=== PATIENT | female | born 1940 | race Caucasian/White ===

== ENCOUNTER 2021-12-16 14:38 | Inpatient (IN) ==
[2021-12-16 16:19] LABS: Basophils # (auto) 0.04 K/uL (0-0.2); Basophils % (auto) 0.6 %; Eosinophils # (auto) 0.45 K/uL (0-0.5); Eosinophils % (auto) 7.2 %; Hematocrit (blood only) 36.5 % (37-47); Hemoglobin 11.4 g/dL (12.0-16.0); Immature Granulocytes # (auto) 0.01 K/uL (0.00-0.02); Immature Granulocytes % (auto) 0.2 %; Lymphocytes # (auto) 0.85 K/uL (1.2-3.4); Lymphocytes % (auto) 13.7 %; Mean Corpuscular Hemoglobin 28.4 pg (25-34); Mean Corpuscular Hgb Conc 31.2 g/dL (32-36); Mean Corpuscular Volume 90.8 fL (80-100); Mean Platelet Volume 8.6 fL (7.4-10.4); Monocytes # (auto) 0.53 K/uL (0.11-0.59); Monocytes % (auto) 8.5 %; Neutrophils # (auto) 4.33 K/uL (1.4-6.5); Neutrophils % (auto) 69.8 %; Platelet Count 214 K/uL (130-400); RDW Coefficient of Variation 15.2 % (11.5-14.5); RDW Standard Deviation 50.8 fL (36.4-46.3); Red Blood Count 4.02 M/uL (4.2-5.4); White Blood Count 6.21 K/uL (4.8-10.8)
[2021-12-16 16:30] LABS: INR 0.9 (0.9-1.1); Partial Thromboplastin Ratio 0.9; Partial Thromboplastin Time 23.9 Seconds (21.0-31.0); Prothrombin Time 9.5 Seconds (9.0-12.0)
[2021-12-16 16:53] LABS: Troponin I < 0.03 ng/ml (0-0.04)
[2021-12-16 16:55] LABS: Alanine Aminotransferase 14 U/L (7-52); Albumin Globulin Ratio 1.6 (0.9-2); Alkaline Phosphatase 62 U/L (34-104); Anion Gap 8 (3-11); Aspartate Aminotransferase 17 U/L (13-39); BUN Creatinine Ratio 23.8 (10-20); Bilirubin,Total 0.4 mg/dl (0.2-1.0); Blood Urea Nitrogen 25 mg/dl (6-23); Calcium 9.3 mg/dl (8.5-10.1); Carbon Dioxide 23 mmol/L (21-32); Chloride 106 mmol/L (98-107); Creatinine Clr Calc Pharmacy 33.6 ml/min; Est GFR (African American) 56.9 ml/min; Est GFR (Non-African American) 49.1 ml/min; Globulin 2.5 gm/dl (2.5-4.0); Glucose 105 mg/dl (70-99(Fasting)); Potassium 4.2 mmol/L (3.5-5.1); Sodium 137 mmol/L (136-145); Total Protein 6.5 gm/dl (6.0-8.3)
--- NOTE | 2021-12-16 17:13 | Electrocardiogram Report ---
Test Reason : Blood Pressure : / mmHG Vent. Rate : 075 BPM Atrial Rate : 075 BPM P-R Int : 142 ms QRS Dur : 098 ms QT Int : 410 ms P-R-T Axes : 017 060 053 degrees QTc Int : 457 ms Poor data quality, interpretation may be adversely affected Normal sinus rhythm Poor R wave progression, consider anterior [place] vs. lead placement vs. LVH Abnormal ECG When compared with ECG of 14-JUN-2015 10:42, Nonspecific T wave abnormality now evident in Inferior leads Confirmed by Shayne Morley ([id number]) on 12/16/2021 5:13:34 PM Referred By: Confirmed By:Yazan Morley
[2021-12-16 17:25] LABS: Appearance Urine Clear (Clear); Bacteria Urine Automated Negative (Negative); Bilirubin Urine Negative (Negative); Blood Urine 1+ (Negative); Color Urine Yellow; Glucose Urine UA 3+ (Negative); Ketones Urine Negative (Negative); Leukocyte Esterase Urine Negative (Negative); Nitrite Urine Negative (Negative); Protein Urine Negative (Negative); RBC Urine Automated 0-4 /hpf (0-4); Specific Gravity Urine 1.044 (1.000-1.030); Urobilinogen Urine Negative (Negative)
--- NOTE | 2021-12-16 17:46 | Emergency Department Note ---
Impression & Plan Asthma with exacerbation, Pulmonary embolism, Dyspnea ED Provider Note NAME: Mary HARRELL AGE: 81 SEX: F : 1940 ARRIVES VIA: Walk-In INFORMANT: Patient, ED PROVIDER(S): Rufus Beckham MD Chief Complaint: Shortness of breath HPI: Patient states that she developed shortness of breath that she noticed w patrick talking to a friend in the afternoon yesterday. Patient states that this is without a mask. The patient states that this seems significantly worse today. She called her outpatient provider referred her for further evaluation treatment as well as a CAT scan of the chest. Patient states that she did miss her breathing treatment today and she thinks that that would help improve her symptoms. The patient has had productive cough but that this is chronic in nature and secondary to a history of asthma. Patient denies any prior history of PE or DVT. The patient denies any leg swelling. The patient denies any calf pain, surgeries, procedures or hospitalizations that were recent. Patient denies any abdominal pain nausea vomiting. The patient otherwise states that she is compliant with her medications. The patient did have an outpatient CAT scan was referred here as the patient does have a chronic trace PE. ROS: See HPI for pertinent positives and negatives. A total of 10 systems were reviewed and otherwise negative. Past medical history: See below Surgical history: See below Social history: See below Physical Exam: GENERAL: NAD, wearing glasses, wearing a mask, non-toxic. EYE EXAM: Normal conjunctiva. PERRL, no anisocoria and EOM's grossly intact w/o pain. NECK: Supple, no nuchal rigidity, no adenopathy, non-tender. No signs of meningismus. LUNGS: Clear to auscultation. Normal chest wall mechanics. HEART: NSR, no MRG. ABDOMEN: Abdomen soft, non-tender, normo-active bowel sounds, no masses, no rebound or guarding. BACK: No CVA TTP. SKIN: No rashes and no bruising. UPPER EXTREMITIES: Upper extremities are grossly normal. LOWER EXTREMITIES: Grossly normal, no edema. Negative Homans' sign bilaterally. NEURO EXAM: A&O x3, cranial nerves II-XII grossly intact, normal speech, moves all 4 extremities on command w/o issue. Differential diagnoses: Reactive airway disease, pneumonia, pneumothorax, COPD, CHF, infections, cardiac ischemia, pulmonary embolism, musculoskeletal, gastrointestinal, as well as other pathologies. Course: Patient was seen and evaluated the bedside. Full history physical exam was performed. EKG interpreted by me Normal sinus rhythm, rate of 75, normal intervals, normal axis, no obvious ST changes. Imaging Studies: See Below Obtained prior to arrival CT ANGIOGRAM OF THE CHEST CLINICAL HISTORY: Dyspnea. COMPARISON STUDY: Chest CT dated 04/24/2019. TECHNIQUE: Following the IV administration of 121 cc of Optiray 320, CT angiogram of the chest was performed from the upper abdomen to the thoracic inl et utilizing the pulmonary embolus protocol. Images are reviewed in the axial, sagittal, and coronal planes. 3-D MIPS images are created and assessed. IV contrast was administered without complication. A dose lowering technique was utilized adhering to the principles of ALARA. There is streak artifact from the patient's left arm which could not be elevated above the chest. CT DOSE: 257.03 mGy.cm FINDINGS: Thyroid: Imaged portions of the thyroid gland are normal in size and attenuation. Thoracic aorta: There is mild atherosclerotic calcification of the thoracic aorta, which is normal in caliber and demonstrates standard 3-vessel arch anatomy. The thoracic aorta is not well opacified. Pulmonary vasculature: The main pulmonary arteries are markedly dilated indicating pulmonary artery hypertension. There are no filling defects identified in main, lobar, or proximal segmental pulmonary branches to suggest acute pulmonary embolus. Evaluation of the peripheral branches is degraded by mo tion artifact. There is trace chronic pulmonary embolus within a branch of the right upper lobe pulmonary artery seen on image #142. Heart: The patient is status post midline sternotomy. The heart is enlarged and without pericardial effusion. Lungs and pleural spaces: Evaluation of the lung parenchyma is degraded by motion artifact. There is no airspace consolidation typical for pneumonia or ple ural effusion. The trachea and central airways are clear. Dependent atelectasis is noted at the lung bases. Mediastinum: There is no mediastinal lymphadenopathy. Carmen: Clear. Axillae: There is no axillary lymphadenopathy. Upper abdomen: Hepatic cysts measure up to 3.5 cm. There is a tiny hiatal hernia. Skeletal structures: The skeletal structures are osteopenic. Degenerative change and hyperkyphosis are noted in the thoracic spine. No lytic or blastic bony lesions are seen. IMPRESSION: 1. There is no evidence of acute pulmonary embolus in the main, lobar, or proximal segmental pulmonary arteries. Evaluation of the segmental and subsegmental branches is degraded by motion artifact. 2. Trace chronic pulmonary embolus is seen within a branch of the right upper lobe pulmonary artery. 3. There is no airspace consolidation or pleural effusion. 4. Cardiomegaly with evidence of pulmonary artery hypertension. 5. Additional findings as above. ACT 112: Negative or not required by law. Electronically signed by: Rony Vera M.D. 12/16/2021 2:07 PM Dictated:12/16/21 1358 Transcribed: 12/16/21 1405 Cardiac monitoring: An order was placed for continuous cardiac monitoring. The monitor shows a rate of 72 with sinus rhythm. MDM: Patient was seen due to concern for shortness of breath. The patient did have an outpatient CT which showed that she has a chronic PE but the patient has no prior history of PE. The patient does not have any obvious signs of DVT on exam as the patient does not have any overt swelling calf pain or erythema. Blood work was obtained and the patient was treated symptomatically with albuterol treatments as the patient does have a known history of asthma. , Patient patient has a white count of 6 with a hemoglobin 11.4. The patient's platelet count is unremarkable. Kidney function unremarkable. The patient troponin is not detectable. Given the patient may have an elements of pulmonary hypertension cardiomegaly and possible PE think it reasonable for observation and treatment here in the hospital to discuss further treatment options for the patient. I did speak with the on-call hospitalist Dr. 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) Family History Other Cancer Hypertension Social History Smoking Status: Never smoker Preferred Language: Ukrainian Feels Safe at Home: Yes Immunizations: Vaccinated for COVID-19 Allergies Allergies Allergy/AdvReac Type Severity Reaction Status Date / Time furosemide Allergy Mild rash from Verified 12/16/21 20:36 "GENERIC" lasix Penicillins Allergy Unknown Unknown Verified 12/16/21 20:36 sitagliptin Allergy Unknown ANAPHYLAXIS Verified 12/16/21 20:36 Sulfa (Sulfonamide Allergy Unknown PATEINT Verified 12/16/21 20:36 Antibiotics) HAS TOLERATED LASIX empagliflozin Allergy Blister Unverified 12/16/21 20:36 [From Jardiance] codeine AdvReac Intermediate Confusion Verified 12/16/21 20:36 prednisone AdvReac Intermediate delerium Verified 12/16/21 20:36 [id number]-LEP-HmR Reductase AdvReac Intermediate elevated ck Verified 12/16/21 20:36 Inhibitor [Zblpeaa-Nka-Zjs Reductase Inhibitor] Home Meds Home Medications Medication Instructions Recorded Confirmed albuterol sulfate 90 mcg/actuation 2 puff INHALATION Q4 PRN 04/25/19 12/16/21 aerosol inhaler amlodipine 2.5 mg tablet 2.5 mg PO DAILY 04/25/19 12/16/21 calcium carbonate 600 mg-vitamin 1 tab PO 2XWK 04/25/19 12/16/21 D3 10 mcg (400 unit) tablet (Calcium 600 + D(3)) carvedilol 6.25 mg tablet 3.125 mg PO QPM 04/25/19 12/16/21 carvedilol 6.25 mg tablet 6.25 mg PO QAM 04/25/19 12/16/21 ethacrynic acid 25 mg tablet 25 mg PO 4XWK 04/25/19 12/16/21 multivitamin 2 tab PO QAM 04/25/19 12/16/21 repaglinide 1 mg tablet 1 mg PO TID 04/25/19 12/16/21 trazodone 50 mg tablet 50 mg PO HS PRN 04/25/19 12/16/21 acetaminophen 650 mg 1,300 mg PO QAM 12/16/21 12/16/21 tablet,extended release budesonide 0.5 mg/2 mL suspension 0.5 mg INHALATION BID 12/16/21 12/16/21 for nebulization clindamycin HCl 150 mg capsule 600 mg PO Q6H PRN 12/16/21 12/16/21 diclofenac sodium 1 % topical gel 2 g TOPICAL QID PRN 12/16/21 12/16/21 empagliflozin 10 mg tablet 10 mg PO DAILY 12/16/21 12/16/21 (Jardiance) fluoxetine 40 mg capsule 40 mg PO DAILY 12/16/21 12/16/21 fluticasone propionate 230 2 puff INHALATION BID 12/16/21 12/16/21 mcg-salmeterol 21 mcg/actuation HFA inhaler (Advair HFA) glucosamine-chondroitin 250 mg-200 1 tab PO DAILY 12/16/21 12/16/21 mg tablet (Osteo Bi-Flex) ipratropium 0.5 mg-albuterol 3 mg 3 ml INHALATION Q6 PRN 12/16/21 12/16/21 (2.5 mg base)/3 mL nebulization soln levocetirizine 5 mg tablet 5 mg PO HS 12/16/21 12/16/21 lisinopril 10 mg tablet 10 mg PO BID 12/16/21 12/16/21 metformin 500 mg tablet,extended 500 mg PO BID 12/16/21 12/16/21 release 24 hr tiotropium bromide 2.5 2 puff INHALATION DAILY 12/16/21 12/16/21 mcg/actuation mist for inhalation (Spiriva Respimat) Results & Data (ED) Vital Signs Vital Signs - 24 hr 12/16/21 15:06 12/16/21 17:40 12/16/21 18:02 Temperature 36.1 C L Temperature Source Temporal Artery Scan Pulse Rate 82 73 71 Pulse Rate [Apical] 75 Pulse Rate [Exercises] Pulse Rate [Recovery] Pulse Rate [Resting] Pulse Rate from SpO2 Sensor 70 Respiratory Rate 16 19 17 Respiratory Rate [Exercises] Respiratory Rate [Recovery] Respiratory Rate [Resting] Respiratory Effort / Characteristics Non-Labored Non-Labored Spontaneous Respiratory Depth Normal Blood Pressure 143/65 H 143/57 H Blood Pressure [Right Arm] 158/66 H Blood Pressure Mean 91 85 Blood Pressure Mean [Right Arm] 96 Pulse Oximetry 100 100 100 Pulse Oximetry [Exercises] Pulse Oximetry [Recovery] Pulse Oximetry [Resting] Oxygen Delivery Method Room Air Room Air Room Air Sepsis Recent Fever Within 48 Hours No Sepsis New/Unexplained Change in Mental Status No Sepsis Action Taken by Nursing No Action Required 12/16/21 18:30 12/16/21 19:00 12/16/21 19:03 Temperature Temperature Source Pulse Rate 71 77 Pulse Rate [Apical] Pulse Rate [Exercises] 107 H Pulse Rate [Recovery] 86 Pulse Rate [Resting] 77 Pulse Rate from SpO2 Sensor 68 71 Respiratory Rate 14 15 Respiratory Rate [Exercises] 30 H Respiratory Rate [Recovery] 22 Respiratory Rate [Resting] 14 Respiratory Effort / Characteristics Respiratory Depth Blood Pressure 146/55 H Blood Pressure [Right Arm] Blood Pressure Mean 85 Blood Pressure Mean [Right Arm] Pulse Oximetry 100 99 Pulse Oximetry [Exercises] 97 Pulse Oximetry [Recovery] 93 Pulse Oximetry [Resting] 99 Oxygen Delivery Method Nebulizer Room Air Room Air Sepsis Recent Fever Within 48 Hours Sepsis New/Unexplained Change in Mental Status Sepsis Action Taken by Nursing 12/16/21 19:30 12/16/21 21:00 Temperature Temperature Source Pulse Rate 77 74 Pulse Rate [Apical] Pulse Rate [Exercises] Pulse Rate [Recovery] Pulse Rate [Resting] Pulse Rate from SpO2 Sensor 75 75 Respiratory Rate 16 15 Respiratory Rate [Exercises] Respiratory Rate [Recovery] Respiratory Rate [Resting] Respiratory Effort / Characteristics Respiratory Depth Blood Pressure 133/53 L Blood Pressure [Right Arm] Blood Pressure Mean 79 Blood Pressure Mean [Right Arm] Pulse Oximetry 99 96 Pulse Oximetry [Exercises] Pulse Oximetry [Recovery] Pulse Oximetry [Resting] Oxygen Delivery Method Room Air Room Air Sepsis Recent Fever Within 48 Hours Sepsis New/Unexplained Change in Mental Status Sepsis Action Taken by [facility] Medications Current Medication List: was personally reviewed by me Laboratory Data Attestation: I reviewed the patient's lab results. Result diagrams: 12/16/21 15:53 12/16/21 15:53 Lab Results 12/16/21 12/16/21 12/16/21 Range/Units 15:53 15:53 15:53 WBC 6.21 (4.8-10.8) K/uL RBC 4.02 L (4.2-5.4) M/uL Hgb 11.4 L (12.0-16.0) g/dL Hct 36.5 L (37-47) % MCV 90.8 (80-100) fL MCH 28.4 (25-34) pg MCHC 31.2 L (32-36) g/dL RDW Std Deviation 50.8 H (36.4-46.3) fL RDW Coeff of Miguelangel 15.2 H (11.5-14.5) % Plt Count 214 (130-400) K/uL MPV 8.6 (7.4-10.4) fL Immature Gran % (Auto) 0.2 % Neut % (Auto) 69.8 % Lymph % (Auto) 13.7 % [place] % (Auto) 8.5 % Eos % (Auto) 7.2 % Baso % (Auto) 0.6 % Neut # (Auto) 4.33 (1.4-6.5) K/uL Lymph # (Auto) 0.85 L (1.2-3.4) K/uL [place] # (Auto) 0.53 (0.11-0.59) K/uL Eos # (Auto) 0.45 (0-0.5) K/uL Baso # (Auto) 0.04 (0-0.2) K/uL Immature Gran # (Auto) 0.01 (0.00-0.02) K/uL PT 9.5 (9.0-12.0) Seconds INR 0.9 (0.9-1.1) APTT 23.9 (21.0-31.0) Seconds PTT Ratio 0.9 Sodium 137 (136-145) mmol/L Potassium 4.2 (3.5-5.1) mmol/L Chloride 106 (98-107) mmol/L Carbon Dioxide 23 (21-32) mmol/L Anion Gap 8 (3-11) BUN 25 H (6-23) mg/dl Creatinine 1.05 (0.6-1.2) mg/dl Est Cr Clr Drug Dosing 33.6 ml/min Est GFR ( Amer) 56.9 ml/min Est GFR (Non-Af Amer) 49.1 ml/min BUN/Creatinine Ratio 23.8 H (10-20) Glucose 105 H (70-99(Fasting)) mg/dl Calcium 9.3 (8.5-10.1) mg/dl Total Bilirubin 0.4 (0.2-1.0) mg/dl AST 17 (13-39) U/L ALT 14 (7-52) U/L Alkaline Phosphatase 62 (34-104) U/L Troponin I < 0.03 (0-0.04) ng/ml Total Protein 6.5 (6.0-8.3) gm/dl Albumin 4.0 (3.4-5.0) gm/dl Globulin 2.5 (2.5-4.0) gm/dl Albumin/Globulin Ratio 1.6 (0.9-2) Urine Color Urine Appearance (Clear) Urine pH (4.5-7.5) Ur Specific [place] (1.000-1.030) Urine Protein (Negative) Urine Glucose (UA) (Negative) Urine Ketones (Negative) Urine Blood (Negative) Urine Nitrite (Negative) Urine Bilirubin (Negative) Urine Urobilinogen (Negative) Ur Leukocyte Esterase (Negative) Urine WBC (Auto) (0-5) /hpf Urine RBC (Auto) (0-4) /hpf U Hyaline Cast (Auto) (0-5) /lpf U Epithel Cells (Auto) (0-5) /lpf Urine Bacteria (Auto) (Negative) SARS-CoV-2, RNA, NAAT (NEGATIVE) 12/16/21 12/16/21 Range/Units 20:37 Unknown WBC (4.8-10.8) K/uL RBC (4.2-5.4) M/uL Hgb (12.0-16.0) g/dL Hct (37-47) % MCV (80-100) fL MCH (25-34) pg MCHC (32-36) g/dL RDW Std Deviation (36.4-46.3) fL RDW Coeff of Miguelangel (11.5-14.5) % Plt Count (130-400) K/uL MPV (7.4-10.4) fL Immature Gran % (Auto) % Neut % (Auto) % Lymph % (Auto) % [place] % (Auto) % Eos % (Auto) % Baso % (Auto) % Neut # (Auto) (1.4-6.5) K/uL Lymph # (Auto) (1.2-3.4) K/uL [place] # (Auto) (0.11-0.59) K/uL Eos # (Auto) (0-0.5) K/uL Baso # (Auto) (0-0.2) K/uL Immature Gran # (Auto) (0.00-0.02) K/uL PT (9.0-12.0) Seconds INR (0.9-1.1) APTT (21.0-31.0) Seconds PTT Ratio Sodium (136-145) mmol/L Potassium (3.5-5.1) mmol/L Chloride (98-107) mmol/L Carbon Dioxide (21-32) mmol/L Anion Gap (3-11) BUN (6-23) mg/dl Creatinine (0.6-1.2) mg/dl Est Cr Clr Drug Dosing ml/min Est GFR ( Amer) ml/min Est GFR (Non-Af Amer) ml/min BUN/Creatinine Ratio (10-20) Glucose (70-99(Fasting)) mg/dl Calcium (8.5-10.1) mg/dl Total Bilirubin (0.2-1.0) mg/dl AST (13-39) U/L ALT (7-52) U/L Alkaline Phosphatase (34-104) U/L Troponin I (0-0.04) ng/ml Total Protein (6.0-8.3) gm/dl Albumin (3.4-5.0) gm/dl Globulin (2.5-4.0) gm/dl Albumin/Globulin Ratio (0.9-2) Urine Color Yellow Urine Appearance Clear (Clear) Urine pH 5.0 (4.5-7.5) Ur Specific [place] 1.044 H (1.000-1.030) Urine Protein Negative (Negative) Urine Glucose (UA) 3+ H (Negative) Urine Ketones Negative (Negative) Urine Blood 1+ H (Negative) Urine Nitrite Negative (Negative) Urine Bilirubin Negative (Negative) Urine Urobilinogen Negative (Negative) Ur Leukocyte Esterase Negative (Negative) Urine WBC (Auto) 1-5 (0-5) /hpf Urine RBC (Auto) 0-4 (0-4) /hpf U Hyaline Cast (Auto) 1-5 (0-5) /lpf U Epithel Cells (Auto) 5-10 H (0-5) /lpf Urine Bacteria (Auto) Negative (Negative) SARS-CoV-2, RNA, NAAT NEGATIVE (NEGATIVE) Administered Medications Discontinued Medications Albuterol (Albuterol 0.083% Nebu Soln 3 Ml Vial) 5 mg NEB NOW STA; Protocol Stop: 12/16/21 18:20 Last Admin: 12/16/21 18:26 Dose: 5 mg Documented by: [id number] Discharge Plan Visit Data Chief Complaint: Shortness of Breath/Dyspnea Stated Complaint: CAME FROM CT, POSSIBLE BLOOD CLOT, SOB ED Provider: Rufus Beckham Discharge Problem: Asthma with exacerbation, Pulmonary embolism, Dyspnea Patient Disposition: Admitted As Inpatient Forms Stand Alone Forms: My [facility] Prescriptions Prescriptions: No Action multivitamin Tablet 2 tab PO QAM RF: 0 carvedilol 6.25 mg tablet 3.125 mg PO QPM RF: 0 carvedilol 6.25 mg tablet 6.25 mg PO QAM RF: 0 trazodone 50 mg tablet 50 mg PO HS PRN (Reason: Insomnia) RF: 0 ethacrynic acid 25 mg tablet 25 mg PO 4XWK RF: 0 amlodipine 2.5 mg tablet 2.5 mg PO DAILY RF: 0 albuterol sulfate 90 mcg/actuation HFA aerosol inhaler 2 puff inhalation Q4 PRN (Reason: Wheezing) RF: 0 repaglinide 1 mg tablet 1 mg PO TID RF: 0 calcium carbonate-vitamin D3 [Calcium 600 + D(3)] 600 mg(1,500mg) -400 unit Tablet 1 tab PO 2XWK RF: 0 fluoxetine 40 mg capsule 40 mg PO DAILY RF: 0 ipratropium-albuterol 0.5 mg-3 mg(2.5 mg base)/3 mL solution for nebulization 3 ml INHALATION Q6 PRN (Reason: Shortness Of Breath Or Wheezing) RF: 0 clindamycin HCl 150 mg Capsule 600 mg PO Q6H PRN (Reason: .dental procedures) RF: 0 acetaminophen [Tylenol Arthritis] 650 mg Tablet Extended Release 1,300 mg PO QAM RF: 0 lisinopril 10 mg Tablet 10 mg PO BID RF: 0 budesonide 0.5 mg/2 mL suspension for nebulization 0.5 mg inhalation BID RF: 0 metformin 500 mg tablet extended release 24 hr 500 mg PO BID RF: 0 glucosamine-chondroitin [Osteo Bi-Flex] 250-200 mg Tablet 1 tab PO DAILY RF: 0 Advair HFA 230-21 mcg/actuation HFA aerosol inhaler 2 puff INHALATION BID RF: 0 levocetirizine 5 mg tablet 5 mg PO HS RF: 0 diclofenac sodium [Voltaren] 1 % Gel 2 g TOPICAL QID PRN (Reason: Pain) RF: 0 Spiriva Respimat 2.5 mcg/actuation mist 2 puff INHALATION DAILY RF: 0 Jardiance 10 mg tablet 10 mg PO DAILY RF: 0 Referrals Referrals: Letitia Nam, [Primary Care Provider] -
[2021-12-16] MEDS ORDERED: ALBUTEROL 0.083% NEBU SOLN 3 ML VIAL NEB STA (18:19)
[2021-12-16] MEDS ORDERED: DICLOFENAC SOD 1% GEL 100 GM TUBE EXT PRN (23:54)
[2021-12-16] MEDS ORDERED: CLINDAMYCIN 150MG HOME PACK PO PRN (23:54)
[2021-12-16] MEDS ORDERED: traZODone HCL 50 MG TAB PO PRN (23:54)
[2021-12-16] MEDS ORDERED: NITROGLYCERIN SL 0.4 MG/TAB TAB SL PRN (23:54)
[2021-12-16] MEDS ORDERED: ALBUTEROL HFA 8 GM INHALER INH PRN (23:54)
[2021-12-16] MEDS ORDERED: ALBUT/IPRATROP 3MG/0.5MG NEB 3 ML VIAL INH PRN (23:54)
[2021-12-16] MEDS ORDERED: ACETAMINOPHEN 325 MG TAB PO PRN (23:54)
[2021-12-16] MEDS ORDERED: LEVALBUTEROL HCL 1.25 MG/3 ML NEB NEB PRN (23:54)
[2021-12-17] MEDS ORDERED: ENOXAPARIN INJ 40 MG/0.4 ML SYR SQ SCH (00:15)
[2021-12-17] MEDS: BUDESONIDE 0.5 MG/2 ML VIAL (PULMICORT) INH SCH ×2 (00:33→07:24)
[2021-12-17] MEDS: carvediloL 3.125 MG TAB PO SCH ×2 (00:52→20:54)
[2021-12-17] MEDS: INSULIN ASPART PER UNIT SC SCH ×5 (00:52→20:56)
[2021-12-17] MEDS: lisinopril 10 MG TAB PO SCH ×3 (00:53→20:55)
[2021-12-17] MEDS: CETIRIZINE HCL 10 MG TABLET PO SCH ×2 (00:53→20:54)
[2021-12-17] MEDS: INSULIN GLARGINE SOLOSTAR 100 UNITS/ML 3 ML PEN SC SCH ×3 (00:54→20:56)
[2021-12-17 06:07] LABS: Basophils # (auto) 0.04 K/uL (0-0.2); Basophils % (auto) 0.7 %; Eosinophils # (auto) 0.52 K/uL (0-0.5); Eosinophils % (auto) 8.8 %; Hematocrit (blood only) 35.4 % (37-47); Hemoglobin 11.2 g/dL (12.0-16.0); Immature Granulocytes # (auto) 0.01 K/uL (0.00-0.02); Immature Granulocytes % (auto) 0.2 %; Lymphocytes # (auto) 0.77 K/uL (1.2-3.4); Mean Corpuscular Hemoglobin 28.5 pg (25-34); Mean Corpuscular Hgb Conc 31.6 g/dL (32-36); Mean Corpuscular Volume 90.1 fL (80-100); Mean Platelet Volume 8.4 fL (7.4-10.4); Monocytes # (auto) 0.52 K/uL (0.11-0.59); Monocytes % (auto) 8.8 %; Neutrophils # (auto) 4.05 K/uL (1.4-6.5); Neutrophils % (auto) 68.5 %; Platelet Count 208 K/uL (130-400); RDW Coefficient of Variation 15.1 % (11.5-14.5); Red Blood Count 3.93 M/uL (4.2-5.4); White Blood Count 5.91 K/uL (4.8-10.8)
--- NOTE | 2021-12-17 06:08 | History and Physical Report ---
DATE OF ADMISSION: 12/16/2021. CHIEF COMPLAINT: Shortness of breath on exertion. HISTORY OF PRESENT ILLNESS: This is an 81-year-old female with past medical history significant type 2 diabetes, hyperlipidemia, asthma, chronic cough, dyspnea on exertion, history of asymptomatic bilateral carotid stenosis, nonrheumatic aortic valve insufficiency, hypertension, irritable bowel syndrome, chronic kidney disease stage III, degenerative disk disease, who presents with shortness of breath on exertion. The patient has shortness of breath with exertion for some time. Last Wednesday when she was talking also she was getting short of breath, that is the reason she went to the PCP's office and advised to come to the hospital and CTA chest done here shows no evidence of acute PE, trace chronic pulmonary emboli seen within the branch of the right upper lobe pulmonary artery. No consolidation or pleural effusion. Cardiomegaly with evidence of pulmonary hypertension. The patient has a chronic cough from her asthma. Denies any headache. No blurred visions, no earache, no runny nose, no sore throat. Appetite is okay. No difficulty swallowing. No chest pain, no nausea, no vomiting, no abdominal pain. Normal bowel and bladder movements. She says if she hurries up, she gets short of breath, but if she walks slowly, she can walk up to a block. ALLERGIES: FUROSEMIDE, PENICILLINS, SITAGLIPTIN, SULFA ANTIBIOTICS, JARDIANCE, CODEINE, PREDNISONE, STATINS. PAST MEDICAL HISTORY: As mentioned above. PAST SURGICAL HISTORY: Right knee arthroplasty, colonoscopy, tonsillectomy, repair of ruptured rotator cuff, aortic valve replacement. MEDICATIONS: The patient is on Tylenol 1000 mg p.o. a.m., albuterol 2 puffs inhalation q. 4 hours p.r.n., amlodipine 2.5 mg p.o. daily, budesonide 0.5 mg inhalation b.i.d., calcium plus vitamin D one tablet 2 times a week, Coreg 3.125 mg p.o. p.m. and 6.25 mg p.o. a.m., clindamycin 600 mg p.o. q. 6 hours p.r.n., diclofenac sodium 2 g topical q.i.d. p.r.n., Jardiance 10 mg p.o. daily, ethacrynic acid acid 25 mg p.o. 4 times a week, fluoxetine 40 mg p.o. daily, Flonase, Advair Diskus 2 puffs inhalation b.i.d., glucosamine 1 tablet p.o. daily, DuoNebs 3 mL q. 6 hours p.r.n., levocetirizine 5 mg p.o. at bedtime, lisinopril 10 mg p.o. b.i.d., metformin 500 mg p.o. b.i.d., multivitamin 2 tablets p.o. q.a.m., repaglinide 1 mg p.o. t.i.d., Spiriva Respimat 2 puffs inhalation daily, trazodone 50 mg p.o. at bedtime p.r.n. FAMILY HISTORY: Significant for mother has allergies, hypotension, osteoporosis; father has prostate cancer. SOCIAL HISTORY: , no smoking, no alcohol, no drug use. REVIEW OF SYSTEMS: As per HPI. Rest of the review of systems is negative. PHYSICAL EXAMINATION: GENERAL: The patient is of moderate build, not in acute distress. VITAL SIGNS: Temperature 36.1, pulse 74, respiratory rate 15, blood pressure 133/53, oxygen 96% on room air. HEENT: Pupils equal, round and reactive to light. Oral mucosa moist. NECK: No JVD, no neck masses. CARDIOVASCULAR: S1 and S2 heard. Regular rate and rhythm. No murmur, no gallop. RESPIRATORY SYSTEM: Normal AP diameter. No accessory muscle use. No wheezing, no crackles. ABDOMEN: Soft, bowel sounds present, nontender, no distention. CENTRAL NERVOUS SYSTEM: Cranial nerves II-XII grossly intact, nonfocal. EXTREMITIES: No edema, no erythema. LABORATORY DATA: WBC 6.2, hemoglobin 11.4, hematocrit 36.5, platelets 214. PT 9.5, INR 0.9, APTT 23.9. Sodium 137, potassium 4.2, chloride 106, bicarbonate 23, BUN 25, creatinine 1.05. Serum glucose 105, calcium 9.3, total bilirubin 0.4, AST 17, ALT 14, alkaline phosphatase 62. Troponin I less than 0.03. Urinalysis, +3 glucose. SARS-CoV-2 RNA negative. EKG: Normal sinus rhythm at a rate of 75.No acute st changes seen. ASSESSMENT AND PLAN: This is an 81-year-old female who presents with shortness of breath on exertion. 1. Shortness of breath with exertion going on for some time, but the last couple of days she is getting short of breath even with talking. Currently saturating okay on room air and CT scan shows pulmonary hypertension and chronic pulmonary embolism on the right upper lung. Will get an echocardiogram and consult pulmonary for further recommendations. 2. History of asthma: Continue her home inhalers and nebs p.r.n. 3. History of hypertension: Continue Coreg, amlodipine, lisinopril. Monitor the blood pressure 4. History of diabetes: Hold her home medication. Placed on insulin Lantus, sliding scale. Follow the blood sugars, follow HbA1c levels. 5. Chronic kidney disease stage III: Creatinine is 1.05. Will follow the labs. 6. Deep venous thrombosis prophylaxis: Will be placed on Lovenox. DISPOSITION: Closely monitor in the med tele. PT/OT prior to discharge. Social service to help with discharge planning. The patient may need a 2-step study prior to discharge. Job ID: [id number] [email or web address]
[2021-12-17 06:13] LABS: BUN Creatinine Ratio 21.7 (10-20); Est GFR (African American) 66.7 ml/min; Est GFR (Non-African American) 57.6 ml/min; Magnesium 1.9 mg/dl (1.7-2.4); Potassium 4.2 mmol/L (3.5-5.1)
[2021-12-17] MEDS ORDERED: NON-FORMULARY MEDICATION (Glucosamine-Chondroitin [Osteo Bi-Flex] 250-200 mg Tablet) PO SCH (09:00)
[2021-12-17] MEDS ORDERED: ETHACRYNIC ACID 25 MG TAB PO SCH (09:00)
[2021-12-17] MEDS: FLUTICASONE/VILANTEROL 200/25MCG 14 PUFFS/INHALER INH SCH (09:26)
[2021-12-17] MEDS: UMECLIDINIUM BROMIDE 62.5MCG/BLISTER 7 PUFFS/INHALER INH SCH (09:27)
[2021-12-17] MEDS: amLODIPine BESYLATE 5 MG TAB PO SCH (09:27)
[2021-12-17] MEDS: carvediloL 6.25 MG TAB PO SCH (09:28)
[2021-12-17] MEDS: FLUoxetine HCL 20 MG CAP PO SCH (09:28)
[2021-12-17] MEDS: MULTIVITAMIN TAB PO SCH (09:29)
[2021-12-17] MEDS ORDERED: GLUCOSE 40% GEL 15 GM TUBE PO PRN (12:09)
[2021-12-17] MEDS ORDERED: GLUCOSE 10 TABS/TUBE PO PRN (12:09)
[2021-12-17] MEDS ORDERED: DEXTROSE 50% 50 ML SYRINGE IV PRN (12:09)
[2021-12-17] MEDS ORDERED: CARBOHYDRATES FOR HYPOGLYCEMIA PO PRN (12:09)
[2021-12-17] MEDS ORDERED: GLUCAGON FOR INJ 1 MG VIAL SQ PRN (12:09)
--- NOTE | 2021-12-17 14:17 | Ultrasound Report ---
BILATERAL LOWER EXTREMITY VENOUS DOPPLER HISTORY: History of pulmonary embolus. Evaluate for DVT. COMPARISON STUDY: None. FINDINGS: There is normal compressibility, flow, and augmentation within the left lower extremity hubert p venous system. There is occlusive thrombus seen within the right superficial femoral vein and nonoc clusive thrombus within the popliteal vein. There is also near occlusive thrombus within one of 2 rig ht peroneal veins. IMPRESSION: 1. Right lower extremity DVT as described above. This is age indeterminate. 2. No left lower extremity DVT. ACT 112: Negative or not required by law. Electronically signed by: Primitivo Horvath M.D. 12/17/2021 2:16 PM
--- NOTE | 2021-12-17 16:49 | Pulmonary Consultation ---
Date of Consultation December 17, 2021 Assessment & Plan (1) Chronic pulmonary embolism: (2) Chronic deep vein thrombosis (DVT): (3) Shortness of breath: Chest 12/16/2021 reviewed: No infiltrate Cardiomegaly with enlargement pulmonary artery Patient has had enlarged pulmonary artery when the previous CAT scans --Chronic pulmonary embolism Patient also found to have DVT which seem to be chronic right lower extremity Patient will need to be on anticoagulation I changed the patient's anticoagulation to therapeutic Lovenox --Enlarged pulmonary artery Patient echo does not show any elevated right-sided pressures, right ventricle function is normal She did have Ross procedure in 1997 and that might be the reason why we are having an enlarged pulmonary artery Patient does not show any signs of pulmonary hypertension Patient does seem to have chronic PE but given no elevated right-sided pressures I do not think CTEPH is what we are dealing here with --Asthma On Advair and Spiriva at home I also see budesonide nebulized on top of that I would not recommend budesonide nebulized if the patient is already on Advair and Spiriva Plan: Start the patient anticoagulation. Currently I would do therapeutic Lovenox Can change to p.o. Doacs. Would recommend to get input from hematology to see if warfarin is recommended and chronic PEs I do recommend to make the patient walk to see if she needs oxygen on exertion If she gets significantly dyspneic on exertion if she gets hypoxic and we can consider a right heart cath to look at the pulmonary pressures. This can be done as an outpatient as well if the patient symptoms have resolved Case discussed with Dr. Moore Pulmonary will sign off. Please call directly with any questions Please note the above document was generated using voice recognition software. It may contain grammatical, syntax or spelling errors.Any formal questions or concerns about the content, text or information contained within the body of this dictation should be directly addressed to the provider for clarification. History of Present Illness Attending Physician: Duglas Moore MD History of Present Illness 81-year-old female coming to pulmonary because of abnormal chest CT findings Past medical history: Hypertension, depression/anxiety, asthma, aortic valve replacement back in 1997 with a donor valve, Type 2 diabetes Pulmonary consulted because of the abnormal chest CT At the time of examination patient said that she is doing much better She said the shortness of breath is improved She still complains of shortness of breath on exertion. Denies any fever or chills Does complain of cough but this has not changed from before She has been compliant with it and has been using on a regular basis When she does get short of breath she denies any wheezing, no chest tightness, no chest pain. Social history: Lifetime non-smoker. Used to be a first assistant manager. No family history of lung cancer Allergies Allergy/AdvReac Type Severity Reaction Status Date / Time furosemide Allergy Mild rash from Verified 12/16/21 20:36 "GENERIC" lasix Penicillins Allergy Unknown Unknown Verified 12/16/21 20:36 sitagliptin Allergy Unknown ANAPHYLAXIS Verified 12/16/21 20:36 Sulfa (Sulfonamide Allergy Unknown PATEINT Verified 12/16/21 20:36 Antibiotics) HAS TOLERATED LASIX empagliflozin Allergy Blister Unverified 12/16/21 20:36 [From Jardiance] codeine AdvReac Intermediate Confusion Verified 12/16/21 20:36 prednisone AdvReac Intermediate delerium Verified 12/16/21 20:36 Dljrcto-LDV-PiW Reductase AdvReac Intermediate elevated ck Verified 12/16/21 20:36 Inhibitor [Drzojlp-Zhl-Rrj Reductase Inhibitor] Home Medications Medication Instructions Recorded Confirmed Type albuterol sulfate 90 mcg/actuation 2 puff INHALATION Q4 PRN 04/25/19 12/16/21 History aerosol inhaler amlodipine 2.5 mg tablet 2.5 mg PO DAILY 04/25/19 12/16/21 History calcium carbonate 600 mg-vitamin 1 tab PO 2XWK 04/25/19 12/16/21 History D3 10 mcg (400 unit) tablet (Calcium 600 + D(3)) carvedilol 6.25 mg tablet 3.125 mg PO QPM 04/25/19 12/16/21 History carvedilol 6.25 mg tablet 6.25 mg PO QAM 04/25/19 12/16/21 History ethacrynic acid 25 mg tablet 25 mg PO 4XWK 04/25/19 12/16/21 History multivitamin 2 tab PO QAM 04/25/19 12/16/21 History repaglinide 1 mg tablet 1 mg PO TID 04/25/19 12/16/21 History trazodone 50 mg tablet 50 mg PO HS PRN 04/25/19 12/16/21 History acetaminophen 650 mg 1,300 mg PO QAM 12/16/21 12/16/21 History tablet,extended release budesonide 0.5 mg/2 mL suspension 0.5 mg INHALATION BID 12/16/21 12/16/21 History for nebulization clindamycin HCl 150 mg capsule 600 mg PO Q6H PRN 12/16/21 12/16/21 History diclofenac sodium 1 % topical gel 2 g TOPICAL QID PRN 12/16/21 12/16/21 History empagliflozin 10 mg tablet 10 mg PO DAILY 12/16/21 12/16/21 History (Jardiance) fluoxetine 40 mg capsule 40 mg PO DAILY 12/16/21 12/16/21 History fluticasone propionate 230 2 puff INHALATION BID 12/16/21 12/16/21 History mcg-salmeterol 21 mcg/actuation HFA inhaler (Advair HFA) glucosamine-chondroitin 250 mg-200 1 tab PO DAILY 12/16/21 12/16/21 History mg tablet (Osteo Bi-Flex) ipratropium 0.5 mg-albuterol 3 mg 3 ml INHALATION Q6 PRN 12/16/21 12/16/21 History (2.5 mg base)/3 mL nebulization soln levocetirizine 5 mg tablet 5 mg PO HS 12/16/21 12/16/21 History lisinopril 10 mg tablet 10 mg PO BID 12/16/21 12/16/21 History metformin 500 mg tablet,extended 500 mg PO BID 12/16/21 12/16/21 History release 24 hr tiotropium bromide 2.5 2 puff INHALATION DAILY 12/16/21 12/16/21 History mcg/actuation mist for inhalation (Spiriva Respimat) Patient History Medical History Aortic valve insufficiency Carotid artery stenosis Diabetes mellitus Hyperlipidemia Irritable colon Osteoporosis 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) Family History Other Cancer Hypertension Social History Smoking Status: Never smoker Second Hand Exposure: No; Do You Dip or Chew Tobacco: No; Hx Alcohol Use: No Hx Substance Use: No Preferred Language: Dominican Communication Ability: Effective Argon Tester Required: No Beliefs That Will Affect Care: None marital status: / Current Living Situation: Alone How many Children do You have: 1 Other Information That Helps Us Care for You: No Feels Safe at Home: Yes Safety Concerns: Feels Safe At This Time Assistive Devices: Nebulizer Review of Systems Review of Systems: All systems reviewed & are unremarkable except as noted in HPI & below Physical Exam Physical Exam: Constitutional: No acute distress HEENT: EOMI, PERRLA Respiratory system: Decreased air entry bilaterally, no wheeze, no rhonchi, positive crackles left lower lobe CVS: S1-S2 positive, no murmurs or gallops Abdomen: Soft, nontender, nondistended, positive bowel sounds x4 Extremities: +2 pulses bilaterally radialis/ dorsalis pedis, no cyanosis, no edema Neuro: Awake alert oriented x3 Psych: Normal mood and affect G/U: No [place] Skin: no rashes, warm and dry Lymphatic: no cervical or axillary lymphadenopathy Results & Data Results & [facility] ([facility]) Vital Signs (Past 12 Hours) Vital Signs Temp Pulse Pulse Resp BP BP Pulse Ox 12/17/21 08:36 36.7 C 74 18 129/63 98 12/17/21 07:24 73 16 97 12/17/21 06:18 70 12/17/21 01:03 75 12/17/21 00:34 70 16 99 12/17/21 00:07 36.6 C 72 18 157/64 H 100 12/16/21 22:30 71 15 98 12/16/21 22:01 71 18 131/44 L 98 Laboratory Results 12/17/21 05:35 12/17/21 05:35 PG Care Time/CCT Total # of Minutes Spent Total Time Spent with Patient: Total time spent is greater than 50% in coordination of care (as documented) at patient's floor/unit and/or counseling patient: Coding Level of Care Code 80117 Initial Inpt Care Lvl 3 Diagnoses Chronic pulmonary embolism I27.82 Chronic deep vein thrombosis (DVT) I82.509 Shortness of breath R06.02
--- NOTE | 2021-12-17 16:57 | Hospitalist Progress Note ---
Date of Service December 17, 2021 Assessment & Plan (1) Chronic pulmonary embolism: (2) Chronic deep vein thrombosis (DVT): Plan: Patient is an 81-year-old female who presents with shortness of breath on exertion. Chronic Pulmonary embolism Chronic deep vein thrombosis Less Likely chronic thromboembolic pulmonary hypertension --CTA:There is no evidence of acute pulmonary embolus in the main, lobar, or proximal segmental pulmonary arteries. Evaluation of the segmental and subsegmental branches is degraded by motion artifact. Trace chronic pulmonary embolus is seen within a branch of the right upper lobe pulmonary artery. There is no airspace consolidation or pleural effusion. Cardiomegaly with evidence of pulmonary artery hypertension. --Venous Doppler:Right lower extremity DVT as described above. This is age indeterminate. No left lower extremity DVT. --ECHO: EF 55 to 60%. S/P Ross Procedure. Moderate to severe aortic regurgitation. Aortic stenosis is absent. Mild tricuspid regurgitation. Degree of aortic insufficiency similar to prior echo in 2012. --Needs Hypercoagulable work up as outpatient --Needs 2 step prior to discharge --If patient desaturates on exertion, she will need Right heart Cath --Started on therapeutic Lovenox --Appreciate Pulmonology Input --Discussed with Hematology:OK to transition to Apixaban for management of Chronic PE Asthma: Continue home inhalers Nebs PRN DC On discharge Enlarged pulmonary artery Echo did not show any elevated right sided pressures H/O Ross Procedure If patient gets hypoxic, will need right heart catheterization Hypertension: Continue Coreg, amlodipine, lisinopril. DM II Hold home medications Continue ISS, Lantus Update HbA1C CKD III Cr 1.05 Monitor DVT Px: Lovenox SQ Code Status Full Code Admission and Anticipated Discharge Date Admission Date: December 16, 2021 Subjective Patient is seen and examined at bedside Was getting ECHO this morning during my encounter States Dyspnea is better today Offers no other complaints Denies any chest pain, dizziness, nausea, abdominal pain Review of Systems Review of Systems: All systems reviewed & are unremarkable except as noted in Subjective Physical Exam Physical Exam: Physical Exam: Vitals signs as noted above General Appearance:Thin, frail, elderly, no apparent distress Head: normocephalic, Atraumatic Eyes: normal inspection, EOMI Neck: supple, Trachea midline Respiratory/Chest: Decreased breath sounds, CTA Cardiovascular: S1, S2, + murmur Abdomen/GI:Soft, Non tender, Bowel sounds present Extremities/Musculoskeletal:normal inspection, no edema Neurologic/Psych:AAOX3, grossly no focal neurological deficits Skin: normal color, warm Results & Data Results & Data ([facility]) Vital Signs (Past 12 Hours) Vital Signs Temp Pulse Pulse Resp BP Pulse Ox 12/17/21 16:06 36.8 C 70 18 114/62 98 12/17/21 14:55 73 12/17/21 08:36 36.7 C 74 18 129/63 98 12/17/21 07:24 73 16 97 12/17/21 06:18 70 Laboratory Results Short CBC 12/17/21 Range/Units 05:35 WBC 5.91 (4.8-10.8) K/uL Hgb 11.2 L (12.0-16.0) g/dL Hct 35.4 L (37-47) % Plt Count 208 (130-400) K/uL BMP 12/16/21 12/17/21 15:53 05:35 Sodium 137 137 Potassium 4.2 4.2 Chloride 106 107 Carbon Dioxide 23 23 BUN 25 H 20 Creatinine 1.05 0.92 Glucose 105 H 124 H Calcium 9.3 9.0 Cardiac Enzymes 12/16/21 Range/Units 15:53 Troponin I < 0.03 (0-0.04) ng/ml Liver Function 12/16/21 Range/Units 15:53 Total Bilirubin 0.4 (0.2-1.0) mg/dl AST 17 (13-39) U/L ALT 14 (7-52) U/L Alkaline Phosphatase 62 (34-104) U/L Albumin 4.0 (3.4-5.0) gm/dl Urine 12/16/21 Range/Units Unknown Urine Color Yellow Urine Appearance Clear (Clear) Urine pH 5.0 (4.5-7.5) Ur Specific [place] 1.044 H (1.000-1.030) Urine Protein Negative (Negative) Urine Glucose (UA) 3+ H (Negative)
[2021-12-17] MEDS: ENOXAPARIN INJ 60 MG/0.6 ML SYR SQ SCH (20:55)
[2021-12-18] MEDS ORDERED: APIXABAN 5 MG TABLET PO SCH
[2021-12-18 07:37] LABS: Estimated Average Glucose 192 mg/dl; Hemoglobin A1C 8.3 % (4.5-5.6)
[2021-12-18 07:41] LABS: BUN Creatinine Ratio 20.8 (10-20); Calcium 9.2 mg/dl (8.5-10.1); Creatinine Clr Calc Pharmacy 36.4 ml/min; Est GFR (African American) 59.6 ml/min; Est GFR (Non-African American) 51.4 ml/min; Potassium 4.2 mmol/L (3.5-5.1)
[2021-12-18] MEDS: FLUTICASONE/VILANTEROL 200/25MCG 14 PUFFS/INHALER INH SCH (09:14)
[2021-12-18] MEDS: UMECLIDINIUM BROMIDE 62.5MCG/BLISTER 7 PUFFS/INHALER INH SCH (09:14)
[2021-12-18] MEDS: lisinopril 10 MG TAB PO SCH (09:15)
[2021-12-18] MEDS: FLUoxetine HCL 20 MG CAP PO SCH (09:15)
[2021-12-18] MEDS: ENOXAPARIN INJ 60 MG/0.6 ML SYR SQ SCH (09:16)
[2021-12-18] MEDS: carvediloL 6.25 MG TAB PO SCH (09:16)
[2021-12-18] MEDS: MULTIVITAMIN TAB PO SCH (09:17)
[2021-12-18] MEDS: amLODIPine BESYLATE 5 MG TAB PO SCH (09:17)
[2021-12-18] MEDS: INSULIN GLARGINE SOLOSTAR 100 UNITS/ML 3 ML PEN SC SCH (09:18)
--- NOTE | 2021-12-18 09:22 | Pulmonology Progress Note ---
Date of Service December 18, 2021 Assessment & Plan (1) Chronic pulmonary embolism: (2) Chronic deep vein thrombosis (DVT): (3) Shortness of breath: Plan: Chest 12/16/2021 reviewed: No infiltrate Cardiomegaly with enlargement pulmonary artery Patient has had enlarged pulmonary artery when the previous CAT scans --Chronic pulmonary embolism Patient also found to have DVT which seem to be chronic right lower extremity Patient will need to be on anticoagulation I changed the patient's anticoagulation to therapeutic Lovenox --Enlarged pulmonary artery Patient echo does not show any elevated right-sided pressures, right ventricle function is normal She did have Ross procedure in 1997 and that might be the reason why we are having an enlarged pulmonary artery Patient does not show any signs of pulmonary hypertension Patient does seem to have chronic PE but given no elevated right-sided pressures I do not think CTEPH is what we are dealing here with --Asthma On Advair and Spiriva at home I also see budesonide nebulized on top of that I would not recommend budesonide nebulized if the patient is already on Advair and Spiriva Plan: Okay to transition patient to p.o. DOACs Check the patient for oxygen on exertion Case discussed with Dr. Moore No further recommendations. We will sign off. Please call directly with any questions Please note the above document was generated using voice recognition software. It may contain grammatical, syntax or spelling errors.Any formal questions or concerns about the content, text or information contained within the body of this dictation should be directly addressed to the provider for clarification. Admission and Anticipated Discharge Date Admission Date: December 16, 2021 Subjective Patient seen and examined at bedside. No acute distress, noted with symptoms overnight Denies any chest pain, no headache, no nausea, no vomiting Patient says she is feeling much better after coming to the hospital Good appetite No cough, shortness of breath significantly improved Review of Systems Review of Systems: All systems reviewed & are unremarkable except as noted in Subjective Physical Exam Physical Exam: Constitutional: No acute distress HEENT: EOMI, PERRLA Respiratory system: Good air entry bilaterally, no wheeze, no rhonchi, mild crackles bilateral lower lobes CVS: S1-S2 positive, no murmurs or gallops Abdomen: Soft, nontender, nondistended, positive bowel sounds x4 Extremities: +2 pulses bilaterally radialis/ dorsalis pedis, no cyanosis, no e minh Neuro: Awake alert oriented x3 Psych: Normal mood and affect G/U: No [place] Skin: no rashes, warm and dry Lymphatic: no cervical or axillary lymphadenopathy Results & Data Results & Data ([facility]) Vital Signs (Past 12 Hours) Vital Signs Temp Pulse Pulse Resp BP Pulse Ox 12/18/21 07:31 36.8 C 73 18 115/66 96 12/18/21 06:19 69 12/18/21 03:36 36.7 C 71 18 119/64 99 12/18/21 00:50 71 12/17/21 22:43 36.6 C 74 18 121/62 98 Laboratory Results 12/17/21 05:35 12/18/21 06:34 PG Care Time/CCT Total # of Minutes Spent Total Time Spent with Patient: Total time spent is greater than 50% in coordination of care (as documented) at patient's floor/unit and/or counseling patient: Coding [place] [address] Subseq Hosp Care Lvl 2 Patient Type Established Diagnoses Chronic pulmonary embolism I27.82 Chronic deep vein thrombosis (DVT) I82.509 Shortness of breath R06.02
[2021-12-18] MEDS: INSULIN ASPART PER UNIT SC SCH ×2 (09:34→12:27)
--- NOTE | 2021-12-18 13:02 | Hospitalist Progress Note ---
Date of Service December 18, 2021 Assessment & Plan (1) Chronic pulmonary embolism: (2) Chronic deep vein thrombosis (DVT): Plan: Patient is an 81-year-old female who presents with shortness of breath on exertion. Chronic Pulmonary embolism Chronic deep vein thrombosis Less Likely chronic thromboembolic pulmonary hypertension --CTA:There is no evidence of acute pulmonary embolus in the main, lobar, or proximal segmental pulmonary arteries. Evaluation of the segmental and subsegmental branches is degraded by motion artifact. Trace chronic pulmonary embolus is seen within a branch of the right upper lobe pulmonary artery. There is no airspace consolidation or pleural effusion. Cardiomegaly with evidence of pulmonary artery hypertension. --Venous Doppler:Right lower extremity DVT as described above. This is age indeterminate. No left lower extremity DVT. --ECHO: EF 55 to 60%. S/P Ross Procedure. Moderate to severe aortic regurgitation. Aortic stenosis is absent. Mild tricuspid regurgitation. Degree of aortic insufficiency similar to prior echo in 2012. --Needs Hypercoagulable work up as outpatient --Needs 2 step prior to discharge --If patient desaturates on exertion, she will need Right heart Cath, Patient s aturated well on room air --Started on therapeutic Lovenox>> Transition to Apixaban on discharge --Appreciate Pulmonology Input --Discussed with Hematology:OK to transition to Apixaban for management of Chronic PE Asthma: Continue home inhalers Nebs PRN DC Budesonide on discharge Enlarged pulmonary artery Echo did not show any elevated right sided pressures H/O Ross Procedure If patient gets hypoxic, will need right heart catheterization Hypertension: Continue Coreg, amlodipine, lisinopril. DM II Hold home medications Continue ISS, Lantus Updated HbA1C: 8.3 CKD III Cr 1.05 Monitor DVT Px: Lovenox SQ Code Status Full Code Admission and Anticipated Discharge Date Admission Date: December 16, 2021 Subjective Patient is seen and examined at bedside Does well today States ambulated in hallway with PT/OT earlier without any issues Eager to get discharged Denies any chest pain, dyspnea, dizziness, nausea, abdominal pain Review of Systems Review of Systems: All systems reviewed & are unremarkable except as noted in Subjective Physical Exam Physical Exam: Physical Exam: Vitals signs as noted above General Appearance:Thin, frail, elderly, no apparent distress Head: normocephalic, Atraumatic Eyes: normal inspection, EOMI Neck: supple, Trachea midline Respiratory/Chest: Decreased breath sounds, CTA Cardiovascular: S1, S2, + murmur Abdomen/GI:Soft, Non tender, Bowel sounds present Extremities/Musculoskeletal:normal inspection, no edema Neurologic/Psych:AAOX3, grossly no focal neurological deficits Skin: normal color, warm Results & Data Results & Data ([facility]) Vital Signs (Past 12 Hours) Vital Signs Temp Pulse Pulse Resp BP Pulse Ox 12/18/21 11:22 36.8 C 76 18 91/46 L 97 12/18/21 07:31 36.8 C 73 18 115/66 96 12/18/21 06:19 69 12/18/21 03:36 36.7 C 71 18 119/64 99 Laboratory Results BMP 12/18/21 06:34 Sodium 136 Potassium 4.2 Chloride 104 Carbon Dioxide 24 BUN 21 Creatinine 1.01 Glucose 130 H Calcium 9.2
--- NOTE | 2021-12-18 14:16 | Discharge Summary ---
Date of Service December 18, 2021 Admission HPI Per Admitting Provider CHIEF COMPLAINT: Shortness of breath on exertion. HISTORY OF PRESENT ILLNESS: This is an 81-year-old female with past medical history significant type 2 diabetes, hyperlipidemia, asthma, chronic cough, dyspnea on exertion, history of asymptomatic bilateral carotid stenosis, nonrheumatic aortic valve insufficiency, hypertension, irritable bowel syndrome, chronic kidney disease stage III, degenerative disk disease, who presents with shortness of breath on exertion. The patient has shortness of breath with exertion for some time. Last Wednesday when she was talking also she was getting short of breath, that is the reason she went to the PCP's office and advised to come to the hospital and CTA chest done here shows no evidence of acute PE, trace chronic pulmonary emboli seen within the branch of the right upper lobe pulmonary artery. No consolidation or pleural effusion. Cardiomegaly with evidence of pulmonary hypertension. The patient has a chronic cough from her asthma. Denies any headache. No blurred visions, no earache, no runny nose, no sore throat. Appetite is okay. No difficulty swallowing. No chest pain, no nausea, no vomiting, no abdominal pain. Normal bowel and bladder movements. She says if she hurries up, she gets short of breath, but if she walks slowly, she can walk up to a block. Admission Exam Per Admitting Provider PHYSICAL EXAMINATION: GENERAL: The patient is of moderate build, not in acute distress. VITAL SIGNS: Temperature 36.1, pulse 74, respiratory rate 15, blood pressure 133/53, oxygen 96% on room air. HEENT: Pupils equal, round and reactive to light. Oral mucosa moist. NECK: No JVD, no neck masses. CARDIOVASCULAR: S1 and S2 heard. Regular rate and rhythm. No murmur, no gall op. RESPIRATORY SYSTEM: Normal AP diameter. No accessory muscle use. No wheezing, no crackles. ABDOMEN: Soft, bowel sounds present, nontender, no distention. CENTRAL NERVOUS SYSTEM: Cranial nerves II-XII grossly intact, nonfocal. EXTREMITIES: No edema, no erythema. Principal Diagnosis Chronic Pulmonary embolism Chronic deep vein thrombosis Discharge Data Allergies Allergy/AdvReac Type Severity Reaction Status Date / Time furosemide Allergy Mild rash from Verified 12/16/21 20:36 "GENERIC" lasix Penicillins Allergy Unknown Unknown Verified 12/16/21 20:36 sitagliptin Allergy Unknown ANAPHYLAXIS Verified 12/16/21 20:36 Sulfa (Sulfonamide Allergy Unknown PATEINT Verified 12/16/21 20:36 Antibiotics) HAS TOLERATED LASIX empagliflozin Allergy Blister Unverified 12/16/21 20:36 [From Jardiance] codeine AdvReac Intermediate Confusion Verified 12/16/21 20:36 prednisone AdvReac Intermediate delerium Verified 12/16/21 20:36 [id number] Reductase AdvReac Intermediate elevated ck Verified 12/16/21 20:36 Inhibitor [Rjgfppe-Pyf-Zrz Reductase Inhibitor] Consultations 12/16/21 19:40 ED Decision to Admit Stat 12/17/21 08:00 Consult Pulmonology Routine Ordered Studies 12/17/21 13:30 US venous doppler LE BI Routine Hospital Course (1) Chronic pulmonary embolism: (2) Chronic deep vein thrombosis (DVT): Patient is an 81-year-old female who presents with shortness of breath on exertion. Chronic Pulmonary embolism Chronic deep vein thrombosis Less Likely chronic thromboembolic pulmonary hypertension --CTA:There is no evidence of acute pulmonary embolus in the main, lobar, or proximal segmental pulmonary arteries. Evaluation of the segmental and subsegmental branches is degraded by motion artifact. Trace chronic pulmonary embolus is seen within a branch of the right upper lobe pulmonary artery. There is no airspace consolidation or pleural effusion. Cardiomegaly with evidence of pulmonary artery hypertension. --Venous Doppler:Right lower extremity DVT as described above. This is age indeterminate. No left lower extremity DVT. --ECHO: EF 55 to 60%. S/P Ross Procedure. Moderate to severe aortic regurgitation. Aortic stenosis is absent. Mild tricuspid regurgitation. Degree of aortic insufficiency similar to prior echo in 2012. --Needs Hypercoagulable work up as outpatient --Needs 2 step prior to discharge --If patient desaturates on exertion, she will need Right heart Cath, Patient saturated well on room air --Started on therapeutic Lovenox>> Transition to Apixaban on discharge --Appreciate Pulmonology Input --Discussed with Hematology:OK to transition to Apixaban for management of Chronic PE Asthma: Continue home inhalers Nebs PRN DC Budesonide on discharge Enlarged pulmonary artery Echo did not show any elevated right sided pressures H/O Ross Procedure If patient gets hypoxic, will need right heart catheterization Hypertension: Continue Coreg, amlodipine, lisinopril. DM II Hold home medications Continue ISS, Lantus Updated HbA1C: 8.3 CKD III Cr 1.05 Monitor DVT Px: Veronicanox SQ Code Status Full Code Total Time Total Time Spent Total Time Spent (In Minutes): 45 minutes Discharge Plan Discharge Items Patient Disposition: Home - Self-Care Reason For Visit: SOB Discharge Diagnosis: Chronic Pulmonary embolism Chronic deep vein thrombosis Activity: Per Instructions section Exercise/Sports: Gradually increase as tolerated Non-emergency contact: Primary Care Provider Call non-emergency contact if: you have any medication questions, your symptoms worsen, your pain is concerning for you and you have a fever Follow-up/Referrals: Letitia Nam, [Primary Care Provider] - (Date & Time 12/23/2021 11:00 AM Provider MIGEL Otero Department [facility] ) Diet: Carb Consistent or DM2 and Heart Healthy Addtl Attending Provider Instructions: Follow up with your Primary Care physician on 12/23/2021 11:00 AM as scheduled --Get Blood Test (Hypercoagulable work) up as outpatient for further evaluation of the reason for blood clots --Start taking Apixaban (Eliquis) 10mg twice a day for 7 days and then 5mg twice a day for blood clots. --Your Amlodipine is discontinued and your Lisinopril dose is decreased from 10mg twice a day to 5mg twice a day as your blood pressure is relatively low. Further adjustment of your medications for blood pressure to be addressed by your Primary Care Physician. --Stop using Budesonide Inhaler as recommended by your Shared Services Manager. Seek immediate medical attention if your symptoms reoccur or worsen Please take all medications as instructed on discharge list below. Please call if you have any questions or problems. You can reach a [facility] hospitalist on duty at [facility] 24 hours a day by calling [phone] Pending Studies at Discharge: No Stand-Alone Forms: My [facility] [employer], Smoking Cessation Medications and DC Order Prescriptions: New Eliquis 5 mg Tablet 5 mg PO UD Qty: 74 RF: 1 Continued multivitamin Tablet 2 tab PO QAM RF: 0 carvedilol 6.25 mg tablet 3.125 mg PO QPM RF: 0 carvedilol 6.25 mg tablet 6.25 mg PO QAM RF: 0 trazodone 50 mg tablet 50 mg PO HS PRN (Reason: Insomnia) RF: 0 ethacrynic acid 25 mg tablet 25 mg PO 4XWK RF: 0 albuterol sulfate 90 mcg/actuation HFA aerosol inhaler 2 puff inhalation Q4 PRN (Reason: Wheezing) RF: 0 repaglinide 1 mg tablet 1 mg PO TID RF: 0 calcium carbonate-vitamin D3 [Calcium 600 + D(3)] 600 mg(1,500mg) -400 unit Tablet 1 tab PO 2XWK RF: 0 fluoxetine 40 mg capsule 40 mg PO DAILY RF: 0 ipratropium-albuterol 0.5 mg-3 mg(2.5 mg base)/3 mL solution for nebulization 3 ml INHALATION Q6 PRN (Reason: Shortness Of Breath Or Wheezing) RF: 0 clindamycin HCl 150 mg Capsule 600 mg PO Q6H PRN (Reason: .dental procedures) RF: 0 acetaminophen [Tylenol Arthritis] 650 mg Tablet Extended Release 1,300 mg PO QAM RF: 0 budesonide 0.5 mg/2 mL suspension for nebulization 0.5 mg inhalation BID RF: 0 metformin 500 mg tablet extended release 24 hr 500 mg PO BID RF: 0 glucosamine-chondroitin [Osteo Bi-Flex] 250-200 mg Tablet 1 tab PO DAILY RF: 0 Advair HFA 230-21 mcg/actuation HFA aerosol inhaler 2 puff INHALATION BID RF: 0 levocetirizine 5 mg tablet 5 mg PO HS RF: 0 diclofenac sodium [Voltaren] 1 % Gel 2 g TOPICAL QID PRN (Reason: Pain) RF: 0 Spiriva Respimat 2.5 mcg/actuation mist 2 puff INHALATION DAILY RF: 0 Jardiance 10 mg tablet 10 mg PO DAILY RF: 0 Changed lisinopril 10 mg Tablet 5 mg PO BID Qty: 0 RF: 0 Discontinued amlodipine 2.5 mg tablet 2.5 mg PO DAILY RF: 0 Discharge Orders: Discharge Order (Routine); Ordered 12/18/21 Ordered By: Duglas Myers/Other Patient Handouts: Managing Type 2 Diabetes Admission Data Admit Date/Time: 12/16/21 20:26 Attending Provider: Duglas Moore Admit Provider: Sunny Almaraz Primary Care Provider: Letitia Nam Other Providers: Sunny Almaraz ; Jasmin Cr
[2021-12-19] MEDS ORDERED: CALCIUM 600MG + VIT D 400 IU TAB PO SCH (09:00)
== END 2021-12-18 15:47 | disposition home or self-care (01) | DRG 176 ==
LOC: ED 14:38 → 2W 20:26 → SUATTDRO 20:26 → 2W 23:30

== ENCOUNTER 2022-02-27 10:47 | Inpatient (IN) ==
--- NOTE | 2022-02-27 11:20 | Emergency Department Note ---
Impression & Plan Acute UTI (urinary tract infection), Weakness, Acute confusion ED Provider Note Name: Mary HARRELL Age: 81 Sex: F Arrives Via: Ambulance Informant: Patient, grandsons, EMS ED Provider: Chilango Varner MD Chief Complaint: Weakness Impression: As per impressions above Medical Decision Making: Pleasant 81-year-old female with history of hyperlipidemia, diabetes, PE, asthma, hypertension arrives with several falls over the last month the last few days increasing weakness. She was seen at PCP clinic initially tried some fluids but continued to get worse and thus sent to the ER for evaluation. Patient is pleasant in no distress but mildly confused and quite hard of hearing. She is afebrile without evidence of sepsis. She had an extensive work-up including CT head which is fortunately negative. The urinalysis is concerning for infection. I suspect the reason for her worsening weakness and falls is probably related to urinary tract infection. In the setting of increasing falls on an anticoagulant, some confusion, some weakness I do think that it would likely be unsafe for her to be home alone and will benefit from some IV antibiotics and monitoring. Hospitalist consulted for further management. Prior Medical Record and Triage/Nursing Notes reviewed by Me Additional history obtained from chart and grandsons Differentials:Infection, dehydration, metabolic abnormality, hypo/hyperglycemia, electrolyte disturbance, anemia, hypoxia, cardiac sources, intracerebral event, toxicologic, neurologic, as well as other pathologies. Vital Signs: reviewed and remarkable for no significant abnormalities Interventions: rocephine 2gm iv, nss bolus Labs:Reviewed and remarkable for mild hyperglycemia, mild trop elevation Imaging:X ray results are stated below per my interpretation: Chest: 1 view: No infiltrate, no effusion, normal cardiac border. ct head no acute findings per radiologist EKG:Per My Interpretation: Indication Weakness: NSR 71 bpm, qtc 456. No Ectopy. No Ischemia. Compared to EKG 01/30/22, no significant changes. Cardiac/Tele Monitoring: Cardiac Monitoring: An Order was placed for continuous cardiac monitoring. The monitor shows a rate of 70 with a normal sinus rhythm. Consults:Dr Esteban Saravia hospitalist Plan: Disposition:Hospitalization. Condition: Fair History of Present Illness:81-year-old female arrives for evaluation of generalized weakness. For the last month patient has had increasing weakness and fatigue. Associated with multiple falls occluding a trip to the ER last m [facility] for a fall. Extensive work-up at that time including CT head and cervical spine was unremarkable. She has had continued worsening. She was seen at her PCP office yesterday and was felt to be dehydrated thus given some fluids. She was seen again today due to continued weakness and was advised to come to the ER for further evaluation. Patient notes she just feels tired. She states she has been eating well and drinking well. She denies any headache, neck pain, chest pain, shortness of breath other than baseline, abdominal pain, nausea, vomiting, urinary symptoms, diarrhea, swelling, rashes nor other symptoms. She denies any recent head injury. She is on blood thinners following PE in the past. She is on nebulizers for chronic lung disease. No new medications prior to arrival. She did not take her morning medications due to everything going on. Any exertion makes weakness worse and rest makes better. ROS: See above HPI for pertinent positives & negatives. A total of 10 systems reviewed and were otherwise negative. Past Medical History:See Below Past Surgical History:See Below Family History:See Below Social History:See Below Home Medications:See Below Allergies:See Below Vitals:Blood Pressure: 151/65, Pulse 75, RR 14, T 36.6C, O2 99% on RA Physical Exam: GENERAL: Patient is elderly appearing and in mild distress. EYES: No scleral icterus, unremarkable pupils. ENT: Mucous membranes dry, no nasal congestion. NECK: No masses appreciated, nomeningismus, trachea is midline. RESPIRATORY: No dyspnea. Clear to auscultation and equal bilaterally. No wheeze, no rhonchi. CARDIOVASCULAR: Regular rate and rhythm.No murmurs, rubs, gallops appreciated. GASTROINTESTINAL: Abdomen soft, non-tender, no peritonitis.Bowel sounds positive.No masses appreciated. BACK: No midline tenderness, no CVA tenderness EXTREMITIES: Normal motion all extremities, no cyanosis, no edema. NEUROLOGIC: Alert and oriented with just mild confuse on discussion, severely hard of hearing, no acute motor or sensory deficits, no focal weakness, cranial nerves grossly intact. SKIN: No rash, no jaundice, no diaphoresis. PSYCH: Appropriate GCS: 15 ED Course: Times/Reassessments: Stable and actually looks little improved with some IV fluids. 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) Surgical History (Updated 02/27/22 @ 14:45 by Ruthie Durant PA-C) History of colonoscopy Hx of total knee arthroplasty Family History Other Cancer Hypertension Social History (Updated 02/27/22 @ 14:46 by Ruthie Durant PA-C) Smoking Status: Never smoker Second Hand Exposure: No; Do You Dip or Chew Tobacco: No; Tobacco Cessation Education Requested by Patient: No Hx Alcohol Use: No Hx Substance Use: No Preferred Language: Arabic Communication Ability: Effective Exceptional Student Education Aide Required: No Beliefs That Will Affect Care: None marital status: / Current Living Situation: Family Current Living Situation Comment: Pts grandson lives with her How many Children do You have: 1 Other Information That Helps Us Care for You: No Feels Safe at Home: Yes Safety Concerns: Feels Safe At This Time Assistive Devices: None Allergies Allergies Allergy/AdvReac Type Severity Reaction Status Date / Time sitagliptin Allergy Severe ANAPHYLAXIS Verified 02/27/22 12:18 empagliflozin Allergy Intermediate Blister Verified 02/27/22 12:18 [From Jardiance] furosemide Allergy Intermediate rash from Verified 02/27/22 12:18 "GENERIC" lasix hydrochlorothiazide Allergy Intermediate Rash Verified 02/27/22 12:18 Sulfa (Sulfonamide Allergy Intermediate PATEINT Verified 02/27/22 12:18 Antibiotics) HAS TOLERATED LASIX metoprolol Allergy Unknown ON MED LIST Verified 02/27/22 12:18 Penicillins Allergy Unknown Unknown Verified 01/30/22 11:31 codeine AdvReac Intermediate Confusion Verified 02/27/22 12:18 fenofibrate AdvReac Intermediate Muscle Pain Verified 02/27/22 12:18 prednisone AdvReac Intermediate delerium Verified 02/27/22 12:18 [id number] Reductase AdvReac Intermediate elevated ck Verified 02/27/22 12:18 Inhibitor [Ecmlstj-Igm-Pia Reductase Inhibitor] Home Meds Home Medications Medication Instructions Recorded Confirmed albuterol sulfate 90 mcg/actuation 2 puff INHALATION BID PRN 04/25/19 02/27/22 aerosol inhaler carvedilol 6.25 mg tablet 3.125 mg PO QPM 04/25/19 02/27/22 carvedilol 6.25 mg tablet 6.25 mg PO QAM 04/25/19 02/27/22 multivitamin 2 tab PO QAM 04/25/19 02/27/22 repaglinide 1 mg tablet 1 mg PO TID 04/25/19 02/27/22 trazodone 50 mg tablet 50 mg PO HS PRN 04/25/19 02/27/22 acetaminophen 650 mg 1,300 mg PO BID 12/16/21 02/27/22 tablet,extended release budesonide 0.5 mg/2 mL suspension 0.5 mg INHALATION BID 12/16/21 02/27/22 for nebulization diclofenac sodium 1 % topical gel 2 g TOPICAL QID PRN 12/16/21 02/27/22 empagliflozin 10 mg tablet 10 mg PO QAM 12/16/21 02/27/22 (Jardiance) fluoxetine 40 mg capsule 40 mg PO QAM 12/16/21 02/27/22 fluticasone propionate 230 2 puff INHALATION BID 12/16/21 02/27/22 mcg-salmeterol 21 mcg/actuation HFA inhaler (Advair HFA) glucosamine-chondroitin 250 mg-200 1 tab PO QAM 12/16/21 02/27/22 mg tablet (Osteo Bi-Flex) ipratropium 0.5 mg-albuterol 3 mg 3 ml INHALATION TID PRN 12/16/21 02/27/22 (2.5 mg base)/3 mL nebulization soln levocetirizine 5 mg tablet 5 mg PO HS 12/16/21 02/27/22 metformin 500 mg tablet,extended 500 mg PO BID 12/16/21 02/27/22 release 24 hr tiotropium bromide 2.5 2 puff INHALATION QAM 12/16/21 02/27/22 mcg/actuation mist for inhalation (Spiriva Respimat) apixaban 5 mg tablet (Eliquis) 5 mg PO BID 01/30/22 02/27/22 aspirin 81 mg tablet,delayed 81 mg PO QAM 01/30/22 02/27/22 release ethacrynic acid 25 mg tablet 25 mg PO QAM 01/30/22 02/27/22 montelukast 10 mg tablet 10 mg PO QAM 01/30/22 02/27/22 albuterol sulfate 2.5 mg INHALATION QID PRN 02/27/22 02/27/22 gabapentin 100 mg capsule 100 mg PO BID 02/27/22 02/27/22 Previous Rx's Medication Instructions Recorded lisinopril 10 mg tablet 5 mg PO BID #0 tab 12/18/21 Results & Data (ED) Vital Signs Vital Signs - 24 hr 02/27/22 11:03 Temperature 36.6 C Temperature Source Oral Pulse Rate 75 Respiratory Rate 14 Respiratory Depth Normal Blood Pressure 151/65 H Blood Pressure Mean 93 Pulse Oximetry 99 Oxygen Delivery Method Room Air Sepsis Recent Fever Within 48 Hours No Sepsis New/Unexplained Change in Mental Status N/A Sepsis Action Taken by Nursing No Action Required Laboratory Data Result diagrams: 02/28/22 05:55 02/28/22 05:55 Lab Results 02/27/22 02/27/22 02/27/22 Range/Units 12:06 12:23 12:23 WBC 8.57 (4.8-10.8) K/uL RBC 4.06 L (4.2-5.4) M/uL Hgb 11.3 L (12.0-16.0) g/dL Hct 35.4 L (37-47) % MCV 87.2 (80-100) fL MCH 27.8 (25-34) pg MCHC 31.9 L (32-36) g/dL RDW Std Deviation 46.3 (36.4-46.3) fL RDW Coeff of Miguelangel 14.6 H (11.5-14.5) % Plt Count 284 (130-400) K/uL MPV 8.6 (7.4-10.4) fL Immature Gran % (Auto) 0.6 % Neut % (Auto) 85.2 % Lymph % (Auto) 7.0 % [place] % (Auto) 6.4 % Eos % (Auto) 0.4 % Baso % (Auto) 0.4 % Neut # (Auto) 7.31 H (1.4-6.5) K/uL Lymph # (Auto) 0.60 L (1.2-3.4) K/uL [place] # (Auto) 0.55 (0.11-0.59) K/uL Eos # (Auto) 0.03 (0-0.5) K/uL Baso # (Auto) 0.03 (0-0.2) K/uL Immature Gran # (Auto) 0.05 H (0.00-0.02) K/uL Sodium 132 L (136-145) mmol/L Potassium 4.6 (3.5-5.1) mmol/L Chloride 100 (98-107) mmol/L Carbon Dioxide 23 (21-32) mmol/L Anion Gap 9 (3-11) BUN 21 (6-23) mg/dl Creatinine 1.09 (0.6-1.2) mg/dl Est Cr Clr Drug Dosing Not Reportable Est GFR ( Amer) 54.4 ml/min Est GFR (Non-Af Amer) 46.9 ml/min BUN/Creatinine Ratio 19.3 (10-20) Glucose 171 H (70-99(Fasting)) mg/dl Calcium 9.2 (8.5-10.1) mg/dl Magnesium 2.0 (1.7-2.4) mg/dl Total Bilirubin 0.7 (0.2-1.0) mg/dl Direct Bilirubin 0.1 (0-0.2) mg/dl AST 73 H (13-39) U/L ALT 42 (7-52) U/L Alkaline Phosphatase 58 (34-104) U/L Troponin I High Sens 16.8 H (0-14) pg/ml Total Protein 6.5 (6.0-8.3) gm/dl Albumin 3.9 (3.4-5.0) gm/dl Procalcitonin (0-0.5) ng/ml Urine Color Urine Appearance (Clear) Urine pH (4.5-7.5) Ur Specific [place] (1.000-1.030) Urine Protein (Negative) Urine Glucose (UA) (Negative) Urine Ketones (Negative) Urine Blood (Negative) Urine Nitrite (Negative) Urine Bilirubin (Negative) Urine Urobilinogen (Negative) Ur Leukocyte Esterase (Negative) Urine WBC (Auto) (0-5) /hpf Urine RBC (Auto) (0-4) /hpf U Hyaline Cast (Auto) (0-5) /lpf U Epithel Cells (Auto) (0-5) /lpf Urine Bacteria (Auto) (Negative) Ur Renal Epithelial Cell (0-5) /lpf SARS-CoV-2, RNA, NAAT NEGATIVE (NEGATIVE) 02/27/22 02/27/22 Range/Units 12:23 12:32 WBC (4.8-10.8) K/uL RBC (4.2-5.4) M/uL Hgb (12.0-16.0) g/dL Hct (37-47) % MCV (80-100) fL MCH (25-34) pg MCHC (32-36) g/dL RDW Std Deviation (36.4-46.3) fL RDW Coeff of Miguelangel (11.5-14.5) % Plt Count (130-400) K/uL MPV (7.4-10.4) fL Immature Gran % (Auto) % Neut % (Auto) % Lymph % (Auto) % [place] % (Auto) % Eos % (Auto) % Baso % (Auto) % Neut # (Auto) (1.4-6.5) K/uL Lymph # (Auto) (1.2-3.4) K/uL [place] # (Auto) (0.11-0.59) K/uL Eos # (Auto) (0-0.5) K/uL Baso # (Auto) (0-0.2) K/uL Immature Gran # (Auto) (0.00-0.02) K/uL Sodium (136-145) mmol/L Potassium (3.5-5.1) mmol/L Chloride (98-107) mmol/L Carbon Dioxide (21-32) mmol/L Anion Gap (3-11) BUN (6-23) mg/dl Creatinine (0.6-1.2) mg/dl Est Cr Clr Drug Dosing Est GFR ( Amer) ml/min Est GFR (Non-Af Amer) ml/min BUN/Creatinine Ratio (10-20) Glucose (70-99(Fasting)) mg/dl Calcium (8.5-10.1) mg/dl Magnesium (1.7-2.4) mg/dl Total Bilirubin (0.2-1.0) mg/dl Direct Bilirubin (0-0.2) mg/dl AST (13-39) U/L ALT (7-52) U/L Alkaline Phosphatase (34-104) U/L Troponin I High Sens (0-14) pg/ml Total Protein (6.0-8.3) gm/dl Albumin (3.4-5.0) gm/dl Procalcitonin 0.07 (0-0.5) ng/ml Urine Color Yellow Urine Appearance Clear (Clear) Urine pH 5.0 (4.5-7.5) Ur Specific [place] 1.031 H (1.000-1.030) Urine Protein 1+ H (Negative) Urine Glucose (UA) 3+ H (Negative) Urine Ketones Trace H (Negative) Urine Blood 2+ H (Negative) Urine Nitrite Negative (Negative) Urine Bilirubin Negative (Negative) Urine Urobilinogen Negative (Negative) Ur Leukocyte Esterase 1+ H (Negative) Urine WBC (Auto) >30 H (0-5) /hpf Urine RBC (Auto) 5-10 H (0-4) /hpf U Hyaline Cast (Auto) 1-5 (0-5) /lpf U Epithel Cells (Auto) >30 H (0-5) /lpf Urine Bacteria (Auto) 3+ H (Negative) Ur Renal Epithelial Cell 0-5 (0-5) /lpf SARS-CoV-2, RNA, NAAT (NEGATIVE) Administered Medications Apixaban (Apixaban 5 Mg Tablet) 5 mg PO BID [facility] Stop: 03/29/22 20:59 Last Admin: 02/28/22 08:54 Dose: 5 mg Documented by: [id number] Admin: 02/27/22 21:59 Dose: 5 mg Documented by: [id number] Aspirin (Aspirin 81 Mg Ectab) [facility] Stop: 03/29/22 16:04 Last Admin: 02/28/22 08:54 Dose: 81 mg Documented by: [id number] Admin: 02/27/22 17:39 Dose: 81 mg Documented by: [id number] Budesonide (Budesonide 0.5 Mg/2 Ml Vial (Pulmicort)) 0.5 mg INH BIDR [facility] Stop: 03/29/22 18:59 Last Admin: 02/28/22 07:00 Dose: 0.5 mg Documented by: [id number] Admin: 02/27/22 19:26 Dose: 0.5 mg Documented by: [id number] Carvedilol (Carvedilol 3.125 Mg Tab) 3.125 mg PO QPM [facility] Stop: 03/29/22 20:59 Last Admin: 02/27/22 22:00 Dose: 3.125 mg Documented by: [id number] Carvedilol (Carvedilol 6.25 Mg Tab) 6.25 mg PO QAM [facility] Stop: 03/30/22 08:59 Last Admin: 02/28/22 08:55 Dose: 6.25 mg Documented by: [id number] Cetirizine HCl (Cetirizine Hcl 10 Mg Tablet) 5 mg PO HS [facility] Stop: 03/29/22 20:59 Last Admin: 02/27/22 22:01 Dose: 5 mg Documented by: [id number] Docusate Sodium (Docusate Sodium 100 Mg Cap) 100 mg PO BID [facility] Stop: 03/29/22 20:59 Last Admin: 02/28/22 08:55 Dose: 100 mg Documented by: [id number] Admin: 02/27/22 22:04 Dose: 100 mg Documented by: [id number] Ethacrynic Acid (Ethacrynic Acid 25 Mg Tab) 25 mg PO [facility] Stop: 03/30/22 08:59 Last Admin: 02/28/22 08:55 Dose: 25 mg Documented by: [id number] Fluoxetine HCl (Fluoxetine Hcl 20 Mg Cap) [facility] Stop: 03/30/22 08:59 Last Admin: 02/28/22 08:54 Dose: 40 mg Documented by: [id number] Gabapentin (Gabapentin 100 Mg Cap) 100 mg PO BID [facility] Stop: 03/29/22 20:59 Last Admin: 02/28/22 08:55 Dose: 100 mg Documented by: [id number] Admin: 02/27/22 22:02 Dose: 100 mg Documented by: [id number] Ceftriaxone Sodium 1,000 mg/ (Dextrose) 60 mls @ 100 mls/hr IV Q24H [facility]; Protocol Stop: 03/05/22 12:59 Last Infusion: 02/28/22 13:13 Dose: 0 mls/hr Documented by: [id number] Admin: 02/28/22 12:23 Dose: 100 mls/hr Documented by: [id number] Insulin Aspart (Insulin Aspart Per Unit) 0 units SC ACHS [facility] Stop: 03/29/22 16:29 Last Admin: 02/28/22 12:22 Dose: 4 units Documented by: [id number] Cosigned by: [id number] Admin: 02/28/22 08:55 Dose: Not Given Documented by: [id number] Admin: 02/27/22 22:27 Dose: Not Given Documented by: [id number] Cosigned by: [id number] Admin: 02/27/22 17:38 Dose: Not Given Documented by: [id number] Lisinopril (Lisinopril 5 Mg Tab) 5 mg PO BID [facility] Stop: 03/29/22 20:59 Last Admin: 02/28/22 08:55 Dose: 5 mg Documented by: [id number] Admin: 02/27/22 22:02 Dose: 5 mg Documented by: [id number] Montelukast Sodium (Montelukast Sodium 10 Mg Tablet) [facility] Stop: 03/30/22 08:59 Last Admin: 02/28/22 08:54 Dose: 10 mg Documented by: [id number] Multivitamins (Multivitamin Tab) 1 [facility] Stop: 03/30/22 08:59 Last Admin: 02/28/22 08:55 Dose: 1 tab Documented by: [id number] Umeclidinium [place] (Umeclidinium [place] 62.5mcg/Blister 7 Puffs/Inhaler) 1 p uffs INH DAILY [facility]; Protocol Stop: 03/30/22 08:59 Last Admin: 02/28/22 08:56 Dose: 1 puffs Documented by: [id number] Discontinued Medications Albuterol (Albut/Ipratrop 3mg/0.5mg Neb 3 Ml Vial) 3 ml NEB NOW STA; Protocol Stop: 02/27/22 14:23 Last Admin: 02/27/22 14:31 Dose: 3 ml Documented by: [id number] Albuterol (Albut/Ipratrop 3mg/0.5mg Neb 3 Ml Vial) 3 ml NEB QIDR [facility]; Protocol Stop: 03/29/22 16:04 Last Admin: 02/28/22 11:06 Dose: 3 ml Documented by: [id number] Admin: 02/28/22 07:00 Dose: 3 ml Documented by: [id number] Admin: 02/27/22 19:26 Dose: 3 ml Documented by: [id number] Admin: 02/27/22 17:20 Dose: Not Given Documented by: [id number] Apixaban (Apixaban 5 Mg Tablet) 5 mg PO ONE ONE Stop: 02/27/22 14:46 Last Admin: 02/27/22 15:19 Dose: 5 mg Documented by: [id number] Budesonide (Budesonide 0.5 Mg/2 Ml Vial (Pulmicort)) 0.5 mg NEB ONE ONE Stop: 02/27/22 14:27 Last Admin: 02/27/22 16:39 Dose: Not Given Documented by: [id number] Carvedilol (Carvedilol 6.25 Mg Tab) 6.25 mg PO ONE ONE Stop: 02/27/22 14:26 Last Admin: 02/27/22 15:19 Dose: 6.25 mg Documented by: [id number] Sodium Chloride (Nss) 500 mls @ 999 mls/hr IV .Q31M ONE Stop: 02/27/22 12:27 Last Infusion: 02/27/22 13:03 Dose: 0 mls/hr Documented by: [id number] Admin: 02/27/22 12:08 Dose: 999 mls/hr Documented by: [id number] Ceftriaxone Sodium (Rocephin) 2,000 mg in 70 mls @ 140 mls/hr IV NOW STA Stop: 02/27/22 13:51 Last Infusion: 02/27/22 13:53 Dose: 0 mls/hr Documented by: [id number] Admin: 02/27/22 13:31 Dose: 140 mls/hr Documented by: [id number] Imaging Data Radiologist's Impression: Head CT 02/27/22 11:18 CT SCAN OF THE BRAIN WITHOUT IV CONTRAST CLINICAL HISTORY: Fall. Generalized weakness. COMPARISON STUDY: CT of the brain dated 01/31/2020 2P TECHNIQUE: Unenhanced axial CT scan of the brain is performed from the vertex to the skull base. A dose lowering technique was utilized adhering to the principles of ALARA. CT DOSE: 788.63 mGycm FINDINGS: Brain parenchyma: There is age-related involutional change noting mild subcortical and periventricular microangiopathic disease. There is no hemorrhage, mass effect, or evidence of acute territorial ischemia by CT criteria. Vigil-white matter differentiation is preserved. No extra-axial fluid collection is seen. Ventricles, sulci, cisterns: Prominent secondary to involutional change. Intracranial vasculature: There is atherosclerotic calcification of the ca vernous carotid and vertebral arteries. Calvarium: The skeletal structures are osteopenic. No depressed calvarial fracture is identified. Sinuses and mastoids: There is septal opacification of the visualized left maxillary antrum. Mild mucosal thickening is noted within the right maxillary antra and the ethmoid sinuses. There is a small left mastoid effusion. The right mastoid air cells are well pneumatized. Orbits: The bony orbits are grossly intact. There are bilateral ocular lens implants. IMPRESSION: There is no hemorrhage, mass effect, or evidence of acute territorial ischemia by CT criteria. ACT 112: Negative or not required by law. Electronically signed by: Rony Vera M.D. 02/27/2022 12:05 PM Chest X-Ray 02/27/22 11:19 SINGLE VIEW CHEST CLINICAL HISTORY: Fall. Generalized weakness. FINDINGS: An AP, portable, upright chest radiograph is compared to study dated 01/30/2022 and correlated with chest CT dated 12/16/2021. The patient is status post midline sternotomy. The heart is enlarged noting atherosclerotic calcification of the thoracic aorta. The pulmonary vasculature is noncongested. Chronic interstitial thickening is similar to previous. Mild atelectasis is seen at the lung bases. The lungs and pleural spaces are otherwise clear. No pneumothorax is seen. The skeletal structures are osteopenic. The bony thorax is grossly intact. Degenerative change is noted in the shoulders and thoracic spine. Superior subluxation of the humeral heads suggest chronic bilateral rotator cuff injury. IMPRESSION: Cardiomegaly with no acute cardiopulmonary abnormality. ACT 112: Negative or not required by law. Electronically signed by: Rony Vera M.D. 02/27/2022 12:07 PM Discharge Plan Visit Data Chief Complaint: Fall ED Provider: Chilango Varner Discharge Problem: Acute UTI (urinary tract infection), Weakness, Acute confusion Patient Disposition: Admitted As Inpatient Discharge Instructions Interventions: ED Discharge Assessment Last Done: 02/27/22 15:26
[2022-02-27] MEDS ORDERED: SODIUM CHLORIDE 0.9% 500 ML IV ONE (11:57)
--- NOTE | 2022-02-27 12:06 | CT Scan Report ---
CT SCAN OF THE BRAIN WITHOUT IV CONTRAST CLINICAL HISTORY: Fall. Generalized weakness. COMPARISON STUDY: CT of the brain dated 01/31/2020 2P TECHNIQUE: Unenhanced axial CT scan of the brain is performed from the vertex to the skull base. A do se lowering technique was utilized adhering to the principles of ALARA. CT DOSE: 788.63 mGycm FINDINGS: Brain parenchyma: There is age-related involutional change noting mild subcortical and periventricula r microangiopathic disease. There is no hemorrhage, mass effect, or evidence of acute territorial isc hemia by CT criteria. Vigil-white matter differentiation is preserved. No extra-axial fluid collection is seen. Ventricles, sulci, cisterns: Prominent secondary to involutional change. Intracranial vasculature: There is atherosclerotic calcification of the cavernous carotid and vertebr al arteries. Calvarium: The skeletal structures are osteopenic. No depressed calvarial fracture is identified. Sinuses and mastoids: There is septal opacification of the visualized left maxillary antrum. Mild muc osal thickening is noted within the right maxillary antra and the ethmoid sinuses. There is a small l eft mastoid effusion. The right mastoid air cells are well pneumatized. Orbits: The bony orbits are grossly intact. There are bilateral ocular lens implants. IMPRESSION: There is no hemorrhage, mass effect, or evidence of acute territorial ischemia by CT singh lorenz. ACT 112: Negative or not required by law. Electronically signed by: Rony Vera M.D. 02/27/2022 12:05 PM
--- NOTE | 2022-02-27 12:08 | XRay Report ---
SINGLE VIEW CHEST CLINICAL HISTORY: Fall. Generalized weakness. FINDINGS: An AP, portable, upright chest radiograph is compared to study dated 01/30/2022 and correlate d with chest CT dated 12/16/2021. The patient is status post midline sternotomy. The heart is enlarged noting atherosclerotic calcification of the thoracic aorta. The pulmonary vasculature is noncongeste d. Chronic interstitial thickening is similar to previous. Mild atelectasis is seen at the lung bases . The lungs and pleural spaces are otherwise clear. No pneumothorax is seen. The skeletal structures are osteopenic. The bony thorax is grossly intact. Degenerative change is noted in the shoulders and thoracic spine. Superior subluxation of the humeral heads suggest chronic bilateral rotator cuff inju ry. IMPRESSION: Cardiomegaly with no acute cardiopulmonary abnormality. ACT 112: Negative or not required by law. Electronically signed by: Rony Vera M.D. 02/27/2022 12:07 PM
[2022-02-27 12:48] LABS: Appearance Urine Clear (Clear); Bacteria Urine Automated 3+ (Negative); Bilirubin Urine Negative (Negative); Blood Urine 2+ (Negative); Color Urine Yellow; Epithelial Cell Urine Auto >30 /lpf (0-5); Glucose Urine UA 3+ (Negative); Ketones Urine Trace (Negative); Leukocyte Esterase Urine 1+ (Negative); Nitrite Urine Negative (Negative); Protein Urine 1+ (Negative); Specific Gravity Urine 1.031 (1.000-1.030); Urobilinogen Urine Negative (Negative); WBC Urine Automated >30 /hpf (0-5)
[2022-02-27 13:00] LABS: Basophils # (auto) 0.03 K/uL (0-0.2); Basophils % (auto) 0.4 %; Eosinophils # (auto) 0.03 K/uL (0-0.5); Eosinophils % (auto) 0.4 %; Hematocrit (blood only) 35.4 % (37-47); Hemoglobin 11.3 g/dL (12.0-16.0); Immature Granulocytes # (auto) 0.05 K/uL (0.00-0.02); Immature Granulocytes % (auto) 0.6 %; Mean Corpuscular Hemoglobin 27.8 pg (25-34); Mean Corpuscular Hgb Conc 31.9 g/dL (32-36); Mean Corpuscular Volume 87.2 fL (80-100); Mean Platelet Volume 8.6 fL (7.4-10.4); Monocytes # (auto) 0.55 K/uL (0.11-0.59); Monocytes % (auto) 6.4 %; Neutrophils # (auto) 7.31 K/uL (1.4-6.5); Neutrophils % (auto) 85.2 %; Platelet Count 284 K/uL (130-400); RDW Coefficient of Variation 14.6 % (11.5-14.5); RDW Standard Deviation 46.3 fL (36.4-46.3); Red Blood Count 4.06 M/uL (4.2-5.4); White Blood Count 8.57 K/uL (4.8-10.8)
[2022-02-27 13:04] LABS: Alanine Aminotransferase 42 U/L (7-52); Albumin Level 3.9 gm/dl (3.4-5.0); Alkaline Phosphatase 58 U/L (34-104); Anion Gap 9 (3-11); Aspartate Aminotransferase 73 U/L (13-39); BUN Creatinine Ratio 19.3 (10-20); Bilirubin Direct 0.1 mg/dl (0-0.2); Bilirubin,Total 0.7 mg/dl (0.2-1.0); Blood Urea Nitrogen 21 mg/dl (6-23); Calcium 9.2 mg/dl (8.5-10.1); Carbon Dioxide 23 mmol/L (21-32); Chloride 100 mmol/L (98-107); Est GFR (African American) 54.4 ml/min; Est GFR (Non-African American) 46.9 ml/min; Glucose 171 mg/dl (70-99(Fasting)); Potassium 4.6 mmol/L (3.5-5.1); Sodium 132 mmol/L (136-145); Total Protein 6.5 gm/dl (6.0-8.3)
[2022-02-27 13:09] LABS: Troponin I High Sensitivity 16.8 pg/ml (0-14)
[2022-02-27 13:15] LABS: Renal Epithelial Cells Urine 0-5 /lpf (0-5)
[2022-02-27] MEDS ORDERED: cefTRIAXone SODIUM 2,000 MG/70 ML BAG IV STA (13:22)
--- NOTE | 2022-02-27 13:59 | History & Physical Report ---
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 Reports slipped getting out of car today. Denies dizziness, syncope, CP, SOB. In ER vitals stable CT Head: no acute changes. CXR: no acute changes. No significant electrolyte abnormality. In ER given 500 mL NSS Weakness may be secondary to underlying UTI Fall precautions PT/OT eval UTI treatment as below CBC, BMP in am Possible UTI UA: 1+ leuk esterase,> 30 WBC,> 30 epithelial, 3+ bacteria. No leukocytosis Patient denies urinary symptoms, abdominal pain, flank pain Urine culture pending In ER given Rocephin Will continue Rocephin Elevated troponin History Echo 12/17/2021: EF: 55-60%, s/p Ross procedure, moderate to severe aortic regurgitation, no aortic stenosis, mild tricuspid regurgitation Initial high sensitivity troponin: 14. EKG sinus rhythm, T wave inversion septal leads Patient without chest pain or shortness of breath Trend troponin If troponins increasing obtain echo EKG a.m. DM II A1c: 8.6 on 12/03/2021 Hold Jardiance, metformin, Prandin NovoLog sliding scale per protocol HTN Continue carvedilol, lisinopril Chronic PE, chronic RLE DVT Continue Eliquis CKD III Cr: 1.0. Baseline Cr: 1.1 Monitor renal functions, avoid nephrotoxic agents when possible Asthma No signs acute exacerbation Continue home inhalers and nebs, Singulair DVT Prophylaxis On Eliquis DNR/DNI as per discussion with pt Follows with Dr Letitia Nam for routine care Pt was seen and care coordinated with Dr Orellana. 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 Today fell while getting out of car at [facility]. Patient feels that she slipped on wet ground causing her to fall. Denies dizziness, chest pain, shortness of breath prior to fall. She states fell against car then fell onto her buttocks. Denies hitting her head. Denies any pain or known injury. Patient reports yesterday was feeling generalized weakness and went to PCP. There she was given 1 L NSS. She was to return for recheck today. Patient reports participates in water aerobics 2-3 times a week. She states she was able to participate earlier this week. Chronic constipation. Last BM 3 days ago, denies any abdominal pain. She has chronic intermittent cough and chronic SOB, relieved with duonebs at home. Uses 4 times a day at baseline. Feels breathing and cough is at baseline. Denies fever/chills, diaphoresis, N/V/D, NESBITT, dizziness, syncope, vision changes, neck pain, CP, orthopnea, palpitations, sore throat, choking, otalgia, rhinorrhea, abdominal pain, paresthesias, extremity edema, rashes, dysuria, hematuria, urinary frequency, urinary retention. Allergies Allergy/AdvReac Type Severity Reaction Status Date / Time sitagliptin Allergy Severe ANAPHYLAXIS Verified 02/27/22 12:18 empagliflozin Allergy Intermediate Blister Verified 02/27/22 12:18 [From Jardiance] furosemide Allergy Intermediate rash from Verified 02/27/22 12:18 "GENERIC" lasix hydrochlorothiazide Allergy Intermediate Rash Verified 02/27/22 12:18 Sulfa (Sulfonamide Allergy Intermediate PATEINT Verified 02/27/22 12:18 Antibiotics) HAS TOLERATED LASIX metoprolol Allergy Unknown ON MED LIST Verified 02/27/22 12:18 Penicillins Allergy Unknown Unknown Verified 01/30/22 11:31 codeine AdvReac Intermediate Confusion Verified 02/27/22 12:18 fenofibrate AdvReac Intermediate Muscle Pain Verified 02/27/22 12:18 prednisone AdvReac Intermediate delerium Verified 02/27/22 12:18 [id number] Reductase AdvReac Intermediate elevated ck Verified 02/27/22 12:18 Inhibitor [Fmhgbmv-Ibk-All Reductase Inhibitor] Home Medications Medication Instructions Recorded Confirmed Type albuterol sulfate 90 mcg/actuation 2 puff INHALATION BID PRN 04/25/19 02/27/22 History aerosol inhaler carvedilol 6.25 mg tablet 3.125 mg PO QPM 04/25/19 02/27/22 History carvedilol 6.25 mg tablet 6.25 mg PO QAM 04/25/19 02/27/22 History multivitamin 2 tab PO QAM 04/25/19 02/27/22 History repaglinide 1 mg tablet 1 mg PO TID 04/25/19 02/27/22 History trazodone 50 mg tablet 50 mg PO HS PRN 04/25/19 02/27/22 History acetaminophen 650 mg 1,300 mg PO BID 12/16/21 02/27/22 History tablet,extended release budesonide 0.5 mg/2 mL suspension 0.5 mg INHALATION BID 12/16/21 02/27/22 History for nebulization diclofenac sodium 1 % topical gel 2 g TOPICAL QID PRN 12/16/21 02/27/22 History empagliflozin 10 mg tablet 10 mg PO QAM 12/16/21 02/27/22 History (Jardiance) fluoxetine 40 mg capsule 40 mg PO QAM 12/16/21 02/27/22 History fluticasone propionate 230 2 puff INHALATION BID 12/16/21 02/27/22 History mcg-salmeterol 21 mcg/actuation HFA inhaler (Advair HFA) glucosamine-chondroitin 250 mg-200 1 tab PO QAM 12/16/21 02/27/22 History mg tablet (Osteo Bi-Flex) ipratropium 0.5 mg-albuterol 3 mg 3 ml INHALATION TID PRN 12/16/21 02/27/22 History (2.5 mg base)/3 mL nebulization soln levocetirizine 5 mg tablet 5 mg PO HS 12/16/21 02/27/22 History metformin 500 mg tablet,extended 500 mg PO BID 12/16/21 02/27/22 History release 24 hr tiotropium bromide 2.5 2 puff INHALATION QAM 12/16/21 02/27/22 History mcg/actuation mist for inhalation (Spiriva Respimat) lisinopril 10 mg tablet 5 mg PO BID #0 tab 12/18/21 02/27/22 Rx apixaban 5 mg tablet (Eliquis) 5 mg PO BID 01/30/22 02/27/22 History aspirin 81 mg tablet,delayed 81 mg PO QAM 01/30/22 02/27/22 History release ethacrynic acid 25 mg tablet 25 mg PO QAM 01/30/22 02/27/22 History montelukast 10 mg tablet 10 mg PO QAM 01/30/22 02/27/22 History albuterol sulfate 2.5 mg INHALATION QID PRN 02/27/22 02/27/22 History gabapentin 100 mg capsule 100 mg PO BID 02/27/22 02/27/22 History Past Med/Surg History Medical History (Updated 02/27/22 @ 14:45 by Ruthie Durant PA-C) Aortic valve insufficiency Asthma Carotid artery stenosis Chronic deep vein thrombosis (DVT) Chronic pulmonary embolism CKD (chronic kidney disease), stage III Diabetes mellitus, type II HTN (hypertension) Hyperlipidemia Irritable colon Osteoporosis 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) Surgical History (Updated 02/27/22 @ 14:45 by Ruthie Durant PA-C) History of colonoscopy Hx of total knee arthroplasty Family History Other Cancer Hypertension Social History (Updated 02/27/22 @ 14:46 by Ruthie Durant PA-C) Smoking Status: Never smoker Second Hand Exposure: No; Hx Alcohol Use: No Hx Substance Use: No Preferred Language: Japanese Communication Ability: Effective Senior Policy Analyst Required: No Beliefs That Will Affect Care: None marital status: / Current Living Situation: Alone How many Children do You have: 1 Feels Safe at Home: Yes Assistive Devices: None Review of Systems Review of Systems: All systems reviewed & are unremarkable except as noted in HPI & below Physical Exam Physical Exam: General: no acute distress, WDWN Head: normocephalic, atraumatic Eyes: conjunctiva non-injected, anicteric ENT: +hard of hearing, normal inspection external ears, nose, mucous membranes moist Neck: supple, trachea midline Lungs: clear, no respiratory distress, no wheezing/rhonchi/rales CV: RRR, no pretibial edema Abd: normal BS, soft, non-tender Ext: no cyanosis, no calf tenderness Neuro: A&O x 3, no focal deficits noted, normal affect Skin: warm, dry Results & Data Results & Data ([facility]) Vital Signs (Past 12 Hours) Vital Signs Temp Pulse Resp BP Pulse Ox 02/27/22 11:03 36.6 C 75 14 151/65 H 99 Laboratory Results Short CBC 02/27/22 02/27/22 Range/Units 12:23 12:23 WBC 8.57 (4.8-10.8) K/uL Hgb 11.3 L (12.0-16.0) g/dL Hct 35.4 L (37-47) % Plt Count 284 (130-400) K/uL Sodium 132 L (136-145) mmol/L BMP 02/27/22 12:23 Sodium 132 L Potassium 4.6 Chloride 100 Carbon Dioxide 23 BUN 21 Creatinine 1.09 Glucose 171 H Calcium 9.2 Liver Function 02/27/22 Range/Units 12:23 Total Bilirubin 0.7 (0.2-1.0) mg/dl Direct Bilirubin 0.1 (0-0.2) mg/dl AST 73 H (13-39) U/L ALT 42 (7-52) U/L Alkaline Phosphatase 58 (34-104) U/L Albumin 3.9 (3.4-5.0) gm/dl Urine 02/27/22 Range/Units 12:32 Urine Color Yellow Urine Appearance Clear (Clear) Urine pH 5.0 (4.5-7.5) Ur Specific [place] 1.031 H (1.000-1.030) Urine Protein 1+ H (Negative) Urine Glucose (UA) 3+ H (Negative) Diagnostic Findings Head CT 02/27/22 11:18 CT SCAN OF THE BRAIN WITHOUT IV CONTRAST CLINICAL HISTORY: Fall. Generalized weakness. COMPARISON STUDY: CT of the brain dated 01/31/2020 2P TECHNIQUE: Unenhanced axial CT scan of the brain is performed from the vertex to the skull base. A dose lowering technique was utilized adhering to the principles of ALARA. CT DOSE: 788.63 mGycm FINDINGS: Brain parenchyma: There is age-related involutional change noting mild subcortical and periventricular microangiopathic disease. There is no hemorrhage, mass effect, or evidence of acute territorial ischemia by CT criteria. Vigil-white matter differentiation is preserved. No extra-axial fluid collection is seen. Ventricles, sulci, cisterns: Prominent secondary to involutional change. Intracranial vasculature: There is atherosclerotic calcification of the cavernous carotid and vertebral arteries. Calvarium: The skeletal structures are osteopenic. No depressed calvarial fra cture is identified. Sinuses and mastoids: There is septal opacification of the visualized left maxillary antrum. Mild mucosal thickening is noted within the right maxillary antra and the ethmoid sinuses. There is a small left mastoid effusion. The right mastoid air cells are well pneumatized. Orbits: The bony orbits are grossly intact. There are bilateral ocular lens implants. IMPRESSION: There is no hemorrhage, mass effect, or evidence of acute territorial ischemia by CT criteria. ACT 112: Negative or not required by law. Electronically signed by: Rony Vera M.D. 02/27/2022 12:05 PM Chest X-Ray 02/27/22 11:19 SINGLE VIEW CHEST CLINICAL HISTORY: Fall. Generalized weakness. FINDINGS: An AP, portable, upright chest radiograph is compared to study dated 01/30/2022 and correlated with chest CT dated 12/16/2021. The patient is status post midline sternotomy. The heart is enlarged noting atherosclerotic calcification of the thoracic aorta. The pulmonary vasculature is noncongested. Chronic interstitial thickening is similar to previous. Mild atelectasis is seen at the lung bases. The lungs and pleural spaces are otherwise clear. No p neumothorax is seen. The skeletal structures are osteopenic. The bony thorax is grossly intact. Degenerative change is noted in the shoulders and thoracic spine. Superior subluxation of the humeral heads suggest chronic bilateral rotator cuff injury. IMPRESSION: Cardiomegaly with no acute cardiopulmonary abnormality. ACT 112: Negative or not required by law. Electronically signed by: Rony Vera M.D. 02/27/2022 12:07 PM Supervising Physician Co-Signing Physician Notes 81-year-old lady with PMH of DM 2, HTN, HLD, asthma, CKD stage III, chronic DVT/PE on Eliquis presented to the ED with complaint of weakness x 1 day and fall secondary to slipping while getting out of car. Patient denies any na usea/vomiting/diaphoresis/loss of consciousness/hitting head/postevent confusion around the fall. Labs and imaging reviewed. Continue antibiotic for possible UTI. Troponin minimally elevated, EKG with NSR, trend troponin, if uptrending echo, follow-up EKG in AM. Continue/resume home meds as and when appropriate. PT/OT, CM to assist with DC planning. Upon examination: GENERAL: Alert and oriented x3. NAD, on RA. HEENT: No pallor, no icterus. Pupils equal, round and reactive to light. Oral mucosa moist. NECK: No JVD, no neck masses. HEART: S1 and S2 heard. Regular rate and rhythm. No murmur, no gallop. RESPIRATORY SYSTEM: Normal AP diameter. No accessory muscle use. No wheezing, no crackles. increased breath sounds all over. ABDOMEN: Soft, bowel sounds present, nontender, no distention. CENTRAL NERVOUS SYSTEM: No facial droop. Speech is clear. Obeys simple commands. Moves extremities. EXTREMITIES: No edema, no erythema seen. I have seen and examined the patient and have discussed the case with the provider above. I agree with the assessment and plan as stated.
[2022-02-27] MEDS ORDERED: ALBUT/IPRATROP 3MG/0.5MG NEB 3 ML VIAL NEB STA (14:22)
[2022-02-27] MEDS ORDERED: carvediloL 6.25 MG TAB PO ONE (14:25)
[2022-02-27] MEDS ORDERED: BUDESONIDE 0.5 MG/2 ML VIAL (PULMICORT) NEB ONE (14:26)
[2022-02-27] MEDS ORDERED: APIXABAN 5 MG TABLET PO ONE (14:45)
[2022-02-27] MEDS ORDERED: GLUCAGON FOR INJ 1 MG VIAL SQ PRN (16:05)
[2022-02-27] MEDS ORDERED: POLYETHYLENE (MIRALAX) 17 GM PACK PO PRN (16:05)
[2022-02-27] MEDS ORDERED: ACETAMINOPHEN 325 MG TAB PO PRN (16:05)
[2022-02-27] MEDS ORDERED: GLUCOSE 10 TABS/TUBE PO PRN (16:05)
[2022-02-27] MEDS ORDERED: traZODone HCL 50 MG TAB PO PRN (16:05)
[2022-02-27] MEDS ORDERED: DICLOFENAC SOD 1% GEL 100 GM TUBE EXT PRN (16:05)
[2022-02-27] MEDS ORDERED: DEXTROSE 50% 50 ML SYRINGE IV PRN (16:05)
[2022-02-27] MEDS ORDERED: CARBOHYDRATES FOR HYPOGLYCEMIA PO PRN (16:05)
[2022-02-27] MEDS ORDERED: ONDANSETRON INJ 2 MG/ML 2 ML VIAL IV PRN (16:05)
[2022-02-27] MEDS ORDERED: GLUCOSE 40% GEL 15 GM TUBE PO PRN (16:05)
[2022-02-27] MEDS: ALBUT/IPRATROP 3MG/0.5MG NEB 3 ML VIAL NEB SCH ×2 (17:20→19:26)
[2022-02-27] MEDS: INSULIN ASPART PER UNIT SC SCH ×2 (17:38→22:27)
[2022-02-27] MEDS: ASPIRIN 81 MG ECTAB PO SCH (17:39)
[2022-02-27] MEDS: BUDESONIDE 0.5 MG/2 ML VIAL (PULMICORT) INH SCH (19:26)
[2022-02-27] MEDS: APIXABAN 5 MG TABLET PO SCH (21:59)
[2022-02-27] MEDS: carvediloL 3.125 MG TAB PO SCH (22:00)
[2022-02-27] MEDS: CETIRIZINE HCL 10 MG TABLET PO SCH (22:01)
[2022-02-27] MEDS: GABAPENTIN 100 MG CAP PO SCH (22:02)
[2022-02-27] MEDS: lisinopril 5 MG TAB PO SCH (22:02)
[2022-02-27] MEDS: DOCUSATE SODIUM 100 MG CAP PO SCH (22:04)
[2022-02-28 06:14] LABS: Hematocrit (blood only) 28.9 % (37-47); Hemoglobin 9.5 g/dL (12.0-16.0); Mean Corpuscular Hgb Conc 32.9 g/dL (32-36); Mean Corpuscular Volume 88.1 fL (80-100); Mean Platelet Volume 8.1 fL (7.4-10.4); Platelet Count 223 K/uL (130-400); RDW Coefficient of Variation 14.4 % (11.5-14.5); RDW Standard Deviation 46.8 fL (36.4-46.3); Red Blood Count 3.28 M/uL (4.2-5.4); White Blood Count 7.12 K/uL (4.8-10.8)
[2022-02-28 06:34] LABS: Anion Gap 10 (3-11); BUN Creatinine Ratio 27.1 (10-20); Blood Urea Nitrogen 26 mg/dl (6-23); Calcium 8.5 mg/dl (8.5-10.1); Carbon Dioxide 21 mmol/L (21-32); Chloride 101 mmol/L (98-107); Est GFR (African American) 63.4 ml/min; Est GFR (Non-African American) 54.7 ml/min; Glucose 110 mg/dl (70-99(Fasting)); Potassium 4.2 mmol/L (3.5-5.1); Sodium 132 mmol/L (136-145)
[2022-02-28] MEDS: BUDESONIDE 0.5 MG/2 ML VIAL (PULMICORT) INH SCH ×2 (07:00→20:10)
[2022-02-28] MEDS: ALBUT/IPRATROP 3MG/0.5MG NEB 3 ML VIAL NEB SCH ×2 (07:00→11:06)
--- NOTE | 2022-02-28 07:50 | Electrocardiogram Report ---
Test Reason : Blood Pressure : / mmHG Vent. Rate : 071 BPM Atrial Rate : 071 BPM P-R Int : 148 ms QRS Dur : 096 ms QT Int : 420 ms P-R-T Axes : 000 051 078 degrees QTc Int : 456 ms Normal sinus rhythm Septal infarct (cited on or before 30-JAN-2022) Abnormal ECG When compared with ECG of 30-JAN-2022 10:12, No significant change was found Confirmed by Berlin Florez ([id number]) on 02/28/2022 7:50:24 AM Referred By: REFERRED SELF Confirmed By:Berlin Florez
[2022-02-28] MEDS: APIXABAN 5 MG TABLET PO SCH ×2 (08:54→20:12)
[2022-02-28] MEDS: ASPIRIN 81 MG ECTAB PO SCH (08:54)
[2022-02-28] MEDS: FLUoxetine HCL 20 MG CAP PO SCH (08:54)
[2022-02-28] MEDS: MONTELUKAST SODIUM 10 MG TABLET PO SCH (08:54)
[2022-02-28] MEDS: INSULIN ASPART PER UNIT SC SCH ×4 (08:55→21:35)
[2022-02-28] MEDS: MULTIVITAMIN TAB PO SCH (08:55)
[2022-02-28] MEDS: lisinopril 5 MG TAB PO SCH ×2 (08:55→20:12)
[2022-02-28] MEDS: DOCUSATE SODIUM 100 MG CAP PO SCH ×2 (08:55→20:11)
[2022-02-28] MEDS: GABAPENTIN 100 MG CAP PO SCH ×2 (08:55→20:12)
[2022-02-28] MEDS: carvediloL 6.25 MG TAB PO SCH (08:55)
[2022-02-28] MEDS: UMECLIDINIUM BROMIDE 62.5MCG/BLISTER 7 PUFFS/INHALER INH SCH (08:56)
[2022-02-28] MEDS ORDERED: ETHACRYNIC ACID 25 MG TAB PO SCH (09:00)
--- NOTE | 2022-02-28 12:12 | Hospitalist Progress Note ---
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 She had recently been seen for fever, SOB and poor appetite at local PCP clinic. She fell 2/2 weakness and was hydrated wtih 1 bag NSS in the office. CXR was clear, CT PE was negative with some incidental pulmonary nodules, labwork revealed anemia with some iron deficiency. In the ER CT Head: no acute changes. CXR: no acute changes. No significant electrolyte abnormality. In ER given 500 mL NSS Weakness/fever may be secondary to underlying UTI Fall precautions PT/OT eval UTI treatment as below Possible UTI UA: 1+ leuk esterase,> 30 WBC,> 30 epithelial, 3+ bacteria. No leukocytosis Patient denies urinary symptoms, abdominal pain, flank pain Urine culture pending In ER given Rocephin Will continue Rocephin Elevated troponin History Echo 12/17/2021: EF: 55-60%, s/p Ross procedure, moderate to severe aortic regurgitation, no aortic stenosis, mild tricuspid regurgitation Initial high sensitivity troponin: 14. EKG sinus rhythm, T wave inversion septal leads Patient without chest pain or shortness of breath Less likely related to ACS with trop trend decreased and now negative DM II A1c: 8.6 on 12/03/2021 Hold Jardiance, metformin, Prandin at inpatient goal, cont NovoLog sliding scale per protocol HTN Continue carvedilol, lisinopril Hyponatremia Na 132 yesterday and again 132 today She is eating and tolerating PO at this point May have been related to feeling poorly this week (reports no appetite to PCP earlier this week per outpatient notes) Held ethacrynic acid although she did receive that this morning. Cont to monitor. Anemia There was a drop in H/H this morning from 11.3/35.4-->9.5/28.9 Outpatient record review reveals iron deficiency, so will start iron supplementation now and have her f/u with outpatient PCP to continue investigation/monitoring into cause of this. Repeat CBC in am. No overt bleeding is present. Cont apixaban for now. Chronic PE, chronic RLE DVT Continue Eliquis CKD III Cr: 1.0. Baseline Cr: 1.1 Monitor renal functions, avoid nephrotoxic agents when possible Asthma No signs acute exacerbation Continue home inhalers and nebs, Singulair DVT Prophylaxis: apixaban DNR/DNI Dispo- transfer off telemetry. Denise Rosales DO [facility] Hospitalist Admission and Anticipated Discharge Date Admission Date: February 27, 2022 Subjective 81 yo F presented with weakness and after recent fall during an outpatient medical visit. She is still weak today, unable to sit up on her own She does report increased urnary urgency wtihout dysuria and she doesn't know for how long this has been going on. UA was positive on admisison and she is on Rocephin pending culture denies chest pain reports increased SOB since Wednesday of this week. Afebrile feels better with nebulizer treatments. Review of Systems Review of Systems: All systems were reviewed and negative except as indicated in subjective above. Physical Exam Physical Exam: CONSTITUTIONAL: WNWD, vitals as above, generally well- appearing, NAD EYES: normal conjunctivae, no scleral icterus ENT: external ear and nose normal, NECK: trachea midline, RESPIRATORY: clear to auscultation bilaterally, no crackles, rales or wheezes, normal respiratory effort CARDIOVASCULAR: regular rate and rhythm, S1 and 2 heard without murmurs, gallops or rubs, no JVD, no peripheral edema CHEST: inspection of chest was normal GASTROINTESTINAL: soft, nontender, ND, no guarding MUSCULOSKELETAL: strength 5/5 throughout however, generally weak and unable to sit up independently, head is normocephalic and atraumatic, SKIN: warm and dry, NEUROLOGIC: CN 2-12 grossly intact, no sensory deficit, normal cognition, some dysarthria/hoarseness, no tremor, no gross focal deficits. PSYCHIATRIC: alert cooperative and oriented to person, place and time. Results & Data Results & Data ([facility]) Vital Signs (Past 12 Hours) Vital Signs Temp Pulse Pulse Resp BP BP Pulse Ox 02/28/22 11:56 70 02/28/22 11:06 75 16 95 02/28/22 11:00 36.5 C 75 18 113/53 L 99 02/28/22 07:22 36.6 C 71 18 121/55 L 96 02/28/22 07:01 75 18 96 02/28/22 03:07 37.1 C 68 18 124/50 L 97 02/28/22 00:09 36.6 C 73 18 109/48 L 95 Laboratory Results Short CBC 02/27/22 02/28/22 Range/Units 12:23 05:55 WBC 8.57 7.12 (4.8-10.8) K/uL Hgb 11.3 L 9.5 L (12.0-16.0) g/dL Hct 35.4 L 28.9 L (37-47) % Plt Count 284 223 (130-400) K/uL BMP 02/27/22 02/28/22 12:23 05:55 Sodium 132 L 132 L Potassium 4.6 4.2 Chloride 100 101 Carbon Dioxide 23 21 BUN 21 26 H Creatinine 1.09 0.96 Glucose 171 H 110 H Calcium 9.2 8.5 Liver Function 02/27/22 Range/Units 12:23 Total Bilirubin 0.7 (0.2-1.0) mg/dl Direct Bilirubin 0.1 (0-0.2) mg/dl AST 73 H (13-39) U/L ALT 42 (7-52) U/L Alkaline Phosphatase 58 (34-104) U/L Albumin 3.9 (3.4-5.0) gm/dl Urine 02/27/22 Range/Units 12:32 Urine Color Yellow Urine Appearance Clear (Clear) Urine pH 5.0 (4.5-7.5) Ur Specific [place] 1.031 H (1.000-1.030) Urine Protein 1+ H (Negative) Urine Glucose (UA) 3+ H (Negative) Medications Administered Current Inpatient Medications Acetaminophen (Acetaminophen 325 Mg Tab) 650 mg PO Q4H PRN PRN Reason: Pain or Fever Stop: 03/29/22 16:04 Albuterol (Albut/Ipratrop 3mg/0.5mg Neb 3 Ml Vial) 3 ml NEB QIDR [facility]; Protocol Stop: 03/29/22 16:04 Last Admin: 02/28/22 11:06 Dose: 3 ml Documented by: Apixaban (Apixaban 5 Mg Tablet) 5 mg PO BID [facility] Stop: 03/29/22 20:59 Last Admin: 02/28/22 08:54 Dose: 5 mg Documented by: Aspirin (Aspirin 81 Mg Ectab) 81 mg PO QAM [facility] Stop: 03/29/22 16:04 Last Admin: 02/28/22 08:54 Dose: 81 mg Documented by: Budesonide (Budesonide 0.5 Mg/2 Ml Vial (Pulmicort)) 0.5 mg INH BIDR [facility] Stop: 03/29/22 18:59 Last Admin: 02/28/22 07:00 Dose: 0.5 mg Documented by: Carvedilol (Carvedilol 3.125 Mg Tab) 3.125 mg PO QPM [facility] Stop: 03/29/22 20:59 Last Admin: 02/27/22 22:00 Dose: 3.125 mg Documented by: Carvedilol (Carvedilol 6.25 Mg Tab) 6.25 mg PO QAM [facility] Stop: 03/30/22 08:59 Last Admin: 02/28/22 08:55 Dose: 6.25 mg Documented by: Cetirizine HCl (Cetirizine Hcl 10 Mg Tablet) 5 mg PO HS [facility] Stop: 03/29/22 20:59 Last Admin: 02/27/22 22:01 Dose: 5 mg Documented by: Dextrose (Dextrose 50% 50 Ml Syringe) 25 - 50 ml IV UD PRN; Protocol PRN Reason: Hypoglycemia Protocol Stop: 03/29/22 16:04 Diclofenac Sodium (Diclofenac Sod 1% Gel 100 Gm Tube) 2 gm EXT QID PRN PRN Reason: Pain Stop: 03/29/22 16:04 Docusate Sodium (Docusate Sodium 100 Mg Cap) 100 mg PO BID [facility] Stop: 03/29/22 20:59 Last Admin: 02/28/22 08:55 Dose: 100 mg Documented by: Ethacrynic Acid (Ethacrynic Acid 25 Mg Tab) 25 mg PO QAM [facility] Stop: 03/30/22 08:59 Last Admin: 02/28/22 08:55 Dose: 25 mg Documented by: Fluoxetine HCl (Fluoxetine Hcl 20 Mg Cap) 40 mg PO QAM [facility] Stop: 03/30/22 08:59 Last Admin: 02/28/22 08:54 Dose: 40 mg Documented by: Gabapentin (Gabapentin 100 Mg Cap) 100 mg PO BID [facility] Stop: 03/29/22 20:59 Last Admin: 02/28/22 08:55 Dose: 100 mg Documented by: Glucagon (Glucagon For Inj 1 Mg Vial) 1 mg SQ UD PRN; Protocol PRN Reason: Hypoglycemia Protocol Stop: 03/29/22 16:04 Glucose (Glucose 10 Tabs/Tube) 4 - 8 tabs PO UD PRN; Protocol PRN Reason: Hypoglycemia Protocol Stop: 03/29/22 16:04 Glucose (Glucose 40% Gel 15 Gm Tube) 15 - 30 gm PO UD PRN; Protocol PRN Reason: Hypoglycemia Protocol Stop: 03/29/22 16:04 Ceftriaxone Sodium 1,000 mg/ (Dextrose) 60 mls @ 100 mls/hr IV Q24H [facility]; Protocol Stop: 03/05/22 12:59 Insulin Aspart (Insulin Aspart Per Unit) 0 units SC ACHS [facility] Stop: 03/29/22 16:29 Last Admin: 02/28/22 08:55 Dose: Not Given Documented by: Lisinopril (Lisinopril 5 Mg Tab) 5 mg PO BID [facility] Stop: 03/29/22 20:59 Last Admin: 02/28/22 08:55 Dose: 5 mg Documented by: Miscellaneous (Carbohydrates For Hypoglycemia ) 15 - 30 gm PO UD PRN PRN Reason: Hypoglycemia Protocol Stop: 03/29/22 16:04 Montelukast Sodium (Montelukast Sodium 10 Mg Tablet) 10 mg PO QAM [facility] Stop: 03/30/22 08:59 Last Admin: 02/28/22 08:54 Dose: 10 mg Documented by: Multivitamins (Multivitamin Tab) 1 tab PO QAM [facility] Stop: 03/30/22 08:59 Last Admin: 02/28/22 08:55 Dose: 1 tab Documented by: Ondansetron HCl (Ondansetron Inj 2 Mg/Ml 2 Ml Vial) 4 mg IV Q6H PRN PRN Reason: Nausea Stop: 03/29/22 16:04 Polyethylene Glycol (Polyethylene (Miralax) 17 Gm Pack) 17 gm PO DAILY PRN PRN Reason: Constipation Stop: 03/29/22 16:04 Trazodone HCl (Trazodone Hcl 50 Mg Tab) 50 mg PO HS PRN PRN Reason: Insomnia Stop: 03/29/22 16:04 Umeclidinium [place] (Umeclidinium [place] 62.5mcg/Blister 7 Puffs/Inhaler) 1 puffs INH DAILY [facility]; Protocol Stop: 03/30/22 08:59 Last Admin: 02/28/22 08:56 Dose: 1 puffs Documented by:
[2022-02-28] MEDS: cefTRIAXone SODIUM 1,000 MG in DEXTROSE 5% 50 ML IV SCH (12:23)
[2022-02-28] MEDS: carvediloL 3.125 MG TAB PO SCH (20:10)
[2022-02-28] MEDS: CETIRIZINE HCL 10 MG TABLET PO SCH (20:11)
[2022-03-01] MEDS: BUDESONIDE 0.5 MG/2 ML VIAL (PULMICORT) INH SCH ×2 (07:08→19:30)
[2022-03-01] MEDS: UMECLIDINIUM BROMIDE 62.5MCG/BLISTER 7 PUFFS/INHALER INH SCH (08:35)
[2022-03-01] MEDS: ASPIRIN 81 MG ECTAB PO SCH (08:35)
[2022-03-01] MEDS: MONTELUKAST SODIUM 10 MG TABLET PO SCH (08:35)
[2022-03-01] MEDS: APIXABAN 5 MG TABLET PO SCH ×2 (08:35→20:32)
[2022-03-01] MEDS: MULTIVITAMIN TAB PO SCH (08:35)
[2022-03-01] MEDS: FLUoxetine HCL 20 MG CAP PO SCH (08:35)
[2022-03-01] MEDS: GABAPENTIN 100 MG CAP PO SCH ×2 (08:35→20:31)
[2022-03-01] MEDS: carvediloL 6.25 MG TAB PO SCH (08:35)
[2022-03-01] MEDS: lisinopril 5 MG TAB PO SCH ×2 (08:35→20:32)
[2022-03-01] MEDS: DOCUSATE SODIUM 100 MG CAP PO SCH ×2 (08:35→20:32)
[2022-03-01] MEDS: INSULIN ASPART PER UNIT SC SCH ×4 (09:14→22:19)
[2022-03-01 09:23] LABS: Hematocrit (blood only) 30.6 % (37-47); Hemoglobin 9.9 g/dL (12.0-16.0); Mean Corpuscular Hemoglobin 28.8 pg (25-34); Mean Corpuscular Hgb Conc 32.4 g/dL (32-36); Mean Platelet Volume 8.5 fL (7.4-10.4); Platelet Count 283 K/uL (130-400); RDW Coefficient of Variation 14.7 % (11.5-14.5); RDW Standard Deviation 47.9 fL (36.4-46.3); Red Blood Count 3.44 M/uL (4.2-5.4); White Blood Count 6.78 K/uL (4.8-10.8)
[2022-03-01 09:41] LABS: Anion Gap 9 (3-11); BUN Creatinine Ratio 24.1 (10-20); Blood Urea Nitrogen 27 mg/dl (6-23); Calcium 8.6 mg/dl (8.5-10.1); Carbon Dioxide 23 mmol/L (21-32); Chloride 97 mmol/L (98-107); Est GFR (African American) 52.6 ml/min; Est GFR (Non-African American) 45.4 ml/min; Glucose 248 mg/dl (70-99(Fasting)); Magnesium 1.9 mg/dl (1.7-2.4); Phosphorus 3.1 mg/dl (2.5-4.9); Potassium 4.1 mmol/L (3.5-5.1); Sodium 129 mmol/L (136-145)
[2022-03-01] MEDS: INSULIN GLARGINE SOLOSTAR 100 UNITS/ML 3 ML PEN SC SCH ×2 (12:31→22:20)
[2022-03-01] MEDS: cefTRIAXone SODIUM 1,000 MG in DEXTROSE 5% 50 ML IV SCH (12:41)
--- NOTE | 2022-03-01 13:17 | Hospitalist Progress Note ---
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 She had recently been seen for fever, SOB and poor appetite at local PCP clinic. She fell 2/2 weakness and was hydrated wtih 1 bag NSS in the office. CXR was clear, CT PE was negative with some incidental pulmonary nodules, labwork revealed anemia with some iron deficiency. In the ER CT Head: no acute changes. CXR: no acute changes. No significant electrolyte abnormality. In ER given 500 mL NSS Weakness/fever may be secondary to underlying UTI Fall precautions PT/OT eval UTI treatment as below Possible UTI started on Rocephin, but this was ruled out. Rocephin stopped today. Elevated troponin History Echo 12/17/2021: EF: 55-60%, s/p Ross procedure, moderate to severe aortic regurgitation, no aortic stenosis, mild tricuspid regurgitation Initial high sensitivity troponin: 14 and then continued to trend into the normal range. EKG sinus rhythm, T wave inversion septal leads Patient without chest pain or shortness of breath Less likely related to ACS with trop trend decreased and now negative DM II A1c: 8.6 on 12/03/2021 Hold Jardiance, metformin, Prandin Glargine added with some hyperglycemia today. cont bolus insulin with carb coverage with novolog. HTN Continue carvedilol, lisinopril Hyponatremia Na 132 and today is 129 with normal baseline. She is not eating well and appears to be dehydrated. SG on UA was high, and patient reports dehydration wtih dry mucous membranes. She is not drinking much per nurse. Cont to hold ethacrynic acid. Urine studies ordered. Start NSS and trend BMP BID. Monitor for clinical response with rehydration. Anemia There was a drop in H/H from 11.3/35.4-->9.5/28.9--> today 08/23. Outpatient record review reveals iron deficiency, so will start iron supplementation now and have her f/u with outpatient PCP to continue investigation/monitoring into cause of this. Repeat CBC in am. No overt bleeding is present. Cont apixaban for now. Chronic PE, chronic RLE DVT Continue Eliquis CKD III Cr: 1.0. Baseline Cr: 1.1 Monitor renal functions, avoid nephrotoxic agents when possible Asthma No signs acute exacerbation Suspect some type of recent viral illness with laryngitis type picture. Continue home inhalers and nebs, Singulair DVT Prophylaxis: apixaban DNR/DNI Dispo- cont hospital stay pending improvement in weakness. Once electrolytes are corrected, if she is still weak, may want to transfer to rehab program. Denise Rosales DO [facility] Hospitalist Admission and Anticipated Discharge Date Admission Date: February 27, 2022 Subjective 81 yo F presented with weakness and after recent fall during an outpatient medical visit. She is still weak today, unable to sit up on her own She now states she has no urinary urgency and no dysuria. UCx is negative Rocephin stopped. Hoarseness is new as of one week ago. It is very difficult for her to remember progress of symptoms over the past week Initially she said she had no fever, then she did, etc. denies chest pain yesterday reported increased SOB since the start of the week, but today, no SOB and no coughing. Na is 129, down from 132 yesterday. Reports poor PO intake throughout the week. She only ate half breakfast and a fruit cup for lunch. She isn't sure if she has lost weight. Review of Systems Review of Systems: All systems were reviewed and negative except as indicated in subjective above. Physical Exam Physical Exam: CONSTITUTIONAL: WNWD, vitals as above, generally appears fatigued, NAD. EYES: normal conjunctivae, no scleral icterus ENT: external ear and nose normal, hoarseness of voice. NECK: trachea midline, RESPIRATORY: clear to auscultation bilaterally, no crackles, rales or wheezes, normal respiratory effort CARDIOVASCULAR: regular rate and rhythm, S1 and 2 heard without murmurs, gallops or rubs, no JVD, no peripheral edema CHEST: inspection of chest was normal GASTROINTESTINAL: soft, nontender, ND, no guarding MUSCULOSKELETAL: strength 5/5 throughout however, generally weak and unable to sit up independently, head is normocephalic and atraumatic, SKIN: warm and dry, NEUROLOGIC: CN 2-12 grossly intact, no sensory deficit, normal cognition, some dysarthria/hoarseness, no tremor, no gross focal deficits. 2+ DTR in brachioradialis bilaterally and knee reflex bilaterally. PSYCHIATRIC: alert cooperative and oriented to person, place and time. Results & Data Results & Data ([facility]) Vital Signs (Past 12 Hours) Vital Signs Temp Pulse Resp BP Pulse Ox 03/01/22 11:30 99 03/01/22 07:25 37.0 C 70 16 124/57 L 96 03/01/22 07:10 72 18 96 Laboratory Results Short CBC 03/01/22 Range/Units 08:46 WBC 6.78 (4.8-10.8) K/uL Hgb 9.9 L (12.0-16.0) g/dL Hct 30.6 L (37-47) % Plt Count 283 (130-400) K/uL BMP 03/01/22 08:46 Sodium 129 L Potassium 4.1 Chloride 97 L Carbon Dioxide 23 BUN 27 H Creatinine 1.12 Glucose 248 H Calcium 8.6 Medications Administered Current Inpatient Medications Acetaminophen (Acetaminophen 325 Mg Tab) 650 mg PO Q4H PRN PRN Reason: Pain or Fever Stop: 03/29/22 16:04 Last Admin: 02/28/22 20:10 Dose: 650 mg Documented by: Albuterol (Albut/Ipratrop 3mg/0.5mg Neb 3 Ml Vial) 3 ml NEB QIDR PRN; Protocol PRN Reason: SOB/wheezing Stop: 03/29/22 16:04 Apixaban (Apixaban 5 Mg Tablet) 5 mg PO BID [facility] Stop: 03/29/22 20:59 Last Admin: 03/01/22 08:35 Dose: 5 mg Documented by: Aspirin (Aspirin 81 Mg Ectab) 81 mg PO QAM TANJA Stop: 03/29/22 16:04 Last Admin: 03/01/22 08:35 Dose: 81 mg Documented by: Budesonide (Budesonide 0.5 Mg/2 Ml Vial (Pulmicort)) 0.5 mg INH BIDR [facility] Stop: 03/29/22 18:59 Last Admin: 03/01/22 07:08 Dose: 0.5 mg Documented by: Carvedilol (Carvedilol 3.125 Mg Tab) 3.125 mg PO QPM TANJA Stop: 03/29/22 20:59 Last Admin: 02/28/22 20:10 Dose: 3.125 mg Documented by: Carvedilol (Carvedilol 6.25 Mg Tab) 6.25 mg PO QAM [facility] Stop: 03/30/22 08:59 Last Admin: 03/01/22 08:35 Dose: 6.25 mg Documented by: Cetirizine HCl (Cetirizine Hcl 10 Mg Tablet) 5 mg PO HS [facility] Stop: 03/29/22 20:59 Last Admin: 02/28/22 20:11 Dose: 5 mg Documented by: Dextrose (Dextrose 50% 50 Ml Syringe) 25 - 50 ml IV UD PRN; Protocol PRN Reason: Hypoglycemia Protocol Stop: 03/29/22 16:04 Diclofenac Sodium (Diclofenac Sod 1% Gel 100 Gm Tube) 2 gm EXT QID PRN PRN Reason: Pain Stop: 03/29/22 16:04 Docusate Sodium (Docusate Sodium 100 Mg Cap) 100 mg PO BID [facility] Stop: 03/29/22 20:59 Last Admin: 03/01/22 08:35 Dose: 100 mg Documented by: Ethacrynic Acid (Ethacrynic Acid 25 Mg Tab) [facility] Stop: 03/30/22 08:59 Last Admin: 02/28/22 08:55 Dose: 25 mg Documented by: Fluoxetine HCl (Fluoxetine Hcl 20 Mg Cap) 40 [facility] Stop: 03/30/22 08:59 Last Admin: 03/01/22 08:35 Dose: 40 mg Documented by: Gabapentin (Gabapentin 100 Mg Cap) 100 mg PO BID [facility] Stop: 03/29/22 20:59 Last Admin: 03/01/22 08:35 Dose: 100 mg Documented by: Glucagon (Glucagon For Inj 1 Mg Vial) 1 mg SQ UD PRN; Protocol PRN Reason: Hypoglycemia Protocol Stop: 03/29/22 16:04 Glucose (Glucose 10 Tabs/Tube) 4 - 8 tabs PO UD PRN; Protocol PRN Reason: Hypoglycemia Protocol Stop: 03/29/22 16:04 Glucose (Glucose 40% Gel 15 Gm Tube) 15 - 30 gm PO UD PRN; Protocol PRN Reason: Hypoglycemia Protocol Stop: 03/29/22 16:04 Ceftriaxone Sodium 1,000 mg/ (Dextrose) 60 mls @ 100 mls/hr IV Q24H TANJA; Protocol Stop: 03/05/22 12:59 Last Admin: 03/01/22 12:41 Dose: 100 mls/hr Documented by: Insulin Aspart (Insulin Aspart Per Unit) 0 units SC ACHS [facility] Stop: 03/29/22 16:29 Last Admin: 03/01/22 12:31 Dose: 4 units Documented by: Insulin Glargine (Insulin Glargine Solostar 100 Units/Ml 3 Ml Pen) 10 units SC BID [facility] Stop: 03/31/22 11:44 Last Admin: 03/01/22 12:31 Dose: 10 units Documented by: Lisinopril (Lisinopril 5 Mg Tab) 5 mg PO BID [facility] Stop: 03/29/22 20:59 Last Admin: 03/01/22 08:35 Dose: 5 mg Documented by: Miscellaneous (Carbohydrates For Hypoglycemia ) 15 - 30 gm PO UD PRN PRN Reason: Hypoglycemia Protocol Stop: 03/29/22 16:04 Montelukast Sodium (Montelukast Sodium 10 Mg Tablet) 10 mg PO QAM [facility] Stop: 03/30/22 08:59 Last Admin: 03/01/22 08:35 Dose: 10 mg Documented by: Multivitamins (Multivitamin Tab) 1 tab PO QAM [facility] Stop: 03/30/22 08:59 Last Admin: 03/01/22 08:35 Dose: 1 tab Documented by: Ondansetron HCl (Ondansetron Inj 2 Mg/Ml 2 Ml Vial) 4 mg IV Q6H PRN PRN Reason: Nausea Stop: 03/29/22 16:04 Polyethylene Glycol (Polyethylene (Miralax) 17 Gm Pack) 17 gm PO DAILY PRN PRN Reason: Constipation Stop: 03/29/22 16:04 Trazodone HCl (Trazodone Hcl 50 Mg Tab) 50 mg PO HS PRN PRN Reason: Insomnia Stop: 03/29/22 16:04 Umeclidinium Sharon (Umeclidinium Sharon 62.5mcg/Blister 7 Puffs/Inhaler) 1 puffs INH DAILY [facility]; Protocol Stop: 03/30/22 08:59 Last Admin: 03/01/22 08:35 Dose: 1 puffs Documented by:
[2022-03-01] MEDS: SODIUM CHLORIDE 0.9% 1000ML 1,000 ML IV SCH (16:36)
[2022-03-01 18:43] LABS: Anion Gap 9 (3-11); Blood Urea Nitrogen 28 mg/dl (6-23); Calcium 8.5 mg/dl (8.5-10.1); Carbon Dioxide 23 mmol/L (21-32); Chloride 97 mmol/L (98-107); Creatine Kinase 628 U/L (26-192); Est GFR (African American) 52.6 ml/min; Est GFR (Non-African American) 45.4 ml/min; Glucose 116 mg/dl (70-99(Fasting)); Potassium 3.9 mmol/L (3.5-5.1); Sodium 129 mmol/L (136-145)
[2022-03-01] MEDS: carvediloL 3.125 MG TAB PO SCH (20:33)
--- NOTE | 2022-03-01 21:20 | Electrocardiogram Report ---
Test Reason : Blood Pressure : / mmHG Vent. Rate : 075 BPM Atrial Rate : 075 BPM P-R Int : 144 ms QRS Dur : 086 ms QT Int : 410 ms P-R-T Axes : 000 037 076 degrees QTc Int : 457 ms Normal sinus rhythm Anterior infarct (cited on or before 30-JAN-2022) Abnormal ECG When compared with ECG of 27-FEB-2022 11:32, Questionable change in initial forces of Anterior leads Confirmed by Alvin Candelario ([id number]) on 03/01/2022 9:20:47 PM Referred By: REFERRED SELF Confirmed By:Alvin Candelario
--- NOTE | 2022-03-01 22:05 | Electrocardiogram Report ---
Test Reason : Blood Pressure : / mmHG Vent. Rate : 069 BPM Atrial Rate : 069 BPM P-R Int : 148 ms QRS Dur : 094 ms QT Int : 428 ms P-R-T Axes : -37 046 066 degrees QTc Int : 458 ms Unusual P axis, possible ectopic atrial rhythm Abnormal ECG When compared with ECG of 27-FEB-2022 17:23, Criteria for Anterior infarct are no longer Present Confirmed by Alvin Candelario ([id number]) on 03/01/2022 10:04:49 PM Referred By: REFERRED SELF Confirmed By:Alvin Candelario
[2022-03-02] MEDS: SODIUM CHLORIDE 0.9% 1000ML 1,000 ML IV SCH (05:13)
[2022-03-02 06:51] LABS: Anion Gap 8 (3-11); BUN Creatinine Ratio 24.2 (10-20); Blood Urea Nitrogen 23 mg/dl (6-23); C Reactive Protein 1.64 mg/dl (0-0.5); Calcium 8.2 mg/dl (8.5-10.1); Carbon Dioxide 22 mmol/L (21-32); Chloride 99 mmol/L (98-107); Est GFR (African American) 64.2 ml/min; Est GFR (Non-African American) 55.4 ml/min; Glucose 132 mg/dl (70-99(Fasting)); Phosphorus 2.7 mg/dl (2.5-4.9); Potassium 3.9 mmol/L (3.5-5.1); Sodium 129 mmol/L (136-145)
[2022-03-02] MEDS: BUDESONIDE 0.5 MG/2 ML VIAL (PULMICORT) INH SCH ×2 (07:00→19:47)
[2022-03-02 07:18] LABS: Folate (Folic Acid) > 22.30 ng/ml (>5.38)
[2022-03-02 07:19] LABS: Vitamin B12 1244 pg/ml (180-914)
[2022-03-02] MEDS: MULTIVITAMIN TAB PO SCH (09:06)
[2022-03-02] MEDS: carvediloL 6.25 MG TAB PO SCH (09:07)
[2022-03-02] MEDS: ASPIRIN 81 MG ECTAB PO SCH (09:07)
[2022-03-02] MEDS: DOCUSATE SODIUM 100 MG CAP PO SCH ×2 (09:07→20:38)
[2022-03-02] MEDS: FLUoxetine HCL 20 MG CAP PO SCH (09:07)
[2022-03-02] MEDS: APIXABAN 5 MG TABLET PO SCH ×2 (09:07→20:36)
[2022-03-02] MEDS: GABAPENTIN 100 MG CAP PO SCH ×2 (09:07→20:38)
[2022-03-02] MEDS: lisinopril 5 MG TAB PO SCH ×2 (09:07→20:41)
[2022-03-02] MEDS: MONTELUKAST SODIUM 10 MG TABLET PO SCH (09:07)
[2022-03-02] MEDS: UMECLIDINIUM BROMIDE 62.5MCG/BLISTER 7 PUFFS/INHALER INH SCH (09:08)
[2022-03-02] MEDS: INSULIN GLARGINE SOLOSTAR 100 UNITS/ML 3 ML PEN SC SCH ×2 (09:08→20:39)
[2022-03-02] MEDS: INSULIN ASPART PER UNIT SC SCH ×4 (09:09→20:46)
--- NOTE | 2022-03-02 10:35 | Nephrology Consultation ---
Date of Consultation March 02, 2022 Assessment & Plan (1) Chronic hyponatremia: new hyponatremia this admission mild with presenting sNa 132, down to 129 48 hrs later and stuck there. suspect low solute diet; also with chronic lung disease +/- element of HFpEF/mild vol OL -stopped NS -CXR -resume ethacrynic acid 25 mg q48hr to resume tomorrow, sooner if issues on XR/repeat lab -FR 1.5L ordered -bmp 1800 ordered -encourage protein intake-protein shakes do not count toward FR (2) Fall: -consider carotid doppler study -consider cardiology c/s given valvular disease History of Present Illness Reason for Consultation: hyponatremia Requesting Physician: Dr Rosales Attending Physician: Denise Rosales, DO History of Present Illness 81 y/o F whom I'm asked to see for hyponatremia was admitted 02/27 for evaluation of generalized weakness x 1 day and a fall, w/ sx attributed at first to possible UTI. Ultimately urine cx negative. Admission sodium 132; down to 129 by 02/27 and there ever since. sOsms 282 on 03/01; uOsms 713, Leoncio 95. 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 No prior hx of hyponatremia on OP labs. on ethacrynic acid as OP rx'd by PCP. On NS at 80 mL hourly since 03/01. TSH wnl. Her focus is getting home. denies sob, generalized weakness, n/v. Tells me she's eating "ok here but I eat better at home." no edema; denies voiding concerns. denies weight loss. Allergies Allergy/AdvReac Type Severity Reaction Status Date / Time sitagliptin Allergy Severe ANAPHYLAXIS Verified 02/27/22 12:18 empagliflozin Allergy Intermediate Blister Verified 02/27/22 12:18 [From Jardiance] furosemide Allergy Intermediate rash from Verified 02/27/22 12:18 "GENERIC" lasix hydrochlorothiazide Allergy Intermediate Rash Verified 02/27/22 12:18 Sulfa (Sulfonamide Allergy Intermediate PATEINT Verified 02/27/22 12:18 Antibiotics) HAS TOLERATED LASIX metoprolol Allergy Unknown ON MED LIST Verified 02/27/22 12:18 Penicillins Allergy Unknown Unknown Verified 01/30/22 11:31 codeine AdvReac Intermediate Confusion Verified 02/27/22 12:18 fenofibrate AdvReac Intermediate Muscle Pain Verified 02/27/22 12:18 prednisone AdvReac Intermediate delerium Verified 02/27/22 12:18 Nyazmoi-[id number]-[id number] Reductase AdvReac Intermediate elevated ck Verified 02/27/22 12:18 Inhibitor [Ererrmc-Dwf-Fys Reductase Inhibitor] Home Medications Medication Instructions Recorded Confirmed Type albuterol sulfate 90 mcg/actuation 2 puff INHALATION BID PRN 04/25/19 02/27/22 History aerosol inhaler carvedilol 6.25 mg tablet 3.125 mg PO QPM 04/25/19 02/27/22 History carvedilol 6.25 mg tablet 6.25 mg PO QAM 04/25/19 02/27/22 History multivitamin 2 tab PO QAM 04/25/19 02/27/22 History repaglinide 1 mg tablet 1 mg PO TID 04/25/19 02/27/22 History trazodone 50 mg tablet 50 mg PO HS PRN 04/25/19 02/27/22 History acetaminophen 650 mg 1,300 mg PO BID 12/16/21 02/27/22 History tablet,extended release budesonide 0.5 mg/2 mL suspension 0.5 mg INHALATION BID 12/16/21 02/27/22 History for nebulization diclofenac sodium 1 % topical gel 2 g TOPICAL QID PRN 12/16/21 02/27/22 History empagliflozin 10 mg tablet 10 mg PO QAM 12/16/21 02/27/22 History (Jardiance) fluoxetine 40 mg capsule 40 mg PO QAM 12/16/21 02/27/22 History fluticasone propionate 230 2 puff INHALATION BID 12/16/21 02/27/22 History mcg-salmeterol 21 mcg/actuation HFA inhaler (Advair HFA) glucosamine-chondroitin 250 mg-200 1 tab PO QAM 12/16/21 02/27/22 History mg tablet (Osteo Bi-Flex) ipratropium 0.5 mg-albuterol 3 mg 3 ml INHALATION TID PRN 12/16/21 02/27/22 His tory (2.5 mg base)/3 mL nebulization soln levocetirizine 5 mg tablet 5 mg PO HS 12/16/21 02/27/22 History metformin 500 mg tablet,extended 500 mg PO BID 12/16/21 02/27/22 History release 24 hr tiotropium bromide 2.5 2 puff INHALATION QAM 12/16/21 02/27/22 History mcg/actuation mist for inhalation (Spiriva Respimat) lisinopril 10 mg tablet 5 mg PO BID #0 tab 12/18/21 02/27/22 Rx apixaban 5 mg tablet (Eliquis) 5 mg PO BID 01/30/22 02/27/22 History aspirin 81 mg tablet,delayed 81 mg PO QAM 01/30/22 02/27/22 History release ethacrynic acid 25 mg tablet 25 mg PO QAM 01/30/22 02/27/22 History montelukast 10 mg tablet 10 mg PO QAM 01/30/22 02/27/22 History albuterol sulfate 2.5 mg INHALATION QID PRN 02/27/22 02/27/22 History gabapentin 100 mg capsule 100 mg PO BID 02/27/22 02/27/22 History Patient History Medical History (Updated 03/02/22 @ 14:08 by Brenna oJe MD, PhD) Aortic valve insufficiency Asthma Carotid artery stenosis Chronic deep vein thrombosis (DVT) Chronic pulmonary embolism CKD (chronic kidney disease), stage III Diabetes mellitus, type II HTN (hypertension) Hyperlipidemia Irritable colon Osteoporosis 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) Surgical History (Updated 02/27/22 @ 14:45 by Ruthie Durant PA-C) History of colonoscopy Hx of total knee arthroplasty Family History Other Cancer Hypertension Social History (Updated 02/27/22 @ 14:46 by Ruthie Durant PA-C) Smoking Status: Never smoker Second Hand Exposure: No; Do You Dip or Chew Tobacco: No; Tobacco Cessation Education Requested by Patient: No Hx Alcohol Use: No Hx Substance Use: No Preferred Language: Frisian Communication Ability: Effective Tray Service Worker Required: No Beliefs That Will Affect Care: None marital status: / Current Living Situation: Family Current Living Situation Comment: Pts grandson lives with her How many Children do You have: 1 Other Information That Helps Us Care for You: No Feels Safe at Home: Yes Safety Concerns: Feels Safe At This Time Assistive Devices: None Review of Systems Review of Systems: All systems reviewed & are unremarkable except as noted in HPI & below Physical Exam Constitutional: well developed, + thin, + frail appearing and cooperative; no acute distress Eyes: EOM intact bilaterally ENMT: Ears: no external ear abnormality Nose: no external nose abnormality Mouth: + dry oral mucous membranes Neck: no nuchal rigidity Respiratory: normal respiratory effort Auscultation: + diminished lung sounds and + crackles (fine end insp BL bases) Cardiovascular: Rate/Rhythm: regular rate and regular rhythm Heart Sounds: + murmur Extremities: no edema Gastrointestinal (Abdomen): Inspection/Auscultation: normal bowel sounds Percussion/Palpation: abdomen soft; abdomen nontender Musculoskeletal: Extremities: + abnormal strength Skin: no rashes, warm and dry Neurologic: arriaga but generalized weakness, fluent speech, no tremor Psychiatric: Orientation: oriented to person and oriented to place Insight: + limited insight Judgement: + limited judgement Results & Data ([facility]) Vital Signs (Past 12 Hours) Vital Signs Temp Pulse Resp BP BP Pulse Ox 03/02/22 07:01 37.3 C 73 18 120/62 98 03/01/22 22:30 36.8 C 73 18 104/60 97 Laboratory Results 03/01/22 08:46 03/02/22 06:09 Diagnostic Findings CXR on presentation Cardiomegaly with no acute cardiopulmonary abnormality. (chronic interstitial thickening) CTA Chest Nov 2021 Thyroid: Imaged portions of the thyroid gland are normal in size and attenuation. Thoracic aorta: There is mild atherosclerotic calcification of the thoracic aorta, which is normal in caliber and demonstrates standard 3-vessel arch anatomy. The thoracic aorta is not well opacified. Pulmonary vasculature: The main pulmonary arteries are markedly dilated indicating pulmonary artery hypertension. There are no filling defects identified in main, lobar, or proximal segmental pulmonary branches to suggest acute pulmonary embolus. Evaluation of the peripheral branches is degraded by motion artifact. There is trace chronic pulmonary embolus within a branch of the right upper lobe pulmonary artery seen on image #[id number]. Heart: The patient is status post midline sternotomy. The heart is enlarged and without pericardial effusion. Lungs and pleural spaces: Evaluation of the lung parenchyma is degraded by motion artifact. There is no airspace consolidation typical for pneumonia or pleural effusion. The trachea and central airways are clear. Dependent ate lectasis is noted at the lung bases. Mediastinum: There is no mediastinal lymphadenopathy. Carmen: Clear. Axillae: There is no axillary lymphadenopathy. Upper abdomen: Hepatic cysts measure up to 3.5 cm. There is a tiny hiatal hernia. Skeletal structures: The skeletal structures are osteopenic. Degenerative change and hyperkyphosis are noted in the thoracic spine. No lytic or blastic bony lesions are seen. IMPRESSION: 1. There is no evidence of acute pulmonary embolus in the main, lobar, or proxim al segmental pulmonary arteries. Evaluation of the segmental and subsegmental branches is degraded by motion artifact. 2. Trace chronic pulmonary embolus is seen within a branch of the right upper lobe pulmonary artery. 3. There is no airspace consolidation or pleural effusion. 4. Cardiomegaly with evidence of pulmonary artery hypertension. 5. Additional findings as above. TTE 11/221 EF 55-60%; no LV size/function; s/p Ross; mod-severe aortic RGG; mild TR (1) Fall Encounter type: initial encounter Qualified Code(s): W19.XXXA - Unspecified fall, initial encounter
--- NOTE | 2022-03-02 12:53 | Hospitalist Progress Note ---
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 She had recently been seen for fever, SOB and poor appetite at local PCP clinic. She fell 2/2 weakness and was hydrated wtih 1 bag NSS in the office. CXR was clear, CT PE was negative with some incidental pulmonary nodules, labwork revealed anemia with some iron deficiency. In the ER CT Head: no acute changes. CXR: no acute changes. No significant electrolyte abnormality. In ER given 500 mL NSS Weakness/fever may be secondary to underlying UTI but this was ruled out and Rocephin was stopped Remains on fall precautions and cannot sit up independently which is a drastic difference from her baseline. Weakness Normal functioning at baseline No memory issues at baseline, and here she is oriented but is having trouble remembering details of case last week Initially suspected UTI, but this was ruled out No has hyponatremia and appears to be recovering If no improvement with electrolyte correction consider neurology consult. No gross focal deficits at this time. Hyponatremia Na 132 -->129-->129 with normal baseline. She is not eating well and appears to be dehydrated (tongue and mucous membranes are dry, concentrated urine, poor PO intake, patient states she feels dehyd rated, FeNa 0.7%). Consulted nephrology who is concerned the fluid status is somewhat different. Per nephro NSS held, PO intake encouraged, oral diuretic restarted, implemented fluid restriction (not to include protein shakes) Cont to monitor--appreciate nephrology input. Nutrition consult for help with diet supplementation and calorie counts given low PO intake demonstrated. Possible UTI started on Rocephin, but this was ruled out. Rocephin stopped today. Elevated troponin History Echo 12/17/2021: EF: 55-60%, s/p Ross procedure, moderate to severe aortic regurgitation, no aortic stenosis, mild tricuspid regurgitation Initial high sensitivity troponin: 14 and then continued to trend into the normal range. EKG sinus rhythm, T wave inversion septal leads Patient without chest pain or shortness of breath Less likely related to ACS with trop trend decreased and now negative DM II A1c: 8.6 on 12/03/2021 Hold Jardiance, metformin, Prandin At inpatient goal with basal bolus insulin. HTN Continue carvedilol, lisinopril Anemia There was a drop in H/H from 11.3/35.4-->9.5/28.9--> 08/23, stable today. Outpatient record review reveals iron deficiency, so iron supplementation started and have her f/u with outpatient PCP to continue investigation/monitoring into cause of this. Repeat CBC in am. No overt bleeding is present. Cont apixaban for now. Chronic PE, chronic RLE DVT Continue Eliquis CKD III Cr: 1.0. Baseline Cr: 1.1 Monitor renal functions, avoid nephrotoxic agents when possible Asthma No signs acute exacerbation Suspect some type of recent viral illness with laryngitis type picture. Continue home inhalers and nebs, Singulair DVT Prophylaxis: apixaban DNR/DNI Dispo- cont hospital stay pending improvement in weakness. Once electrolytes are corrected, if she is still weak, may want to transfer to rehab program. [facility]ales [facility] Admission and Anticipated Discharge Date Admission Date: February 27, 2022 Subjective 81 yo F presented with weakness and after recent fall during an outpatient medical visit. She is still weak today, unable to sit up on her own Denies feeling any differently today. NSS started yesterday afternoon and Na remains 129 this morning. Reports poor PO intake throughout the week. Still has poor appetite and not eating much. Typically lives independently and functions well. Review of Systems Review of Systems: All systems were reviewed and negative except as indicated in subjective above. Physical Exam Physical Exam: CONSTITUTIONAL: WNWD, vitals as above, generally appears fatigued, NAD. EYES: normal conjunctivae, no scleral icterus ENT: external ear and nose normal, hoarseness of voice-improved. NECK: trachea midline, RESPIRATORY: clear to auscultation bilaterally, no crackles, rales or wheezes, normal respiratory effort CARDIOVASCULAR: regular rate and rhythm, S1 and 2 heard without murmurs, gallops or rubs, no JVD, no peripheral edema CHEST: inspection of chest was normal GASTROINTESTINAL: soft, nontender, ND, no guarding MUSCULOSKELETAL: strength 5/5 throughout however, generally weak and unable to sit up independently, head is normocephalic and atraumatic, SKIN: warm and dry, NEUROLOGIC: CN 2-12 grossly intact, no sensory deficit, normal cognition, some dysarthria/hoarseness, no tremor, no gross focal deficits. PSYCHIATRIC: alert cooperative and oriented to person, place and time. Results & Data Results & Data ([facility]) Vital Signs (Past 12 Hours) Vital Signs Temp Pulse Resp BP Pulse Ox 03/02/22 07:01 37.3 C 73 18 120/62 98 Laboratory Results BMP 03/01/22 03/02/22 18:01 06:09 Sodium 129 L 129 L Potassium 3.9 3.9 Chloride 97 L 99 Carbon Dioxide 23 22 BUN 28 H 23 Creatinine 1.12 0.95 Glucose 116 H 132 H Calcium 8.5 8.2 L Cardiac Enzymes 03/01/22 Range/Units 18:01 Total Creatine Kinase 628 H (26-192) U/L Medications Administered Current Inpatient Medications Acetaminophen (Acetaminophen 325 Mg Tab) 650 mg PO Q4H PRN PRN Reason: Pain or Fever Stop: 03/29/22 16:04 Last Admin: 02/28/22 20:10 Dose: 650 mg Documented by: Albuterol (Albut/Ipratrop 3mg/0.5mg Neb 3 Ml Vial) 3 ml NEB QIDR PRN; Protocol PRN Reason: SOB/wheezing Stop: 03/29/22 16:04 Apixaban (Apixaban 5 Mg Tablet) 5 mg PO BID [facility] Stop: 03/29/22 20:59 Last Admin: 03/02/22 09:07 Dose: 5 mg Documented by: Aspirin (Aspirin 81 Mg Ectab) 81 mg PO QAM [facility] Stop: 03/29/22 16:04 Last Admin: 03/02/22 09:07 Dose: 81 mg Documented by: Budesonide (Budesonide 0.5 Mg/2 Ml Vial (Pulmicort)) 0.5 mg INH BIDR TANJA Stop: 03/29/22 18:59 Last Admin: 03/02/22 07:00 Dose: 0.5 mg Documented by: Carvedilol (Carvedilol 3.125 Mg Tab) 3.125 mg PO QPM TANJA Stop: 03/29/22 20:59 Last Admin: 03/01/22 20:33 Dose: 3.125 mg Documented by: Carvedilol (Carvedilol 6.25 Mg Tab) 6.25 mg PO QAM [facility] Stop: 03/30/22 08:59 Last Admin: 03/02/22 09:07 Dose: 6.25 mg Documented by: Cetirizine HCl (Cetirizine Hcl 10 Mg Tablet) 5 mg PO HS [facility] Stop: 03/29/22 20:59 Last Admin: 02/28/22 20:11 Dose: 5 mg Documented by: Dextrose (Dextrose 50% 50 Ml Syringe) 25 - 50 ml IV UD PRN; Protocol PRN Reason: Hypoglycemia Protocol Stop: 03/29/22 16:04 Diclofenac Sodium (Diclofenac Sod 1% Gel 100 Gm Tube) 2 gm EXT QID PRN PRN Reason: Pain Stop: 03/29/22 16:04 Docusate Sodium (Docusate Sodium 100 Mg Cap) 100 mg PO BID [facility] Stop: 03/29/22 20:59 Last Admin: 03/02/22 09:07 Dose: 100 mg Documented by: Ethacrynic Acid (Ethacrynic Acid 25 Mg Tab) 25 mg PO QAM [facility] Stop: 03/30/22 08:59 Last Admin: 02/28/22 08:55 Dose: 25 mg Documented by: Ethacrynic Acid (Ethacrynic Acid 25 Mg Tab) 25 mg PO Q2D@0900 [facility] Stop: 04/02/22 08:59 Fluoxetine HCl (Fluoxetine Hcl 20 Mg Cap) 40 mg PO QAM [facility] Stop: 03/30/22 08:59 Last Admin: 03/02/22 09:07 Dose: 40 mg Documented by: Gabapentin (Gabapentin 100 Mg Cap) 100 mg PO BID [facility] Stop: 03/29/22 20:59 Last Admin: 03/02/22 09:07 Dose: 100 mg Documented by: Glucagon (Glucagon For Inj 1 Mg Vial) 1 mg SQ UD PRN; Protocol PRN Reason: Hypoglycemia Protocol Stop: 03/29/22 16:04 Glucose (Glucose 10 Tabs/Tube) 4 - 8 tabs PO UD PRN; Protocol PRN Reason: Hypoglycemia Protocol Stop: 03/29/22 16:04 Glucose (Glucose 40% Gel 15 Gm Tube) 15 - 30 gm PO UD PRN; Protocol PRN Reason: Hypoglycemia Protocol Stop: 03/29/22 16:04 Insulin Aspart (Insulin Aspart Per Unit) 0 units SC ACHS TANJA Stop: 03/29/22 16:29 Last Admin: 03/02/22 11:51 Dose: Not Given Documented by: Insulin Glargine (Insulin Glargine Solostar 100 Units/Ml 3 Ml Pen) 10 units SC BID [facility] Stop: 03/31/22 11:44 Last Admin: 03/02/22 09:08 Dose: 10 units Documented by: Lisinopril (Lisinopril 5 Mg Tab) 5 mg PO BID [facility] Stop: 03/29/22 20:59 Last Admin: 03/02/22 09:07 Dose: 5 mg Documented by: Miscellaneous (Carbohydrates For Hypoglycemia ) 15 - 30 gm PO UD PRN PRN Reason: Hypoglycemia Protocol Stop: 03/29/22 16:04 Montelukast Sodium (Montelukast Sodium 10 Mg Tablet) 10 mg PO QAM [facility] Stop: 03/30/22 08:59 Last Admin: 03/02/22 09:07 Dose: 10 mg Documented by: Multivitamins (Multivitamin Tab) 1 tab PO QAM [facility] Stop: 03/30/22 08:59 Last Admin: 03/02/22 09:06 Dose: 1 tab Documented by: Ondansetron HCl (Ondansetron Inj 2 Mg/Ml 2 Ml Vial) 4 mg IV Q6H PRN PRN Reason: Nausea Stop: 03/29/22 16:04 Polyethylene Glycol (Polyethylene (Miralax) 17 Gm Pack) 17 gm PO DAILY PRN PRN Reason: Constipation Stop: 03/29/22 16:04 Trazodone HCl (Trazodone Hcl 50 Mg Tab) 50 mg PO HS PRN PRN Reason: Insomnia Stop: 03/29/22 16:04 Umeclidinium [place] (Umeclidinium [place] 62.5mcg/Blister 7 Puffs/Inhaler) 1 puffs INH DAILY [facility]; Protocol Stop: 03/30/22 08:59 Last Admin: 03/02/22 09:08 Dose: 1 puffs Documented by:
--- NOTE | 2022-03-02 14:47 | XRay Report ---
XR chest 1V portable HISTORY: check volume status COMPARISON: Chest 02/27/2022. FINDINGS: The cardiac silhouette remains mildly enlarged. There are poststernotomy changes. The lungs are clear. No pleural fusions. No pneumothorax. No evidence for pulmonary edema. Degenerative change s again noted within the shoulders. IMPRESSION: Stable mild cardiomegaly. Otherwise, no acute process within the chest. ACT 112: Negative or not required by law. Electronically signed by: Primitivo Horvath M.D. 03/02/2022 2:45 PM
[2022-03-02 18:30] LABS: Anion Gap 8 (3-11); BUN Creatinine Ratio 21.4 (10-20); Blood Urea Nitrogen 21 mg/dl (6-23); Calcium 8.3 mg/dl (8.5-10.1); Carbon Dioxide 22 mmol/L (21-32); Chloride 99 mmol/L (98-107); Est GFR (African American) 61.8 ml/min; Est GFR (Non-African American) 53.3 ml/min; Glucose 163 mg/dl (70-99(Fasting)); Potassium 3.8 mmol/L (3.5-5.1); Sodium 129 mmol/L (136-145)
[2022-03-02] MEDS: carvediloL 3.125 MG TAB PO SCH (20:38)
[2022-03-03] MEDS: BUDESONIDE 0.5 MG/2 ML VIAL (PULMICORT) INH SCH ×2 (07:00→19:48)
--- NOTE | 2022-03-03 07:39 | Nephrology Progress Note ---
Date of Service March 03, 2022 Assessment & Plan (1) Chronic hyponatremia: Plan: new hyponatremia this admission mild with presenting sNa 132, down to 129 48 hrs later and stuck there, w/ labs this am pending> 130. suspect low solute diet; also with chronic lung disease +/- element of HFpEF/mild vol OL -stopped NS -resumed ethacrynic acid 25 mg q48hr first dose today -FR 1.5L ordered/to continue -encourage protein intake-protein shakes do not count toward FR -start urea this evening 15 gm bid -daily bmp (2) Fall: Plan: -consider carotid doppler study -consider cardiology c/s given valvular disease Admission and Anticipated Discharge Date Admission Date: February 27, 2022 Subjective still very thirsty and w/ minimal PO. no sob, no n/v Review of Systems Review of Systems: All systems reviewed & are unremarkable except as noted in Subjective Physical Exam Constitutional: well developed, + thin, + frail appearing and cooperative; no acute distress Eyes: EOM intact bilaterally ENMT: Ears: no external ear abnormality Nose: no external nose abnormality Mouth: + dry oral mucous membranes Neck: no nuchal rigidity Respiratory: normal respiratory effort Auscultation: + diminished lung sounds Cardiovascular: Rate/Rhythm: regular rate and regular rhythm Heart Sounds: + murmur Extremities: no edema Gastrointestinal (Abdomen): Inspection/Auscultation: normal bowel sounds Percussion/Palpation: abdomen soft; abdomen nontender Musculoskeletal: Extremities: + abnormal strength Skin: no rashes, warm and dry Neurologic: arriaga, no tremor, fluent speech Psychiatric: Orientation: oriented to person and oriented to place Insight: + limited insight Judgement: + limited judgement Results & Data ([facility]) Vital Signs (Past 12 Hours) Vital Signs Temp Pulse Resp BP Pulse Ox 03/03/22 07:35 65 20 98 03/02/22 23:00 37.0 C 73 19 126/51 L 97 03/02/22 19:48 74 18 95 Laboratory Results 03/01/22 08:46 Diagnostic Findings cxr FINDINGS: The cardiac silhouette remains mildly enlarged. There are poststernotomy changes. The lungs are clear. No pleural fusions. No pneumothorax. No evidence for pulmonary edema. Degenerative changes again noted within the shoulders. IMPRESSION: Stable mild cardiomegaly. Otherwise, no acute process within the chest. (1) Fall Encounter type: initial encounter Qualified Code(s): W19.XXXA - Unspecified fall, initial encounter
[2022-03-03 07:51] LABS: Anion Gap 7 (3-11); BUN Creatinine Ratio 24.1 (10-20); Blood Urea Nitrogen 19 mg/dl (6-23); C Reactive Protein 1.18 mg/dl (0-0.5); Calcium 8.3 mg/dl (8.5-10.1); Carbon Dioxide 23 mmol/L (21-32); Chloride 100 mmol/L (98-107); Creatine Kinase 383 U/L (26-192); Est GFR (African American) 80.2 ml/min; Est GFR (Non-African American) 69.2 ml/min; Glucose 79 mg/dl (70-99(Fasting)); Potassium 3.8 mmol/L (3.5-5.1); Sodium 130 mmol/L (136-145)
[2022-03-03] MEDS: MONTELUKAST SODIUM 10 MG TABLET PO SCH (08:56)
[2022-03-03] MEDS: UMECLIDINIUM BROMIDE 62.5MCG/BLISTER 7 PUFFS/INHALER INH SCH (08:56)
[2022-03-03] MEDS: FLUoxetine HCL 20 MG CAP PO SCH (08:56)
[2022-03-03] MEDS: lisinopril 5 MG TAB PO SCH ×2 (08:56→21:05)
[2022-03-03] MEDS: carvediloL 6.25 MG TAB PO SCH (08:57)
[2022-03-03] MEDS: MULTIVITAMIN TAB PO SCH (08:57)
[2022-03-03] MEDS: ASPIRIN 81 MG ECTAB PO SCH (08:57)
[2022-03-03] MEDS: GABAPENTIN 100 MG CAP PO SCH ×2 (08:58→21:05)
[2022-03-03] MEDS: APIXABAN 5 MG TABLET PO SCH ×2 (08:58→21:05)
[2022-03-03] MEDS: DOCUSATE SODIUM 100 MG CAP PO SCH ×2 (08:58→21:05)
[2022-03-03] MEDS: INSULIN GLARGINE SOLOSTAR 100 UNITS/ML 3 ML PEN SC SCH ×2 (08:59→21:05)
[2022-03-03] MEDS ORDERED: ETHACRYNIC ACID 25 MG TAB PO SCH (09:00)
[2022-03-03] MEDS: INSULIN ASPART PER UNIT SC SCH ×4 (09:04→21:05)
--- NOTE | 2022-03-03 10:36 | Hospitalist Progress Note ---
Date of Service March 03, 2022 Assessment & Plan (1) Weakness: Plan: per Dr. 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 She had recently been seen for fever, SOB and poor appetite at local PCP clinic. She fell 2/2 weakness and was hydrated wtih 1 bag NSS in the office. CXR was clear, CT PE was negative with some incidental pulmonary nodules, labwork revealed anemia with some iron deficiency. In the ER CT Head: no acute changes. CXR: no acute changes. No significant electrolyte abnormality. In ER given 500 mL NSS Weakness/fever may be secondary to underlying UTI but this was ruled out and Rocephin was stopped Remains on fall precautions and cannot sit up independently which is a drastic difference from her baseline. Weakness Normal functioning at baseline No memory issues at baseline, and here she is oriented but is having trouble remembering details of case last week Initially suspected UTI, but this was ruled out No has hyponatremia and appears to be recovering If no improvement with electrolyte correction consider neurology consult. No gross focal deficits at this time. 5/10 likely from recent Viral Respiratory Illness 2 chest xrays 3 days apart--> no pneumonia gradually improving oriented x 3 answers questions appropriately appetite is returning very willing to participate with PT continue PT/OT will need Rehab patient agreeable Hyponatremia Na 132 -->129-->129 with normal baseline. She is not eating well and appears to be dehydrated (tongue and mucous membranes are dry, concentrated urine, poor PO intake, patient states she feels dehydrated, FeNa 0.7%). Consulted nephrology who is concerned the fluid status is somewhat different. Per nephro NSS held, PO intake encouraged, oral diuretic restarted, implemented fluid restriction (not to include protein shakes) Cont to monitor--appreciate nephrology input. Nutrition consult for help with diet supplementation and calorie counts given low PO intake demonstrated. 5/10 Na 129 --> 130 multifactorial: low solute diet, possible mild volume overload Nephro on board NSS discontinued resume ethacrynic acid tomorrow Possible UTI started on Rocephin, but this was ruled out. Rocephin stopped. Elevated troponin History Echo 12/17/2021: EF: 55-60%, s/p Ross procedure, moderate to severe aortic regurgitation, no aortic stenosis, mild tricuspid regurgitation Initial high sensitivity troponin: 14 and then continued to trend into the normal range. EKG sinus rhythm, T wave inversion septal leads Patient without chest pain or shortness of breath Less likely related to ACS with trop trend decreased and now negative 03/03 remains without cardiac symptoms DM II A1c: 8.6 on 12/03/2021 Hold Jardiance, metformin, Prandin At inpatient goal with basal bolus insulin. HTN Continue carvedilol, lisinopril Anemia There was a drop in H/H from 11.3/35.4-->9.5/28.9--> 30, stable today. Outpatient record review reveals iron deficiency, so iron supplementation started and have her f/u with outpatient PCP to continue investigation/monitoring into cause of this. No overt bleeding is present. Cont apixaban for now. 5/10 Hg stable at 9.5 Chronic PE, chronic RLE DVT Continue Eliquis CKD III Cr: 1.0. Baseline Cr: 1.1 Monitor renal functions, avoid nephrotoxic agents when possible Asthma No signs acute exacerbation Suspect some type of recent viral illness with laryngitis type picture. Continue home inhalers and nebs, Singulair DVT Prophylaxis: apixaban DNR/DNI Dispo- cont hospital stay pending improvement in weakness. Once electrolytes are corrected, if she is still weak, transfer to rehab program. Admission and Anticipated Discharge Date Admission Date: February 27, 2022 Subjective ff up for weakness, etc seen resting in bed, comfortable states she feels overall improved, although slowly denies headache, dizziness, cough, abdominal pain, nausea/vomiting, diarrhea no chest pain, dyspnea, palpitations, dizziness appetite improving overall strenght improving since admission but still far from baseline no other symptoms Review of Systems Review of Systems: all noted and negative except for above Physical Exam Physical Exam: General- oriented x 3, not in distress, speaks in sentences with no effort or accessory muscle use thin Head- atraumatic Eyes- PERRL, EOMI, anicteric ENT- oropharynx clear Neck- supple, no JVD, no adenopathy, no thyromegaly; carotids +2/2, no bruits appreciated Lungs- clear to auscultation bilaterally, no rales/wheezes Heart- normal rate, regular rhythm; no murmur, no gallop, no rub appreciated Abdomen- normal bowel sounds, nondistended, soft, nontender, no masses or hepatosplenomegaly Extremities- no pretibial edema, no calf tenderness; peripheral pulses intact Neuro- alert, oriented x 3; CN 2-12 grossly intact; motor 5/5 bilaterally;sensation 100% on all extremities; no other gross focal neurologic deficits Skin- warm & dry Results & Data Results & Data ([facility]) Vital Signs (Past 12 Hours) Vital Signs Temp Pulse Resp BP BP Pulse Ox 03/03/22 08:50 138/64 03/03/22 07:56 36.8 C 67 18 147/52 H 97 03/03/22 07:35 65 20 98 03/02/22 23:00 37.0 C 73 19 126/51 L 97
[2022-03-03] MEDS: carvediloL 3.125 MG TAB PO SCH (21:05)
[2022-03-03] MEDS: UREA (UREA-NA) 15 GM PACK PO SCH (21:46)
[2022-03-04] MEDS: ALBUT/IPRATROP 3MG/0.5MG NEB 3 ML VIAL NEB PRN (07:18)
[2022-03-04] MEDS: BUDESONIDE 0.5 MG/2 ML VIAL (PULMICORT) INH SCH ×2 (07:19→19:26)
[2022-03-04] MEDS: INSULIN ASPART PER UNIT SC SCH ×4 (09:03→21:27)
[2022-03-04] MEDS: DOCUSATE SODIUM 100 MG CAP PO SCH ×2 (09:05→21:24)
[2022-03-04] MEDS: GABAPENTIN 100 MG CAP PO SCH ×2 (09:05→21:25)
[2022-03-04] MEDS: MONTELUKAST SODIUM 10 MG TABLET PO SCH (09:05)
[2022-03-04] MEDS: FLUoxetine HCL 20 MG CAP PO SCH (09:06)
[2022-03-04] MEDS: MULTIVITAMIN TAB PO SCH (09:06)
[2022-03-04] MEDS: APIXABAN 5 MG TABLET PO SCH ×2 (09:06→21:25)
[2022-03-04] MEDS: ASPIRIN 81 MG ECTAB PO SCH (09:06)
[2022-03-04] MEDS: INSULIN GLARGINE SOLOSTAR 100 UNITS/ML 3 ML PEN SC SCH ×2 (09:08→21:26)
[2022-03-04] MEDS: UMECLIDINIUM BROMIDE 62.5MCG/BLISTER 7 PUFFS/INHALER INH SCH (09:09)
[2022-03-04] MEDS: UREA (UREA-NA) 15 GM PACK PO SCH ×2 (09:09→21:25)
--- NOTE | 2022-03-04 09:52 | Nephrology Progress Note ---
Date of Service March 04, 2022 Assessment & Plan (1) Chronic hyponatremia: Plan: new hyponatremia this admission mild with presenting sNa 132, down to 129 48 hrs later and stuck there, w/ labs this am pending> 130. suspect low solute diet; also with chronic lung disease +/- element of HFpEF/mild vol OL >>>f/u labs from today; orders in -resumed ethacrynic acid 25 mg q48hr first dose 03/03 >> may need to increase depending on labs -FR 1.5L ordered/to continue >> may need to tighten this depending on labs today -encourage protein intake-protein shakes do not count toward FR -start urea this evening 15 gm bid -daily bmp (2) Fall: Plan: -consider carotid doppler study -consider cardiology c/s given valvular disease Admission and Anticipated Discharge Date Admission Date: February 27, 2022 Subjective ate minimal breakfast per RN though pt feels she did well. does not like boost but will drink; no pain, no n/v; Review of Systems Review of Systems: All systems reviewed & are unremarkable except as noted in Subjective Physical Exam Constitutional: well developed, + thin, + frail appearing and cooperative; no acute distress Eyes: EOM intact bilaterally ENMT: Ears: no external ear abnormality Nose: no external nose abnormality Mouth: + dry oral mucous membranes Neck: no nuchal rigidity Respiratory: normal respiratory effort Auscultation: + diminished lung sounds and + crackles (bibasilar) Cardiovascular: Rate/Rhythm: regular rate and regular rhythm Heart Sounds: + murmur Extremities: no edema Gastrointestinal (Abdomen): Inspection/Auscultation: normal bowel sounds Percussion/Palpation: abdomen soft; abdomen nontender Musculoskeletal: Extremities: + abnormal strength Skin: no rashes, warm and dry Psychiatric: Orientation: oriented to person and oriented to place Insight: + limited insight Judgement: + limited judgement Results & Data ([facility]) Vital Signs (Past 12 Hours) Vital Signs Temp Pulse Resp BP BP Pulse Ox 03/04/22 07:19 73 18 98 03/04/22 07:00 36.7 C 67 18 148/60 H 100 03/03/22 23:03 37.2 C 75 18 110/57 L 97 (1) Fall Encounter type: initial encounter Qualified Code(s): W19.XXXA - Unspecified fall, initial encounter
[2022-03-04] MEDS: carvediloL 6.25 MG TAB PO SCH (10:14)
[2022-03-04] MEDS: lisinopril 5 MG TAB PO SCH ×2 (10:15→21:25)
--- NOTE | 2022-03-04 13:58 | Hospitalist Progress Note ---
Date of Service March 04, 2022 Assessment & Plan (1) Weakness: Plan: per Dr. 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 She had recently been seen for fever, SOB and poor appetite at local PCP clinic. She fell 2/2 weakness and was hydrated wtih 1 bag NSS in the office. CXR was clear, CT PE was negative with some incidental pulmonary nodules, labwork revealed anemia with some iron deficiency. In the ER CT Head: no acute changes. CXR: no acute changes. No significant electrolyte abnormality. In ER given 500 mL NSS Weakness/fever may be secondary to underlying UTI but this was ruled out and Rocephin was stopped Remains on fall precautions and cannot sit up independently which is a drastic difference from her baseline. Weakness Normal functioning at baseline No memory issues at baseline, and here she is oriented but is having trouble remembering details of case last week Initially suspected UTI, but this was ruled out No has hyponatremia and appears to be recovering If no improvement with electrolyte correction consider neurology consult. No gross focal deficits at this time. 03/04 likely from recent Viral Respiratory Illness 2 chest xrays 3 days apart--> no pneumonia gradually improving oriented x 3 answers questions appropriately appetite improving very willing to participate with PT continue PT/OT will need Rehab once sodium consistently above 130 patient agreeable Hyponatremia Na 132 -->129-->129 with normal baseline. She is not eating well and appears to be dehydrated (tongue and mucous membranes are dry, concentrated urine, poor PO intake, patient states she feels dehydrated, FeNa 0.7%). Consulted nephrology who is concerned the fluid status is somewhat different. Per nephro NSS held, PO intake encouraged, oral diuretic restarted, implemented fluid restriction (not to include protein shakes) Cont to monitor--appreciate nephrology input. Nutrition consult for help with diet supplementation and calorie counts given low PO intake demonstrated. 03/04 Na 129 --> 130-->pending multifactorial: low solute diet, possible mild volume overload Nephro on board NSS discontinued Urea added resume ethacrynic acid today Possible UTI started on Rocephin, but this was ruled out. Rocephin stopped. Elevated troponin History Echo 12/17/2021: EF: 55-60%, s/p Ross procedure, moderate to severe aortic regurgitation, no aortic stenosis, mild tricuspid regurgitation Initial high sensitivity troponin: 14 and then continued to trend into the normal range. EKG sinus rhythm, T wave inversion septal leads Patient without chest pain or shortness of breath Less likely related to ACS with trop trend decreased and now negative 03/04 remains without cardiac symptoms DM II A1c: 8.6 on 12/03/2021 Hold Jardiance, metformin, Prandin Blood glucose 291 this afternoon Will consult pharmacy glycemic control HTN Continue carvedilol, lisinopril Anemia There was a drop in H/H from 11.3/35.4-->9.5/28.9--> 08/23, stable today. Outpatient record review reveals iron deficiency, so iron supplementation started and have her f/u with outpatient PCP to continue investigation/monitoring into cause of this. No overt bleeding is present. Cont apixaban for now. 5/10 Hg stable at 9.5 Chronic PE, chronic RLE DVT Continue Eliquis CKD III Cr: 1.0. Baseline Cr: 1.1 Monitor renal functions, avoid nephrotoxic agents when possible Asthma No signs acute exacerbation Suspect some type of recent viral illness with laryngitis type picture. Continue home inhalers and nebs, Singulair DVT Prophylaxis: apixaban DNR/DNI Dispo- cont hospital stay pending improvement in weakness. Once electrolytes are corrected, if she is still weak, transfer to rehab program. Admission and Anticipated Discharge Date Admission Date: February 27, 2022 Subjective Follow-up for hyponatremia, weakness, etc. Seen resting in bedside chair, comfortable States she feels okay today overall Continues to improve although gradually Appetite okay No chest pain, palpitations, dizziness, shortness of breath No cough, fevers or chills, abdominal pain, nausea vomiting No other symptoms Review of Systems Review of Systems: all noted and negative except for above Physical Exam Physical Exam: General- oriented x 3, not in distress, speaks in sentences with no effort or accessory muscle use Eyes- anicteric Neck- no JVD Lungs- clear BS bilaterally, no rales/wheezes Heart- normal rate, regular rhythm; no murmurs Abdomen- normal bowel sounds, nondistended, soft, nontender Extremities- no pretibial edema, no calf tenderness Neuro- alert, oriented x 3; no gross focal neurologic deficits Skin- warm & dry Results & Data Results & Data ([facility]) Vital Signs (Past 12 Hours) Vital Signs Temp Pulse Resp BP BP Pulse Ox 03/04/22 10:13 79 115/63 03/04/22 07:19 73 18 98 03/04/22 07:00 36.7 C 67 18 148/60 H 100 all noted and reviewed including below
[2022-03-04 15:11] LABS: BUN Creatinine Ratio 45.4 (10-20); Creatinine Clr Calc Pharmacy 33.4 ml/min; Est GFR (Non-African American) 47.4 ml/min; Potassium 4.1 mmol/L (3.5-5.1)
[2022-03-04] MEDS: carvediloL 3.125 MG TAB PO SCH (21:26)
[2022-03-05 06:17] LABS: BUN Creatinine Ratio 46.4 (10-20); Calcium 8.6 mg/dl (8.5-10.1); Creatinine Clr Calc Pharmacy 42.9 ml/min; Est GFR (African American) 74.5 ml/min; Est GFR (Non-African American) 64.3 ml/min
[2022-03-05] MEDS: ALBUT/IPRATROP 3MG/0.5MG NEB 3 ML VIAL NEB PRN (07:23)
[2022-03-05] MEDS: BUDESONIDE 0.5 MG/2 ML VIAL (PULMICORT) INH SCH ×2 (07:24→19:43)
[2022-03-05] MEDS: lisinopril 5 MG TAB PO SCH ×2 (08:33→20:33)
[2022-03-05] MEDS: FLUoxetine HCL 20 MG CAP PO SCH (08:33)
[2022-03-05] MEDS: carvediloL 6.25 MG TAB PO SCH (08:33)
[2022-03-05] MEDS: GABAPENTIN 100 MG CAP PO SCH ×2 (08:33→20:32)
[2022-03-05] MEDS: UREA (UREA-NA) 15 GM PACK PO SCH ×2 (08:33→20:34)
[2022-03-05] MEDS: MULTIVITAMIN TAB PO SCH (08:34)
[2022-03-05] MEDS: DOCUSATE SODIUM 100 MG CAP PO SCH ×2 (08:34→20:34)
[2022-03-05] MEDS: APIXABAN 5 MG TABLET PO SCH ×2 (08:34→20:31)
[2022-03-05] MEDS: MONTELUKAST SODIUM 10 MG TABLET PO SCH (08:34)
[2022-03-05] MEDS: INSULIN GLARGINE SOLOSTAR 100 UNITS/ML 3 ML PEN SC SCH ×2 (08:36→20:30)
[2022-03-05] MEDS: UMECLIDINIUM BROMIDE 62.5MCG/BLISTER 7 PUFFS/INHALER INH SCH (08:38)
--- NOTE | 2022-03-05 08:40 | Nephrology Progress Note ---
Date of Service March 05, 2022 Assessment & Plan (1) Chronic hyponatremia: Plan: new hyponatremia this admission mild with presenting sNa 132, down to 129 48 hrs later and stuck there, w/ labs past 48 hrs at 130. multifactorial euvolemic hyponatremia> low solute diet; also with chronic lung disease +/- element of HFpEF -as OP she takes ethacrynic acid 25 mg q48hr first dose /10 as IP >> changed dose to daily 50 mg starting today -will give K 20 mEq daily starting today -FR tightened to 1.2L ordered/to continue -encourage protein intake-protein shakes do not count toward FR -cont urea 15 gm bid -daily bmp DISCHARGE RECS -after d/c q Mon/ bmp -hospital discharge appt with Gustavo or Tatyana 1-2 wks after hospital discharge -medication recs to depend on labs tomorrow Care coordinated w/ dr Ruggiero (2) Fall: Plan: -consider carotid doppler study -consider cardiology c/s given valvular disease Admission and Anticipated Discharge Date Admission Date: February 27, 2022 Subjective no complaints but also quite lethargic this am. no sob, no uncontrolled pain; ongoing poor /minimal intake; seen on rounds this am 0940 Review of Systems Review of Systems: All systems reviewed & are unremarkable except as noted in Subjective Physical Exam 2 Constitutional: well developed, + thin, + frail appearing and cooperative; no acute distress Eyes: EOM intact bilaterally ENMT: Ears: no external ear abnormality Nose: no external nose abnormality Mouth: + dry oral mucous membranes Neck: no nuchal rigidity Respiratory: normal respiratory effort Auscultation: + diminished lung sounds Cardiovascular: Rate/Rhythm: regular rate and regular rhythm Heart Sounds: + murmur Extremities: no edema Gastrointestinal (Abdomen): Inspection/Auscultation: normal bowel sounds Percussion/Palpation: abdomen soft; abdomen nontender Musculoskeletal: Extremities: + abnormal strength Skin: no rashes, warm and dry Psychiatric: Orientation: oriented to person and oriented to place Insight: + limited insight Judgement: + limited judgement Results & Data ([facility]) Vital Signs (Past 12 Hours) Vital Signs Temp Pulse Resp BP Pulse Ox 03/05/22 07:25 70 16 96 03/05/22 06:44 36.3 C L 75 18 132/68 99 03/04/22 22:51 36.7 C 70 18 100/54 L 98 03/04/22 21:24 71 110/48 L 98 Laboratory Results 03/01/22 08:46 03/05/22 05:03 (1) Fall Encounter type: initial encounter Qualified Code(s): W19.XXXA - Unspecified fall, initial encounter
[2022-03-05] MEDS: INSULIN ASPART PER UNIT SC SCH ×4 (08:42→20:30)
[2022-03-05] MEDS: ASPIRIN 81 MG ECTAB PO SCH (12:32)
[2022-03-05] MEDS: POTASSIUM CHLORIDE 10 MEQ TABCR PO SCH (12:33)
[2022-03-05] MEDS: ETHACRYNIC ACID 25 MG TAB PO SCH (12:33)
--- NOTE | 2022-03-05 13:33 | Hospitalist Progress Note ---
Date of Service March 05, 2022 Assessment & Plan (1) Weakness: Plan: per Dr. 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 She had recently been seen for fever, SOB and poor appetite at local PCP clinic. She fell 2/2 weakness and was hydrated wtih 1 bag NSS in the office. CXR was clear, CT PE was negative with some incidental pulmonary nodules, labwork revealed anemia with some iron deficiency. In the ER CT Head: no acute changes. CXR: no acute changes. No significant electrolyte abnormality. In ER given 500 mL NSS Weakness/fever may be secondary to underlying UTI but this was ruled out and Rocephin was stopped Remains on fall precautions and cannot sit up independently which is a drastic difference from her baseline. Weakness Normal functioning at baseline No memory issues at baseline, and here she is oriented but is having trouble remembering details of case last week Initially suspected UTI, but this was ruled out No has hyponatremia and appears to be recovering If no improvement with electrolyte correction consider neurology consult. No gross focal deficits at this time. 5/12 likely from recent Viral Respiratory Illness 2 chest xrays 3 days apart--> no pneumonia gradually improving oriented x 3 answers questions appropriately appetite improving very willing to participate with PT continue PT/OT will need Rehab once sodium consistently above 130 patient agreeable Hyponatremia Na 132 -->129-->129 with normal baseline. She is not eating well and appears to be dehydrated (tongue and mucous membranes are dry, concentrated urine, poor PO intake, patient states she feels dehydrated, FeNa 0.7%). Consulted nephrology who is concerned the fluid status is somewhat different. Per nephro NSS held, PO intake encouraged, oral diuretic restarted, implemented fluid restriction (not to include protein shakes) Cont to monitor--appreciate nephrology input. Nutrition consult for help with diet supplementation and calorie counts given low PO intake demonstrated. 5 Na 12 8-having >130 multifactorial: Euvolemic, low solute diet Nephro on board NSS discontinued Urea added Increased ethacrynic acid today to 50 mg daily Possible UTI started on Rocephin, but this was ruled out. Rocephin stopped. Elevated troponin History Echo 12/17/2021: EF: 55-60%, s/p Ross procedure, moderate to severe aortic regurgitation, no aortic stenosis, mild tricuspid regurgitation Initial high sensitivity troponin: 14 and then continued to trend into the normal range. EKG sinus rhythm, T wave inversion septal leads Patient without chest pain or shortness of breath Less likely related to ACS with trop trend decreased and now negative 03/05 remains without cardiac symptoms DM II A1c: 8.6 on 12/03/2021 Hold Jardiance, metformin, Prandin Blood glucose 291 this afternoon Will consult pharmacy glycemic control HTN Continue carvedilol, lisinopril Anemia There was a drop in H/H from 11.3/35.4-->9.5/28.9--> 08/23, stable today. Outpatient record review reveals iron deficiency, so iron supplementation started and have her f/u with outpatient PCP to continue investigation/monitoring into cause of this. No overt bleeding is present. Cont apixaban for now. 03/05 Hg stable at 9.5 Chronic PE, chronic RLE DVT Continue Eliquis CKD III Cr: 1.0. Baseline Cr: 1.1 Monitor renal functions, avoid nephrotoxic agents when possible Asthma No signs acute exacerbation Suspect some type of recent viral illness with laryngitis type picture. Continue home inhalers and nebs, Singulair DVT Prophylaxis: apixaban DNR/DNI Dispo- cont hospital stay pending improvement in weakness. Once electrolytes are corrected, if she is still weak, transfer to rehab program. Admission and Anticipated Discharge Date Admission Date: February 27, 2022 Subjective Follow-up for weakness, hyponatremia, etc. Seen sitting up in bed, comfortable, not distressed States she feels tired this morning, slept well Overall feeling better gradually every day no chest pain, dyspnea, palpitations, dizziness Appetite is okay as per patient No other symptoms Review of Systems Review of Systems: all noted and negative except for above Physical Exam Physical Exam: General- oriented x 3, not in distress, speaks in sentences with no effort or accessory muscle use Eyes- anicteric Neck- no JVD Lungs- clear breath sounds no crackles or wheezing bilaterally Heart- normal rate, regular rhythm; no murmurs Abdomen- normal bowel sounds, nondistended, soft, nontender Extremities- no pretibial edema, no calf tenderness Neuro- alert, oriented x 3; no gross focal neurologic deficits Skin- warm & dry Results & Data Results & Data ([facility]) Vital Signs (Past 12 Hours) Vital Signs Temp Pulse Resp BP Pulse Ox 03/05/22 07:25 70 16 96 03/05/22 06:44 36.3 C L 75 18 132/68 99
[2022-03-05] MEDS: carvediloL 3.125 MG TAB PO SCH (20:33)
[2022-03-06] MEDS: BUDESONIDE 0.5 MG/2 ML VIAL (PULMICORT) INH SCH (07:02)
[2022-03-06 07:27] LABS: BUN Creatinine Ratio 49.5 (10-20); Creatinine Clr Calc Pharmacy 39.6 ml/min; Est GFR (African American) 67.6 ml/min; Est GFR (Non-African American) 58.3 ml/min
[2022-03-06] MEDS: INSULIN GLARGINE SOLOSTAR 100 UNITS/ML 3 ML PEN SC SCH (08:31)
[2022-03-06] MEDS: UMECLIDINIUM BROMIDE 62.5MCG/BLISTER 7 PUFFS/INHALER INH SCH (08:31)
[2022-03-06] MEDS: lisinopril 5 MG TAB PO SCH (08:32)
[2022-03-06] MEDS: DOCUSATE SODIUM 100 MG CAP PO SCH (08:32)
[2022-03-06] MEDS: UREA (UREA-NA) 15 GM PACK PO SCH (08:32)
[2022-03-06] MEDS: MONTELUKAST SODIUM 10 MG TABLET PO SCH (08:34)
[2022-03-06] MEDS: GABAPENTIN 100 MG CAP PO SCH (08:34)
[2022-03-06] MEDS: APIXABAN 5 MG TABLET PO SCH (08:34)
[2022-03-06] MEDS: carvediloL 6.25 MG TAB PO SCH (08:34)
[2022-03-06] MEDS: MULTIVITAMIN TAB PO SCH (08:35)
[2022-03-06] MEDS: POTASSIUM CHLORIDE 10 MEQ TABCR PO SCH (08:35)
[2022-03-06] MEDS: ASPIRIN 81 MG ECTAB PO SCH (08:35)
[2022-03-06] MEDS: FLUoxetine HCL 20 MG CAP PO SCH (08:35)
[2022-03-06] MEDS: ETHACRYNIC ACID 25 MG TAB PO SCH (08:36)
[2022-03-06] MEDS: INSULIN ASPART PER UNIT SC SCH ×2 (08:36→12:42)
--- NOTE | 2022-03-06 09:47 | Nephrology Progress Note ---
Date of Service March 06, 2022 Assessment & Plan (1) Chronic hyponatremia: Plan: new hyponatremia this admission mild with presenting sNa 132, down to 129 48 hrs later and stuck there, w/ labs past 48 hrs at 130. multifactorial euvolemic hyponatremia> low solute diet; also with chronic lung disease +/- element of HFpEF -as OP she takes ethacrynic acid 25 mg q48hr first dose 03/03 as IP >> changed dose to daily 50 mg starting today -will give K 20 mEq daily starting today -FR tightened to 1.2L ordered/to continue -encourage protein intake-protein shakes do not count toward FR -cont urea 15 gm bid -daily bmp DISCHARGE RECS -after d/c q Wed/ bmp -hospital discharge appt with Gustavo or Joe 1-2 wks after hospital discharge -continue ethacrynic acid and potassium chloride and urea all current doses now and at discharge >>personal financial planner to verify prior to d/c that pt can obtain urea at reasonable cost as OP >cont 1.2 L fluid limit at d/c >protein shakes do NOT count toward limit (2) Fall: Plan: -consider carotid doppler study -consider cardiology c/s given valvular disease Admission and Anticipated Discharge Date Admission Date: February 27, 2022 Subjective seen on rounds at 10 15 today; up in chair; no c/o N/ sob/ edema Review of Systems Review of Systems: All systems reviewed & are unremarkable except as noted in Subjective Physical Exam Constitutional: well developed, + thin, + frail appearing and cooperative; no acute distress Eyes: EOM intact bilaterally ENMT: Ears: no external ear abnormality Nose: no external nose abnormality Mouth: + dry oral mucous membranes Neck: no nuchal rigidity Respiratory: normal respiratory effort Auscultation: + diminished lung lashon nds Cardiovascular: Rate/Rhythm: regular rate and regular rhythm Heart Sounds: + murmur Extremities: no edema Gastrointestinal (Abdomen): Inspection/Auscultation: normal bowel sounds Percussion/Palpation: abdomen soft; abdomen nontender Musculoskeletal: Extremities: + abnormal strength Skin: no rashes, warm and dry Psychiatric: Orientation: oriented to person and oriented to place Insight: + limited insight Judgement: + limited judgement Results & Data ([facility]) Vital Signs (Past 12 Hours) Vital Signs Temp Pulse Resp BP Pulse Ox 03/06/22 07:03 73 18 96 05/13/22 06:40 36.5 C 70 18 112/68 96 03/05/22 22:56 36.5 C 71 18 110/55 L 97 Laboratory Results 03/01/22 08:46 03/06/22 06:13 (1) Fall Encounter type: initial encounter Qualified Code(s): W19.XXXA - Unspecified fall, initial encounter
--- NOTE | 2022-03-06 11:54 | Hospitalist Progress Note ---
Date of Service March 06, 2022 Assessment & Plan (1) Weakness: Plan: per Dr. 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 She had recently been seen for fever, SOB and poor appetite at local PCP clinic. She fell 2/2 weakness and was hydrated wtih 1 bag NSS in the office. CXR was clear, CT PE was negative with some incidental pulmonary nodules, labwork revealed anemia with some iron deficiency. In the ER CT Head: no acute changes. CXR: no acute changes. No significant electrolyte abnormality. In ER given 500 mL NSS Weakness/fever may be secondary to underlying UTI but this was ruled out and Rocephin was stopped Remains on fall precautions and cannot sit up independently which is a drastic difference from her baseline. Weakness Normal functioning at baseline No memory issues at baseline, and here she is oriented but is having trouble remembering details of case last week Initially suspected UTI, but this was ruled out 03/06 likely from recent Viral Respiratory Illness 2 chest xrays 3 days apart--> no pneumonia gradually improving oriented x 3 answers questions appropriately appetite improving very willing to participate with PT continue PT/OT Hyponatremia Na 132 -->129-->129 with normal baseline. She is not eating well and appears to be dehydrated (tongue and mucous membranes are dry, concentrated urine, poor PO intake, patient states she feels dehydrated, FeNa 0.7%). Consulted nephrology who is concerned the fluid status is somewhat different. Per nephro NSS held, PO intake encouraged, oral diuretic restarted, implemented fluid restriction (not to include protein shakes) Nutrition consult for help with diet supplementation and calorie counts given low PO intake demonstrated. 03/06 multifactorial: Euvolemic, low solute diet Nephro on board- Dr. oJe NSS discontinued Urea added Increased ethacrynic acid to 50 mg daily Na 128-->130--> 133 discharge recommendations by Nephro Dr. Joe: -after d/c q Mon/Thurs bmp -hospital discharge appt with Gustavo or Tatyana 1-2 wks after hospital discharge -continue ethacrynic acid and potassium chloride and urea all current doses now and at discharge >>materials planner to verify prior to d/c that pt can obtain urea at reasonable cost as OP >cont 1.2 L fluid limit at d/c >protein shakes do NOT count toward limit Possible UTI started on Rocephin, but this was ruled out. Rocephin stopped. Elevated troponin History Echo 12/17/2021: EF: 55-60%, s/p Ross procedure, moderate to severe aortic regurgitation, no aortic stenosis, mild tricuspid regurgitation Initial high sensitivity troponin: 14 and then continued to trend into the normal range. EKG sinus rhythm, T wave inversion septal leads Patient without chest pain or shortness of breath Less likely related to ACS with trop trend decreased and now negative 03/06 remains without cardiac symptoms DM II A1c: 8.6 on 12/03/2021 Continue usual Jardiance, metformin, Prandin Monitor blood glucose HTN Continue carvedilol, lisinopril Anemia There was a drop in H/H from 11.3/35.4-->9.5/28.9--> 10/30, stable today. Outpatient record review reveals iron deficiency, so iron supplementation started and have her f/u with outpatient PCP to continue investigation/monitoring into cause of this. No overt bleeding is present. Cont apixaban for now. 03/06 Hg stable at 9.5 Chronic PE, chronic RLE DVT Continue Eliquis CKD III Cr: 1.0. Baseline Cr: 1.1 Monitor renal functions, avoid nephrotoxic agents when possible Asthma No signs acute exacerbation Suspect some type of recent viral illness with laryngitis type picture. Continue home inhalers and nebs, Singulair DVT Prophylaxis: apixaban DNR/DNI Dispo- transition to rehab Follow-up with retail merchandiser Dr. Ruggiero at [facility] in 1-2 weeks Admission and Anticipated Discharge Date Admission Date: February 27, 2022 Subjective Follow-up for hyponatremia, weakness, etc. Seen sitting up in bedside chair, comfortable, States she feels fine overall no chest pain, dyspnea, palpitations, dizziness No headache, cough, abdominal pain, nausea vomiting, problems with urination or bowel movement Appetite is okay No other symptoms Review of Systems Review of Systems: all noted and negative except for above Physical Exam Physical Exam: General- oriented x 2, not in distress, speaks in sentences with no effort or accessory muscle use Eyes- anicteric Neck- no JVD Lungs- clear breath sounds bilaterally, no wheezing, no crackles Heart- normal rate, regular rhythm; no murmurs Abdomen- normal bowel sounds, nondistended, soft, no tenderness Extremities- no pretibial edema, no calf tenderness Neuro- alert, oriented x 2; no gross focal neurologic deficits Skin- warm & dry Results & Data Results & Data ([facility]) Vital Signs (Past 12 Hours) Vital Signs Temp Pulse Resp BP Pulse Ox 03/06/22 07:03 73 18 96 03/06/22 06:40 36.5 C 70 18 112/68 96 all noted and reviewed including below
--- NOTE | 2022-03-06 12:04 | Discharge Summary ---
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 Today fell while getting out of car at [facility]. Patient feels that she slipped on wet ground causing her to fall. Denies dizziness, chest pain, shortness of breath prior to fall. She states fell against car then fell onto her buttocks. Denies hitting her head. Denies any pain or known injury. Patient reports yesterday was feeling generalized weakness and went to PCP. There she was given 1 L NSS. She was to return for recheck today. Patient reports participates in water aerobics 2-3 times a week. She states she was able to participate earlier this week. Chronic constipation. Last BM 3 days ago, denies any abdominal pain. She has chronic intermittent cough and chronic SOB, relieved with duonebs at home. Uses 4 times a day at baseline. Feels breathing and cough is at baseline. Denies fever/chills, diaphoresis, N/V/D, NESBITT, dizziness , syncope, vision changes, neck pain, CP, orthopnea, palpitations, sore throat, choking, otalgia, rhinorrhea, abdominal pain, paresthesias, extremity edema, rashes, dysuria, hematuria, urinary frequency, urinary retention. Principal Diagnosis GENERAL: Alert and oriented x3. NAD, on RA. HEENT: No pallor, no icterus. Pupils equal, round and reactive to light. Oral mucosa moist. NECK: No JVD, no neck masses. HEART: S1 and S2 heard. Regular rate and rhythm. No murmur, no gallop. RESPIRATORY SYSTEM: Normal AP diameter. No accessory muscle use. No wheezing, no crackles. increased breath sounds all over. ABDOMEN: Soft, bowel sounds present, nontender, no distention. CENTRAL NERVOUS SYSTEM: No facial droop. Speech is clear. Obeys simple commands. Moves extremities. EXTREMITIES: No edema, no erythema seen. Discharge Exam General- oriented x 2, not in distress, speaks in sentences with no effort or accessory muscle use Eyes- anicteric Neck- no JVD Lungs- clear breath sounds bilaterally, no wheezing, no crackles Heart- normal rate, regular rhythm; no murmurs Abdomen- normal bowel sounds, nondistended, soft, no tenderness Extremities- no pretibial edema, no calf tenderness Neuro- alert, oriented x 2; no gross focal neurologic deficits Skin- warm & dry Discharge Data Allergies Allergy/AdvReac Type Severity Reaction Status Date / Time sitagliptin Allergy Severe ANAPHYLAXIS Verified 02/27/22 12:18 empagliflozin Allergy Intermediate Blister Verified 02/27/22 12:18 [From Jardiance] furosemide Allergy Intermediate rash from Verified 02/27/22 12:18 "GENERIC" lasix hydrochlorothiazide Allergy Intermediate Rash Verified 02/27/22 12:18 Sulfa (Sulfonamide Allergy Intermediate PATEINT Verified 02/27/22 12:18 Antibiotics) HAS TOLERATED LASIX metoprolol Allergy Unknown ON MED LIST Verified 02/27/22 12:18 Penicillins Allergy Unknown Unknown Verified 01/30/22 11:31 codeine AdvReac Intermediate Confusion Verified 02/27/22 12:18 fenofibrate AdvReac Intermediate Muscle Pain Verified 02/27/22 12:18 prednisone AdvReac Intermediate delerium Verified 02/27/22 12:18 [id number]-[id number] Reductase AdvReac Intermediate elevated ck Verified 02/27/22 12:18 Inhibitor [Rghpshu-Klu-Ypd Reductase Inhibitor] Consultations 02/27/22 13:32 ED Decision to Admit Stat 03/02/22 09:05 Consult Nephrology Routine Ordered Studies 02/27/22 11:18 CT head/brain wo con Stat FINDINGS: Brain parenchyma: There is age-related involutional change noting mild subcortical and periventricular microangiopathic disease. There is no hemorrhage, mass effect, or evidence of acute territorial ischemia by CT cr iteria. Vigil-white matter differentiation is preserved. No extra-axial fluid collection is seen. Ventricles, sulci, cisterns: Prominent secondary to involutional change. Intracranial vasculature: There is atherosclerotic calcification of the cavernous carotid and vertebral arteries. Calvarium: The skeletal structures are osteopenic. No depressed calvarial fracture is identified. Sinuses and mastoids: There is septal opacification of the visualized left maxillary antrum. Mild mucosal thickening is noted within the right maxillary antra and the ethmoid sinuses. There is a small left mastoid effusion. The right mastoid air cells are well pneumatized. Orbits: The bony orbits are grossly intact. There are bilateral ocular lens implants. IMPRESSION: There is no hemorrhage, mass effect, or evidence of acute territorial ischemia by CT criteria. Hospital Course (1) Weakness: per Dr. 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 She had recently been seen for fever, SOB and poor appetite at local PCP clinic. She fell 2/2 weakness and was hydrated wtih 1 bag NSS in the office. CXR was clear, CT PE was negative with some incidental pulmonary nodules, labwork revealed anemia with some iron deficiency. In the ER CT Head: no acute changes. CXR: no acute changes. No significant electrolyte abnormality. In ER given 500 mL NSS Weakness/fever may be secondary to underlying UTI but this was ruled out and Rocephin was stopped Remains on fall precautions and cannot sit up independently which is a drastic difference from her baseline. Weakness Normal functioning at baseline No memory issues at baseline, and here she is oriented but is having trouble remembering details of case last week Initially suspected UTI, but this was ruled out 03/06 likely from recent Viral Respiratory Illness 2 chest xrays 3 days apart--> no pneumonia gradually improving oriented x 3 answers questions appropriately appetite improving very willing to participate with PT continue PT/OT Hyponatremia Na 132 -->129-->129 with normal baseline. She is not eating well and appears to be dehydrated (tongue and mucous membranes are dry, concentrated urine, poor PO intake, patient states she feels dehydrated, FeNa 0.7%). Consulted nephrology who is concerned the fluid status is somewhat different. Per nephro NSS held, PO intake encouraged, oral diuretic restarted, implemented fluid restriction (not to include protein shakes) Nutrition consult for help with diet supplementation and calorie counts given low PO intake demonstrated. 03/06 multifactorial: Euvolemic, low solute diet Nephro on board- Dr. Joe NSS discontinued Urea added Increased ethacrynic acid to 50 mg daily Na 128-->130--> 133 discharge recommendations by Nephro Dr. Joe: -after d/c q Mon/Thurs bmp -hospital discharge appt with Gustavo or Tatyana 1-2 wks after hospital discharge -continue ethacrynic acid and potassium chloride and urea all current doses now and at discharge >>senior production planner to verify prior to d/c that pt can obtain urea at reasonable cost as OP >cont 1.2 L fluid limit at d/c >protein shakes do NOT count toward limit Possible UTI started on Rocephin, but this was ruled out. Rocephin stopped. Elevated troponin History Echo 12/17/2021: EF: 55-60%, s/p Ross procedure, moderate to severe aortic regurgitation, no aortic stenosis, mild tricuspid regurgitation Initial high sensitivity troponin: 14 and then continued to trend into the normal range. EKG sinus rhythm, T wave inversion septal leads Patient without chest pain or shortness of breath Less likely related to ACS with trop trend decreased and now negative 03/06 remains without cardiac symptoms DM II A1c: 8.6 on 12/03/2021 Continue usual Jardiance, metformin, Prandin Monitor blood glucose HTN Continue carvedilol, lisinopril Anemia There was a drop in H/H from 11.3/35.4-->9.5/28.9--> 08/23, stable today. Outpatient record review reveals iron deficiency, so iron supplementation started and have her f/u with outpatient PCP to continue investigation/monitoring into cause of this. No overt bleeding is present. Cont apixaban for now. 03/06 Hg stable at 9.5 Chronic PE, chronic RLE DVT Continue Eliquis CKD III Cr: 1.0. Baseline Cr: 1.1 Monitor renal functions, avoid nephrotoxic agents when possible Asthma No signs acute exacerbation Suspect some type of recent viral illness with laryngitis type picture. Continue home inhalers and nebs, Singulair DVT Prophylaxis: apixaban DNR/DNI Dispo- transition to rehab Follow-up with electrician substation Dr. Ruggiero at [facility] in 1-2 weeks Total Time Total Time Spent Total Time Spent (In Minutes): >30 MINUTES Discharge Plan Discharge Items Patient Disposition: Transfer Inpatient Rehab Fac Reason For Visit: WEAKNESS Discharge Diagnosis: GENERALIZED WEAKNESS LIKELY SECONDARY TO HYPONATREMIA Activity: As commented below Activity Comment: Continue PT/OT, fall precautions please, always assist with ambulation Non-emergency contact: Primary Care Provider Call non-emergency contact if: you have any medication questions, your symptoms worsen and you have a fever Follow-up/Referrals: Brenna Joe MD, PhD [Physician] - (Date & Time 03/27/2022 9:00 AM Provider Brenna Joe MD Department Nephrology, [address] , [place], [place] [address] ) Letitia Nam, [Primary Care Provider] - Diet: Carb Consistent or DM2 and Heart Healthy Fluids: 1200ml (5 cups) Addtl Attending Provider Instructions: Please refer to accompanying hospital discharge summary for further details. Repeat basic metabolic panel on Wednesday and next week. Adjust ethacrynic acid, potassium, urea accordingly. If you have questions, you may reach out to [facility] electrician substation Dr. Brenna Ruggiero. Pending Studies at Discharge: Yes Studies:: Repeat basic metabolic panel on Wednesday and next week. Stand-Alone Forms: My Startcapps, Smoking Cessation Skilled Items Patient informed of condition?: Yes DNR: Yes Discharge Level of Care: Acute rehab Communicable Disease: No Discharge Prognosis: Stable Lines: None Urinary Catheter: No Medications and DC Order Prescriptions: New ethacrynic acid [Edecrin] 25 mg Tablet 50 mg PO DAILY 30 Days Qty: 60 RF: 0 docusate sodium 100 mg Capsule 100 mg PO BID 30 Days Qty: 60 RF: 0 potassium chloride 10 mEq Tablet,Er Particles/Crystals 10 meq PO DAILY 30 Days Qty: 30 RF: 0 Ure-Na 15 gram Powder In Packet 15 g PO BID 30 Days RF: 0 Continued multivitamin Tablet 2 tab PO QAM RF: 0 carvedilol 6.25 mg tablet 3.125 mg PO QPM RF: 0 carvedilol 6.25 mg tablet 6.25 mg PO QAM RF: 0 trazodone 50 mg tablet 50 mg PO HS PRN (Reason: Insomnia) RF: 0 albuterol sulfate 90 mcg/actuation HFA aerosol inhaler 2 puff inhalation BID PRN (Reason: Wheezing) RF: 0 repaglinide 1 mg tablet 1 mg PO TID RF: 0 fluoxetine 40 mg capsule 40 mg PO QAM RF: 0 ipratropium-albuterol 0.5 mg-3 mg(2.5 mg base)/3 mL solution for nebulization 3 ml INHALATION TID PRN (Reason: Shortness Of Breath Or Wheezing) RF: 0 budesonide 0.5 mg/2 mL suspension for nebulization 0.5 mg inhalation BID RF: 0 metformin 500 mg tablet extended release 24 hr 500 mg PO BID RF: 0 glucosamine-chondroitin [Osteo Bi-Flex] 250-200 mg Tablet 1 tab PO QAM RF: 0 Advair HFA 230-21 mcg/actuation HFA aerosol inhaler 2 puff INHALATION BID RF: 0 levocetirizine 5 mg tablet 5 mg PO HS RF: 0 diclofenac sodium 1 % Gel 2 g TOPICAL QID PRN (Reason: Pain) RF: 0 Spiriva Respimat 2.5 mcg/actuation mist 2 puff INHALATION QAM RF: 0 Jardiance 10 mg tablet 10 mg PO QAM RF: 0 lisinopril 10 mg Tablet 5 mg PO BID Qty: 0 RF: 0 ethacrynic acid 25 mg tablet 25 mg PO QAM RF: 0 montelukast 10 mg tablet 10 mg PO QAM RF: 0 Eliquis 5 mg tablet 5 mg PO BID RF: 0 aspirin [Aspir-81] 81 mg Tablet,Delayed Release (Dr/Ec) 81 mg PO QAM RF: 0 albuterol sulfate 2.5 mg /3 mL (0.083 %) Solution For Nebulization 2.5 mg INHALATION QID PRN (Reason: Shortness Of Breath) RF: 0 gabapentin 100 mg Capsule 100 mg PO BID RF: 0 Discontinued acetaminophen 650 mg Tablet Extended Release 1,300 mg PO BID RF: 0 Discharge Orders: Discharge Order (Routine); Ordered 03/06/22 Ordered By: Nitesh Ruggiero Admission Data Admit Date/Time: 02/27/22 14:01 Attending Provider: Nitesh Ruggiero Admit Provider: Noemí Orellana Primary Care Provider: Letitia Nam Other Providers: Noemí Orellana ; Brenna Joe ; [facility] ; Denise Rosales
== END 2022-03-06 15:46 | DRG 641 ==
LOC: ED 10:47 → SUATTDRO 14:01 → 2N 14:01

== ENCOUNTER 2022-03-22 10:47 | Inpatient (IN) ==
[2022-03-22] MEDS ORDERED: SODIUM CHLORIDE 0.9% 1000ML 1,000 ML IV ONE (11:09)
--- NOTE | 2022-03-22 11:16 | Emergency Department Note ---
Impression & Plan Weakness, UTI (urinary tract infection), Anemia, Elevated troponin ED Provider Note NAME: Mary HARRELL AGE: 81 SEX: F : 1940 ARRIVES VIA: Ambulance INFORMANT: Patient ED PROVIDER(S): Cal Menon DO CHIEF COMPLAINT: trouble talking HPI: Patient is an 81-year-old female with a past medical history of DM II, HTN, dyslipidemia, asthma, CKD III, chronic DVT/PE on chronic Eliquis who presents the ER for slurred speech. Patient was discharged from [facility] about 3 days ago and was transferred to [facility] on Wednesday. They noticed that she has had garbled speech and trouble swallowing since then. She denies any headache or change in vision. She does admit to trouble talking. No chest pain, shortness of breath, nausea, vomiting, or diarrhea. No dysuria, urgency, or frequency. She notes her belly hurts when they do move her. ROS: See above HPI for pertinent positives & negatives. A total of 10 systems reviewed and were otherwise negative. PAST MEDICAL HISTORY:See Below PAST SURGICAL HISTORY:See Below FAMILY HISTORY:See Below SOCIAL HISTORY:See Below HOME MEDICATIONS:See Below ALLERGIES:See Below VITALS:See Below PHYSICAL EXAMINATION: GENERAL: Sitting up in bed, alert, well appearing, well nourished, no distress, non-toxic EYE EXAM: normal conjunctiva. PERRL and EOM's intact. OROPHARYNX: no exudate, no erythema, lips, buccal mucosa, and tongue normal and mucous membranes are moist NECK: supple, no nuchal rigidity, no adenopathy, non-tender LUNGS: Clear to auscultation. Normal chest wall mechanics HEART: no murmurs, S1 normal and S2 normal ABDOMEN: abdomen soft, non-tender, normo-active bowel sounds, no masses, no rebound or guarding. BACK: Back is symmetrical on inspection and there is no deformity, no midline tenderness, no CVA tenderness. SKIN: no rashes and no bruising UPPER EXTREMITIES: upper extremities are grossly normal. LOWER EXTREMITIES: No pitting edema. NEURO EXAM: Oriented to person and place but not year, cranial nerves II-XII intact, garbled speech speech, no weakness of arms, no weakness of legs. No drift. Finger to nose intact. Gross sensation intact. MEDICAL DECISION MAKING: Patient is an 81-year-old female who presents the ER for the above-stated complaint. IV was established blood work is obtained. Labs show mild anemia at 11.6. INR was unremarkable. BMP showed an elevated glucose at 240. LFTs bilirubin was unremarkable. Troponin slightly elevated at 20. Lipase normal. UA was contaminated. Patient was given a gram Rocephin. CT angios of the head and neck were unremarkable. COVID was negative. Patient was updated bedside. Discussed with the hospitalist for further evaluation. Triage Nursing notes reviewed. Limited review of prior medical records performed Vital Signs: reviewed and remarkable for no significant abnormalities Differential diagnosis: Differential Diagnosis includes but is not limited to ischemic Stroke, hemorrhagic stroke, bells palsy, mass, neoplasm, migraine headache, seizure, subarachnoid hemorrhage, TIA, and transient global amnesia. ER treatment provided: See below Diagnostics interpreted by me: ECG: Atrial rhythm rate of 78 Normal axis Terrible baseline QTC 465 Cardiac Monitoring: An order was placed for continuous cardiac monitoring. The monitor shows a rate of 85 with sinus rhythm. Laboratory studies: As stated above and show below. 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) Surgical History (Updated 02/27/22 @ 14:45 by Ruthie Durant PA-C) History of colonoscopy Hx of total knee arthroplasty Family History Other Cancer Hypertension Social History (Updated 02/27/22 @ 14:46 by Ruthie Durant PA-C) Smoking Status: Never smoker Second Hand Exposure: No; Hx Alcohol Use: No Hx Substance Use: No Preferred Language: Ghanaian Communication Ability: Effective 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 Beliefs That Will Affect Care: None marital status: / Current Living Situation: Family Current Living Situation Comment: Pts grandson lives with her How many Children do You have: 1 Feels Safe at Home: Yes Assistive Devices: Walker Allergies Allergies Allergy/AdvReac Type Severity Reaction Status Date / Time sitagliptin Allergy Severe ANAPHYLAXIS Verified 03/22/22 13:14 empagliflozin Allergy Intermediate Blister Verified 03/22/22 13:14 [From Jardiance] furosemide Allergy Intermediate rash from Verified 03/22/22 13:14 "GENERIC" lasix hydrochlorothiazide Allergy Intermediate Rash Verified 03/22/22 13:14 Sulfa (Sulfonamide Allergy Intermediate PATEINT Verified 03/22/22 13:14 Antibiotics) HAS TOLERATED LASIX metoprolol Allergy Unknown ON MED LIST Verified 03/22/22 13:14 Penicillins Allergy Unknown Unknown Verified 03/22/22 13:14 codeine AdvReac Intermediate Confusion Verified 03/22/22 13:14 fenofibrate AdvReac Intermediate Muscle Pain Verified 03/22/22 13:14 prednisone AdvReac Intermediate delerium Verified 03/22/22 13:14 [id number] Reductase AdvReac Intermediate elevated ck Verified 03/22/22 13:14 Inhibitor [[id number]-Dsc Reductase Inhibitor] Home Meds Home Medications Medication Instructions Recorded Confirmed albuterol sulfate 90 mcg/actuation 2 puff INHALATION BID PRN 04/25/19 03/22/22 aerosol inhaler carvedilol 6.25 mg tablet 3.125 mg PO QPM 04/25/19 03/22/22 carvedilol 6.25 mg tablet 6.25 mg PO QAM 04/25/19 03/22/22 multivitamin 2 tab PO QAM 04/25/19 03/22/22 repaglinide 1 mg tablet 1 mg PO TID 04/25/19 03/22/22 trazodone 50 mg tablet 50 mg PO HS PRN 04/25/19 03/22/22 budesonide 0.5 mg/2 mL suspension 0.5 mg INHALATION BID 12/16/21 03/22/22 for nebulization diclofenac sodium 1 % topical gel 2 g TOPICAL QID PRN 12/16/21 03/22/22 empagliflozin 10 mg tablet 10 mg PO QAM 12/16/21 03/22/22 (Jardiance) fluoxetine 40 mg capsule 40 mg PO QAM 12/16/21 03/22/22 fluticasone propionate 230 2 puff INHALATION BID 12/16/21 03/22/22 mcg-salmeterol 21 mcg/actuation HFA inhaler (Advair HFA) glucosamine-chondroitin 250 mg-200 1 tab PO QAM 12/16/21 03/22/22 mg tablet (Osteo Bi-Flex) ipratropium 0.5 mg-albuterol 3 mg 3 ml INHALATION TID PRN 12/16/21 03/22/22 (2.5 mg base)/3 mL nebulization soln levocetirizine 5 mg tablet 5 mg PO HS 12/16/21 03/22/22 metformin 500 mg tablet,extended 500 mg PO BID 12/16/21 03/22/22 release 24 hr tiotropium bromide 2.5 2 puff INHALATION QAM 12/16/21 03/22/22 mcg/actuation mist for inhalation (Spiriva Respimat) apixaban 5 mg tablet (Eliquis) 5 mg PO BID 01/30/22 03/22/22 aspirin 81 mg tablet,delayed 81 mg PO QAM 01/30/22 03/22/22 release ethacrynic acid 25 mg tablet 25 mg PO QAM 01/30/22 03/22/22 montelukast 10 mg tablet 10 mg PO QAM 01/30/22 03/22/22 albuterol sulfate 2.5 mg INHALATION QID PRN 02/27/22 03/22/22 gabapentin 100 mg capsule 100 mg PO BID 02/27/22 03/22/22 Previous Rx's Medication Instructions Recorded lisinopril 10 mg tablet 5 mg PO BID #0 tab 12/18/21 docusate sodium 100 mg capsule 100 mg PO BID 30 Days #60 cap 03/06/22 ethacrynic acid 25 mg tablet 50 mg PO DAILY 30 Days #60 tab 03/06/22 (Edecrin) potassium chloride 10 mEq 10 meq PO DAILY 30 Days #30 tab 03/06/22 tablet,extended release(part/cryst) urea 15 gram oral powder packet 15 g PO BID 30 Days ea 03/06/22 (Ure-Na) Results & Data (ED) Vital Signs Vital Signs - 24 hr 03/22/22 11:03 03/22/22 12:00 03/22/22 14:00 Temperature 36.8 C Temperature Source Axillary Pulse Rate 89 Pulse Rate [Right Finger] 76 83 Pulse Rhythm [Right Finger] Irregular Pulse Strength Normal Pulse Strength [Right Finger] Normal Normal Respiratory Rate 22 22 18 Respiratory Effort / Characteristics Non-Labored Non-Labored Non-Labored Respiratory Depth Normal Normal Normal Respiratory Pattern Regular Regular Regular Blood Pressure 129/71 Blood Pressure [Right Arm] 144/55 H 132/51 L Blood Pressure Mean 90 Blood Pressure Mean [Right Arm] 84 78 Blood Pressure Position Lying Blood Pressure Position [Right Arm] Lying Lying Pulse Oximetry 99 99 99 Oxygen Delivery Method Room Air Room Air Room Air Sepsis Recent Fever Within 48 Hours No Sepsis New/Unexplained Change in Mental Status N/A Sepsis Action Taken by Nursing No Action Required Laboratory Data Result diagrams: 03/22/22 11:37 03/22/22 11:37 Lab Results 03/22/22 03/22/22 03/22/22 Range/Units 11:37 11:37 11:37 WBC 7.69 (4.8-10.8) K/uL RBC 3.79 L (4.2-5.4) M/uL Hgb 11.6 L (12.0-16.0) g/dL POC Hgb (12.0-16.0) g/dl Hct 35.8 L (37-47) % POC Hct (37-47) % MCV 94.5 (80-100) fL MCH 30.6 (25-34) pg MCHC 32.4 (32-36) g/dL RDW Std Deviation 59.6 H (36.4-46.3) fL RDW Coeff of Miguelangel 17.4 H (11.5-14.5) % Plt Count 283 (130-400) K/uL MPV 8.5 (7.4-10.4) fL Immature Gran % (Auto) 0.3 % Neut % (Auto) 87.7 % Lymph % (Auto) 4.6 % Maries % (Auto) 7.3 % Eos % (Auto) 0.1 % Baso % (Auto) 0.0 % Neut # (Auto) 6.75 H (1.4-6.5) K/uL Lymph # (Auto) 0.35 L (1.2-3.4) K/uL Maries # (Auto) 0.56 (0.11-0.59) K/uL Eos # (Auto) 0.01 (0-0.5) K/uL Baso # (Auto) 0.00 (0-0.2) K/uL Immature Gran # (Auto) 0.02 (0.00-0.02) K/uL PT 11.4 (9.0-12.0) Seconds INR 1.1 (0.9-1.1) POC Sodium (135-144) mmol/L Sodium (136-145) mmol/L POC Potassium (3.3-5.0) mmol/L Potassium (3.5-5.1) mmol/L POC Chloride (101-112) mmol/L Chloride (98-107) mmol/L Carbon Dioxide (21-32) mmol/L POC Total CO2 (24-31) mmol/L Anion Gap (3-11) POC Anion Gap (16-25) mmol/L POC BUN (7-18) mg/dl BUN (6-23) mg/dl Creatinine (0.6-1.2) mg/dl POC Creatinine (0.6-1.3) mg/dl Est Cr Clr Drug Dosing ml/min Est GFR ( Amer) ml/min Est GFR (Non-Af Amer) ml/min BUN/Creatinine Ratio (10-20) Glucose (70-99(Fasting)) mg/dl POC Glucose (other) (70-99) mg/dl Calcium (8.5-10.1) mg/dl POC Ioniz Calcium Nico (1.12-1.32) mmol/l Total Bilirubin (0.2-1.0) mg/dl AST (13-39) U/L ALT (7-52) U/L Alkaline Phosphatase (34-104) U/L Troponin I High Sens 20.9 H (0-14) pg/ml Total Protein (6.0-8.3) gm/dl Albumin (3.4-5.0) gm/dl Globulin (2.5-4.0) gm/dl Albumin/Globulin Ratio (0.9-2) Lipase (11-82) U/L SARS-CoV-2, RNA, NAAT (NEGATIVE) 03/22/22 03/22/22 03/22/22 Range/Units 11:37 11:41 12:34 WBC (4.8-10.8) K/uL RBC (4.2-5.4) M/uL Hgb (12.0-16.0) g/dL POC Hgb 11.2 L (12.0-16.0) g/dl Hct (37-47) % POC Hct 33 L (37-47) % MCV (80-100) fL MCH (25-34) pg MCHC (32-36) g/dL RDW Std Deviation (36.4-46.3) fL RDW Coeff of Miguelangel (11.5-14.5) % Plt Count (130-400) K/uL MPV (7.4-10.4) fL Immature Gran % (Auto) % Neut % (Auto) % Lymph % (Auto) % Maries % (Auto) % Eos % (Auto) % Baso % (Auto) % Neut # (Auto) (1.4-6.5) K/uL Lymph # (Auto) (1.2-3.4) K/uL Maries # (Auto) (0.11-0.59) K/uL Eos # (Auto) (0-0.5) K/uL Baso # (Auto) (0-0.2) K/uL Immature Gran # (Auto) (0.00-0.02) K/uL PT (9.0-12.0) Seconds INR (0.9-1.1) POC Sodium 140 (135-144) mmol/L Sodium 138 (136-145) mmol/L POC Potassium 4.9 (3.3-5.0) mmol/L Potassium 5.0 (3.5-5.1) mmol/L POC Chloride 107 (101-112) mmol/L Chloride 107 (98-107) mmol/L Carbon Dioxide 23 (21-32) mmol/L POC Total CO2 22 L (24-31) mmol/L Anion Gap 8 (3-11) POC Anion Gap 16.0 (16-25) mmol/L POC BUN 39 H (7-18) mg/dl BUN 47 H (6-23) mg/dl Creatinine 1.22 H (0.6-1.2) mg/dl POC Creatinine 1.3 (0.6-1.3) mg/dl Est Cr Clr Drug Dosing 28.9 ml/min Est GFR ( Amer) 47.4 ml/min Est GFR (Non-Af Amer) 40.9 ml/min BUN/Creatinine Ratio 38.5 H (10-20) Glucose 241 H (70-99(Fasting)) mg/dl POC Glucose (other) 242 H (70-99) mg/dl Calcium 9.5 (8.5-10.1) mg/dl POC Ioniz Calcium Nico 1.18 (1.12-1.32) mmol/l Total Bilirubin 1.0 (0.2-1.0) mg/dl AST 12 L (13-39) U/L ALT 10 (7-52) U/L Alkaline Phosphatase 81 (34-104) U/L Troponin I High Sens (0-14) pg/ml Total Protein 6.3 (6.0-8.3) gm/dl Albumin 3.8 (3.4-5.0) gm/dl Globulin 2.5 (2.5-4.0) gm/dl Albumin/Globulin Ratio 1.5 (0.9-2) Lipase 29 (11-82) U/L SARS-CoV-2, RNA, NAAT NEGATIVE (NEGATIVE) 03/22/22 Range/Units 14:06 WBC (4.8-10.8) K/uL RBC (4.2-5.4) M/uL Hgb (12.0-16.0) g/dL POC Hgb (12.0-16.0) g/dl Hct (37-47) % POC Hct (37-47) % MCV (80-100) fL MCH (25-34) pg MCHC (32-36) g/dL RDW Std Deviation (36.4-46.3) fL RDW Coeff of Miguelangel (11.5-14.5) % Plt Count (130-400) K/uL MPV (7.4-10.4) fL Immature Gran % (Auto) % Neut % (Auto) % Lymph % (Auto) % Maries % (Auto) % Eos % (Auto) % Baso % (Auto) % Neut # (Auto) (1.4-6.5) K/uL Lymph # (Auto) (1.2-3.4) K/uL Maries # (Auto) (0.11-0.59) K/uL Eos # (Auto) (0-0.5) K/uL Baso # (Auto) (0-0.2) K/uL Immature Gran # (Auto) (0.00-0.02) K/uL PT (9.0-12.0) Seconds INR (0.9-1.1) POC Sodium (135-144) mmol/L Sodium (136-145) mmol/L POC Potassium (3.3-5.0) mmol/L Potassium (3.5-5.1) mmol/L POC Chloride (101-112) mmol/L Chloride (98-107) mmol/L Carbon Dioxide (21-32) mmol/L POC Total CO2 (24-31) mmol/L Anion Gap (3-11) POC Anion Gap (16-25) mmol/L POC BUN (7-18) mg/dl BUN (6-23) mg/dl Creatinine (0.6-1.2) mg/dl POC Creatinine (0.6-1.3) mg/dl Est Cr Clr Drug Dosing ml/min Est GFR ( Amer) ml/min Est GFR (Non-Af Amer) ml/min BUN/Creatinine Ratio (10-20) Glucose (70-99(Fasting)) mg/dl POC Glucose (other) (70-99) mg/dl Calcium (8.5-10.1) mg/dl POC Ioniz Calcium Nico (1.12-1.32) mmol/l Total Bilirubin (0.2-1.0) mg/dl AST (13-39) U/L ALT (7-52) U/L Alkaline Phosphatase (34-104) U/L Troponin I High Sens 21.1 H (0-14) pg/ml Total Protein (6.0-8.3) gm/dl Albumin (3.4-5.0) gm/dl Globulin (2.5-4.0) gm/dl Albumin/Globulin Ratio (0.9-2) Lipase (11-82) U/L SARS-CoV-2, RNA, NAAT (NEGATIVE) Administered Medications Discontinued Medications Sodium Chloride (Nss 1000ml) 1,000 mls @ 999 mls/hr IV .Q1H1M ONE Stop: 03/22/22 12:09 Last Infusion: 03/22/22 14:23 Dose: 0 mls/hr Documented by: [id number] Admin: 03/22/22 12:36 Dose: 999 mls/hr Documented by: [id number] Ceftriaxone Sodium (Rocephin) 1,000 mg in 50 mls @ 100 mls/hr IV NOW STA Stop: 03/22/22 13:28 Last Infusion: 03/22/22 14:22 Dose: 0 mls/hr Documented by: [id number] Admin: 03/22/22 13:10 Dose: 100 mls/hr Documented by: [id number] Ioversol (Optiray 320 125ml) 120 ml IV ONCE ONE Stop: 03/22/22 12:55 Last Admin: 03/22/22 12:54 Dose: 120 ml Documented by: [id number] Imaging Data Radiologist's Impression: Chest X-Ray 03/22/22 11:09 SINGLE VIEW CHEST CLINICAL HISTORY: Change in mental status. FINDINGS: An AP, portable, upright chest radiograph is compared to study dated 03/02/2022 and correlated with chest CT dated 12/16/2021. The patient is status post midline sternotomy. The heart is enlarged noting atherosclerotic calcification of the thoracic aorta. The pulmonary vasculature is noncongested. The lungs and pleural spaces are clear. No pneumothorax is seen. The skeletal structures are osteopenic. The bony thorax is grossly intact. IMPRESSION: Cardiomegaly with no active disease in the chest. ACT 112: Negative or not required by law. Electronically signed by: Rony Vera M.D. 03/22/2022 11:48 AM Abdomen/Pelvis CT 03/22/22 11:10 CT SCAN OF THE ABDOMEN AND PELVIS WITH IV CONTRAST CLINICAL HISTORY: Right lower quadrant abdominal pain COMPARISON STUDY: No priors. TECHNIQUE: Following the IV administration of 120 cc of Optiray 320, CT scan of the abdomen and pelvis is performed from the lung bases to the proximal femora. Images are reviewed in the axial, sagittal, and coronal planes. IV contrast was administered without complication. A dose lowering technique was utilized adhering to the principles of ALARA. The examination is degraded by streak artifact from the arms which could not be elevated above the abdomen as well as by motion artifact. FINDINGS: Lung bases: The patient is status post midline sternotomy. The heart is enlarged and without pericardial effusion. There are coronary artery calcifications. The lung bases are clear noting dependent scarring/atelectasis. Liver: The contrast-enhanced liver is normal in size, contour, and attenuation. There is no intrahepatic biliary ductal dilatation. The hepatic veins and portal veins are patent. Scattered hepatic cysts measure up to 3.8 cm. Gallbladder: Unremarkable. Spleen: Normal in size and attenuation. Pancreas: Atrophic and grossly unremarkable. Adrenal glands: Unremarkable. Kidneys: The contrast enhanced kidneys demonstrate cortical atrophy and are without hydronephrosis. Cortical enhancement appears heterogeneous. Urothelial thickening is noted in the renal pelvis bilaterally. Scattered cortical hypodensities likely represent cysts but cannot be definitively characterized due to the presence of IV contrast and significant streak artifact. Small renal sinus cysts are noted on the left. Abdominal vasculature: The abdominal aorta is normal in course and caliber noting moderate to advanced atherosclerotic calcification. Bowel: There is moderate colonic diverticulosis without CT evidence of acute diverticulitis. No bowel obstruction is identified. Moderate fecal retention is seen throughout the colon. The appendix is not identified and reported surgically absent. Peritoneum: There is no intraperitoneal free air or abdominal ascites. There is a small fat-containing umbilical hernia. Lymphadenopathy: None. Pelvic viscera: The bladder is decompressed and grossly unremarkable. The uterus is surgically absent. No adnexal lesion is seen. There are bilateral fat- containing inguinal hernias. There is an approximately 10 x 3 x 4.5 cm complex and peripherally enhancing fluid collection in the right gluteus holly muscle seen on image #411. This extends from the mid body of the muscle inferiorly and laterally posterior to the greater trochanter of the right proximal femur. A smaller but similar-appearing 5 x 1.5 cm fluid collection is seen within the right gluteus medius muscle on axial image #304. Skeletal structures: The skeletal structures are osteopenic there is moderate to advanced sacral spondylosis. Large hemangiomas are seen in the bodies of T12 and L1. No lytic or blastic lesions are seen. IMPRESSION: 1. Streak and motion compromised examination. 2. There is an approximately 10 x 3 x 4.5 cm complex peripherally enhancing fluid collection within the right gluteus holly muscle as detailed above. This is indeterminant etiology and chronicity, and could represent a seroma or hematoma. The sterility of this fluid cannot be assessed by imaging and infection/abscess would be impossible to exclude. Clinical correlation will be essential. 3. A smaller but similar-appearing fluid collection is seen within the right gluteus medius muscle and has the same differential. These collections may communicate. 4. Renal cortical enhancement appears heterogeneous and there is mild urothelial thickening present within the renal pelvis bilaterally. Correlate with clinical findings and urinalysis. 5. Cardiomegaly. 6. Moderate constipation. 7. Additional findings as above. ACT 112: Negative or not required by law. Electronically signed by: Rony Vera M.D. 03/22/2022 1:40 PM Head CTA 03/22/22 11:10 CT ANGIOGRAM OF THE BRAIN COMBO; CT ANGIOGRAM OF THE NECK CLINICAL HISTORY: Generalized weakness. Difficulty with speech and swallowing. COMPARISON STUDY: CT of the brain dated 02/27/2022. TECHNIQUE: Unenhanced axial CT scan of the brain is performed. Subsequently, following the IV administration of 120 of Optiray 320, CT angiogram of the head and neck was performed from the aortic arch to the vertex. Images are reviewed in the axial, sagittal, and coronal planes. 3-D MIPS images are created and assessed. IV contrast was administered without complication. All measurements were calculated based on NASCET criteria. A dose lowering technique was utilized adhering to the principles of ALARA. CT DOSE: 1246.92 mGy.cm FINDINGS: Brain parenchyma: There is age-related involutional change noting mild subcortical and periventricular microangiopathic disease. There is no hemorrhage, mass effect, or evidence of acute territorial ischemia by CT criteria. There is no evidence of enhancing mass lesion on the angiogram phase images. The ventricles, sulci, and cisterns are prominent secondary to involutional change. Vigil-white matter differentiation is preserved. No extra- axial fluid collection is seen. Thoracic aorta: Visualized portions of the thoracic aorta are normal in caliber. The aortic arch demonstrates standard 3-vessel anatomy. Right carotid arterial system: The right common carotid artery is widely patent, as are the right internal and external carotid arteries. Calcified plaque is noted in the carotid bulb. The right internal carotid artery demonstrates a bead ed appearance suggesting fibromuscular dysplasia. Left carotid arterial system: The left common carotid artery is widely patent, as are the left internal and external carotid arteries. Mild calcified plaque is noted in the carotid bulb. The left internal carotid artery demonstrates a beaded appearance suggesting fibromuscular dysplasia. Vertebral arteries: The vertebral arteries are widely patent bilaterally and codominant. Subclavian arteries: Widely patent bilaterally. Intracranial vasculature: The internal carotid arteries are patent at the skull base, as are the anterior and middle cerebral arteries bilaterally. The vertebrobasilar system and posterior cerebral arteries are widely patent. The vertebral arteries are codominant. There is no aneurysm, high-grade stenosis, or focal vessel cut off seen throughout the intracranial circulation. Jugular veins: Patent bilaterally. Dural sinuses: Patent. Lung apices: Partially visualized upper lobe lung parenchyma appears clear. Soft tissues: The visualized pharyngeal soft tissues are normal in appearance noting angiographic phase technique. The oropharyngeal airway appears widely patent. The salivary and thyroid glands are normal in appearance. No cervical lymphadenopathy is seen. Skeletal structures: The calvarium appears intact. The cervical spine is maintained noting mild spondylosis. There is near complete bony fusion of the C2 and C3 vertebral bodies. No lytic or blastic lesion is identified. Orbits: The skeletal structures are osteopenic. The bony orbits are intact. Orbital contents are normal as visualized noting bilateral ocular lens implants. Sinuses and mastoids: Postsurgical changes noted involving the maxillary antra. There is complete opacification of left maxillary sinus. Mild to moderate mucosal thickening is noted in the right maxillary antrum. Thickening and sclerosis of the maxillary sinus nieto indicates chronicity. Mucosal thickening is also noted in the ethmoid sinuses. The frontal and sphenoid sinuses are clear. There are trace mastoid effusions. IMPRESSION: 1. There is no hemorrhage, mass effect, or evidence of acute territorial ischemia by CT criteria. 2. Unremarkable CT angiogram of the brain. 3. Both internal carotid arteries demonstrate a beaded appearance typical for fibromuscular dysplasia. 4. Otherwise unremarkable CT angiogram of the neck. The carotid and vertebral arteries are patent bilaterally. ACT 112: Negative or not required by law. Electronically signed by: Rony Vera M.D. 03/22/2022 1:24 PM Neck CTA 03/22/22 11:10 CT ANGIOGRAM OF THE BRAIN COMBO; CT ANGIOGRAM OF THE NECK CLINICAL HISTORY: Generalized weakness. Difficulty with speech and swallowing. COMPARISON STUDY: CT of the brain dated 02/27/2022. TECHNIQUE: Unenhanced axial CT scan of the brain is performed. Subsequently, following the IV administration of 120 of Optiray 320, CT angiogram of the head and neck was performed from the aortic arch to the vertex. Images are reviewed in the axial, sagittal, and coronal planes. 3-D MIPS images are created and assessed. IV contrast was administered without complication. All measurements were calculated based on NASCET criteria. A dose lowering technique was utilized adhering to the principles of ALARA. CT DOSE: 1246.92 mGy.cm FINDINGS: Brain parenchyma: There is age-related involutional change noting mild subcortical and periventricular microangiopathic disease. There is no hemorrhage, mass effect, or evidence of acute territorial ischemia by CT criteria. There is no evidence of enhancing mass lesion on the angiogram phase images. The ventricles, sulci, and cisterns are prominent secondary to involutional change. Vigil-white matter differentiation is preserved. No extra- axial fluid collection is seen. Thoracic aorta: Visualized portions of the thoracic aorta are normal in caliber. The aortic arch demonstrates standard 3-vessel anatomy. Right carotid arterial system: The right common carotid artery is widely patent, as are the right internal and external carotid arteries. Calcified plaque is noted in the carotid bulb. The right internal carotid artery demonstrates a beaded appearance suggesting fibromuscular dysplasia. Left carotid arterial system: The left common carotid artery is widely patent, as are the left internal and external carotid arteries. Mild calcified plaque is noted in the carotid bulb. The left internal carotid artery demonstrates a beaded appearance suggesting fibromuscular dysplasia. Vertebral arteries: The vertebral arteries are widely patent bilaterally and codominant. Subclavian arteries: Widely patent bilaterally. Intracranial vasculature: The internal carotid arteries are patent at the skull base, as are the anterior and middle cerebral arteries bilaterally. The vertebrobasilar system and posterior cerebral arteries are widely patent. The vertebral arteries are codominant. There is no aneurysm, high-grade stenosis, or focal vessel cut off seen throughout the intracranial circulation. Jugular veins: Patent bilaterally. Dural sinuses: Patent. Lung apices: Partially visualized upper lobe lung parenchyma appears clear. Soft tissues: The visualized pharyngeal soft tissues are normal in appearance noting angiographic phase technique. The oropharyngeal airway appears widely patent. The salivary and thyroid glands are normal in appearance. No cervical lymphadenopathy is seen. Skeletal structures: The calvarium appears intact. The cervical spine is maintained noting mild spondylosis. There is near complete bony fusion of the C2 and C3 vertebral bodies. No lytic or blastic lesion is identified. Orbits: The skeletal structures are osteopenic. The bony orbits are intact. Orbital contents are normal as visualized noting bilateral ocular lens implants. Sinuses and mastoids: Postsurgical changes noted involving the maxillary antra. There is complete opacification of left maxillary sinus. Mild to moderate mucosal thickening is noted in the right maxillary antrum. Thickening and sclerosis of the maxillary sinus nieto indicates chronicity. Mucosal thickening is also noted in the ethmoid sinuses. The frontal and sphenoid sinuses are clear. There are trace mastoid effusions. IMPRESSION: 1. There is no hemorrhage, mass effect, or evidence of acute territorial ischemia by CT criteria. 2. Unremarkable CT angiogram of the brain. 3. Both internal carotid arteries demonstrate a beaded appearance typical for fibromuscular dysplasia. 4. Otherwise unremarkable CT angiogram of the neck. The carotid and vertebral arteries are patent bilaterally. ACT 112: Negative or not required by law. Electronically signed by: Rony Vera M.D. 03/22/2022 1:24 PM Brain MRI 03/22/22 14:55 MRI OF THE BRAIN WITHOUT IV CONTRAST CLINICAL HISTORY: Strokelike symptoms. Generalized weakness. Difficulty swallowing. COMPARISON STUDY: CT of the brain dated 03/22/2022. TECHNIQUE: MRI of the brain was performed utilizing various T1 and T2-weighted sequences in the axial, sagittal, and coronal planes. IV contrast was not administered for this examination. The examination is modestly degraded by motion artifact. FINDINGS: Brain parenchyma: There is age-related involutional change noting mild subcortical and periventricular microangiopathic disease. There is no hemorrhage or mass effect. There is no restricted diffusion to suggest acute ischemia. Vigil-white matter differentiation is preserved. No extra-axial fluid collection is seen. The cerebellar tonsils are normal in configuration. Ventricles, sulci, and cisterns: Prominent secondary to involutional change. Pituitary and sella: Unremarkable. Intracranial vasculature: Normal flow voids are maintained at the skull base. Orbits: The bony orbits are grossly intact. Orbital contents are normal in appearance noting bilateral ocular lens implants. Sinuses and mastoids: There is near complete opacification of the left maxillary antrum. Moderate mucosal thickening is seen within the ethmoid sinuses and the right maxillary sinus. There is a small left mastoid effusion. Calvarium: Unremarkable. Cervical cord: Partially visualized cervical spinal cord is normal in morphology and signal intensity. IMPRESSION: No acute intracranial abnormality. ACT 112: Negative or not required by law. Electronically signed by: Royn Vera M.D. 03/22/2022 4:36 PM Discharge Plan Visit Data Chief Complaint: Illness Stated Complaint: DIFF SWALLOWING ED Provider: Cal Menon Discharge Problem: Weakness, UTI (urinary tract infection), Anemia, Elevated troponin Discharge Instructions Interventions: ED Discharge Assessment Last Done: 03/22/22 15:59 Discharge Problem: UTI (urinary tract infection) Qualifiers: Urinary tract infection type: site unspecified Hematuria presence: with hematuria Qualified Code(s): N39.0 - Urinary tract infection, site not specified Anemia Qualifiers: Anemia type: unspecified type Qualified Code(s): D64.9 - Anemia, unspecified
--- NOTE | 2022-03-22 11:50 | XRay Report ---
SINGLE VIEW CHEST CLINICAL HISTORY: Change in mental status. FINDINGS: An AP, portable, upright chest radiograph is compared to study dated 03/02/2022 and correlate d with chest CT dated 12/16/2021. The patient is status post midline sternotomy. The heart is enlarged noting atherosclerotic calcification of the thoracic aorta. The pulmonary vasculature is noncongeste d. The lungs and pleural spaces are clear. No pneumothorax is seen. The skeletal structures are osteo penic. The bony thorax is grossly intact. IMPRESSION: Cardiomegaly with no active disease in the chest. ACT 112: Negative or not required by law. Electronically signed by: Rony Vera M.D. 03/22/2022 11:48 AM
[2022-03-22 11:52] LABS: Eosinophils # (auto) 0.01 K/uL (0-0.5); Eosinophils % (auto) 0.1 %; Hematocrit (blood only) 35.8 % (37-47); Hemoglobin 11.6 g/dL (12.0-16.0); Immature Granulocytes # (auto) 0.02 K/uL (0.00-0.02); Immature Granulocytes % (auto) 0.3 %; Lymphocytes # (auto) 0.35 K/uL (1.2-3.4); Lymphocytes % (auto) 4.6 %; Mean Corpuscular Hemoglobin 30.6 pg (25-34); Mean Corpuscular Hgb Conc 32.4 g/dL (32-36); Mean Corpuscular Volume 94.5 fL (80-100); Mean Platelet Volume 8.5 fL (7.4-10.4); Monocytes # (auto) 0.56 K/uL (0.11-0.59); Monocytes % (auto) 7.3 %; Neutrophils # (auto) 6.75 K/uL (1.4-6.5); Neutrophils % (auto) 87.7 %; Platelet Count 283 K/uL (130-400); RDW Coefficient of Variation 17.4 % (11.5-14.5); RDW Standard Deviation 59.6 fL (36.4-46.3); Red Blood Count 3.79 M/uL (4.2-5.4); White Blood Count 7.69 K/uL (4.8-10.8)
[2022-03-22 11:54] LABS: iSTAT Creatinine 1.3 mg/dl (0.6-1.3); iSTAT Hemoglobin 11.2 g/dl (12.0-16.0); iSTAT Ionized Calcium 1.18 mmol/l (1.12-1.32); iSTAT Potassium 4.9 mmol/L (3.3-5.0)
[2022-03-22 12:01] LABS: INR 1.1 (0.9-1.1); Prothrombin Time 11.4 Seconds (9.0-12.0)
[2022-03-22 12:20] LABS: Albumin Globulin Ratio 1.5 (0.9-2); Albumin Level 3.8 gm/dl (3.4-5.0); BUN Creatinine Ratio 38.5 (10-20); Calcium 9.5 mg/dl (8.5-10.1); Creatinine Clr Calc Pharmacy 28.9 ml/min; Est GFR (African American) 47.4 ml/min; Est GFR (Non-African American) 40.9 ml/min; Globulin 2.5 gm/dl (2.5-4.0); Total Protein 6.3 gm/dl (6.0-8.3)
[2022-03-22 12:23] LABS: Appearance Urine Clear (Clear); Bacteria Urine Automated 1+ (Negative); Bilirubin Urine Negative (Negative); Blood Urine Negative (Negative); Color Urine Dark Yellow; Epithelial Cell Urine Auto >30 /lpf (0-5); Glucose Urine UA Trace (Negative); Ketones Urine 1+ (Negative); Leukocyte Esterase Urine 2+ (Negative); Nitrite Urine Negative (Negative); Protein Urine Trace (Negative); Specific Gravity Urine 1.025 (1.000-1.030); Urobilinogen Urine Negative (Negative); pH Urine 5.5 (4.5-7.5)
[2022-03-22 12:31] LABS: Mucus Urine Present (None Prsent)
[2022-03-22 12:33] LABS: RBC Urine Automated 0-4 /hpf (0-4)
[2022-03-22] MEDS ORDERED: OPTIRAY 320 125ml IV ONE (12:54)
[2022-03-22] MEDS ORDERED: cefTRIAXone SODIUM 1,000 MG/50 ML BAG IV STA (12:59)
--- NOTE | 2022-03-22 13:26 | CT Scan Report ---
CT ANGIOGRAM OF THE BRAIN COMBO; CT ANGIOGRAM OF THE NECK CLINICAL HISTORY: Generalized weakness. Difficulty with speech and swallowing. COMPARISON STUDY: CT of the brain dated 02/27/2022. TECHNIQUE: Unenhanced axial CT scan of the brain is performed. Subsequently, following the IV adminis tration of 120 of Optiray 320, CT angiogram of the head and neck was performed from the aortic arch t o the vertex. Images are reviewed in the axial, sagittal, and coronal planes. 3-D MIPS images are cre ated and assessed. IV contrast was administered without complication. All measurements were calculate d based on NASCET criteria. A dose lowering technique was utilized adhering to the principles of ALA RA. CT DOSE: 1246.92 mGy.cm FINDINGS: Brain parenchyma: There is age-related involutional change noting mild subcortical and periventricula r microangiopathic disease. There is no hemorrhage, mass effect, or evidence of acute territorial isc hemia by CT criteria. There is no evidence of enhancing mass lesion on the angiogram phase images. Th e ventricles, sulci, and cisterns are prominent secondary to involutional change. Vigil-white matter d ifferentiation is preserved. No extra-axial fluid collection is seen. Thoracic aorta: Visualized portions of the thoracic aorta are normal in caliber. The aortic arch demo nstrates standard 3-vessel anatomy. Right carotid arterial system: The right common carotid artery is widely patent, as are the right int ernal and external carotid arteries. Calcified plaque is noted in the carotid bulb. The right interna l carotid artery demonstrates a beaded appearance suggesting fibromuscular dysplasia. Left carotid arterial system: The left common carotid artery is widely patent, as are the left technology internship al and external carotid arteries. Mild calcified plaque is noted in the carotid bulb. The left technology internship al carotid artery demonstrates a beaded appearance suggesting fibromuscular dysplasia. Vertebral arteries: The vertebral arteries are widely patent bilaterally and codominant. Subclavian arteries: Widely patent bilaterally. Intracranial vasculature: The internal carotid arteries are patent at the skull base, as are the ante rior and middle cerebral arteries bilaterally. The vertebrobasilar system and posterior cerebral honey yvette are widely patent. The vertebral arteries are codominant. There is no aneurysm, high-grade steno sis, or focal vessel cut off seen throughout the intracranial circulation. Jugular veins: Patent bilaterally. Dural sinuses: Patent. Lung apices: Partially visualized upper lobe lung parenchyma appears clear. Soft tissues: The visualized pharyngeal soft tissues are normal in appearance noting angiographic pha se technique. The oropharyngeal airway appears widely patent. The salivary and thyroid glands are nor mal in appearance. No cervical lymphadenopathy is seen. Skeletal structures: The calvarium appears intact. The cervical spine is maintained noting mild spond ylosis. There is near complete bony fusion of the C2 and C3 vertebral bodies. No lytic or blastic les ion is identified. Orbits: The skeletal structures are osteopenic. The bony orbits are intact. Orbital contents are norm al as visualized noting bilateral ocular lens implants. Sinuses and mastoids: Postsurgical changes noted involving the maxillary antra. There is complete opa cification of left maxillary sinus. Mild to moderate mucosal thickening is noted in the right maxilla ry antrum. Thickening and sclerosis of the maxillary sinus niteo indicates chronicity. Mucosal thicke janusz is also noted in the ethmoid sinuses. The frontal and sphenoid sinuses are clear. There are trac e mastoid effusions. IMPRESSION: 1. There is no hemorrhage, mass effect, or evidence of acute territorial ischemia by CT criteria. 2. Unremarkable CT angiogram of the brain. 3. Both internal carotid arteries demonstrate a beaded appearance typical for fibromuscular dysplasia . 4. Otherwise unremarkable CT angiogram of the neck. The carotid and vertebral arteries are patent leny aterally. ACT 112: Negative or not required by law. Electronically signed by: Rony Vera M.D. 03/22/2022 1:24 PM
--- NOTE | 2022-03-22 13:42 | CT Scan Report ---
CT SCAN OF THE ABDOMEN AND PELVIS WITH IV CONTRAST CLINICAL HISTORY: Right lower quadrant abdominal pain COMPARISON STUDY: No priors. TECHNIQUE: Following the IV administration of 120 cc of Optiray 320, CT scan of the abdomen and pelv is is performed from the lung bases to the proximal femora. Images are reviewed in the axial, sagitta l, and coronal planes. IV contrast was administered without complication. A dose lowering technique w as utilized adhering to the principles of ALARA. The examination is degraded by streak artifact from the arms which could not be elevated above the abdomen as well as by motion artifact. FINDINGS: Lung bases: The patient is status post midline sternotomy. The heart is enlarged and without pericard ial effusion. There are coronary artery calcifications. The lung bases are clear noting dependent sca rring/atelectasis. Liver: The contrast-enhanced liver is normal in size, contour, and attenuation. There is no intrahepa tic biliary ductal dilatation. The hepatic veins and portal veins are patent. Scattered hepatic cysts measure up to 3.8 cm. Gallbladder: Unremarkable. Spleen: Normal in size and attenuation. Pancreas: Atrophic and grossly unremarkable. Adrenal glands: Unremarkable. Kidneys: The contrast enhanced kidneys demonstrate cortical atrophy and are without hydronephrosis. C ortical enhancement appears heterogeneous. Urothelial thickening is noted in the renal pelvis bilater ally. Scattered cortical hypodensities likely represent cysts but cannot be definitively characterize d due to the presence of IV contrast and significant streak artifact. Small renal sinus cysts are not ed on the left. Abdominal vasculature: The abdominal aorta is normal in course and caliber noting moderate to advance d atherosclerotic calcification. Bowel: There is moderate colonic diverticulosis without CT evidence of acute diverticulitis. No bowel obstruction is identified. Moderate fecal retention is seen throughout the colon. The appendix is n ot identified and reported surgically absent. Peritoneum: There is no intraperitoneal free air or abdominal ascites. There is a small fat-containin g umbilical hernia. Lymphadenopathy: None. Pelvic viscera: The bladder is decompressed and grossly unremarkable. The uterus is surgically absent . No adnexal lesion is seen. There are bilateral fat-containing inguinal hernias. There is an approxi mately 10 x 3 x 4.5 cm complex and peripherally enhancing fluid collection in the right gluteus maxim us muscle seen on image #[id number]. This extends from the mid body of the muscle inferiorly and laterally p osterior to the greater trochanter of the right proximal femur. A smaller but similar-appearing 5 x 1 .5 cm fluid collection is seen within the right gluteus medius muscle on axial image #[id number]. Skeletal structures: The skeletal structures are osteopenic there is moderate to advanced sacral spon dylosis. Large hemangiomas are seen in the bodies of T12 and L1. No lytic or blastic lesions are seen . IMPRESSION: 1. Streak and motion compromised examination. 2. There is an approximately 10 x 3 x 4.5 cm complex peripherally enhancing fluid collection within t he right gluteus holly muscle as detailed above. This is indeterminant etiology and chronicity, and could represent a seroma or hematoma. The sterility of this fluid cannot be assessed by imaging and infection/abscess would be impossible to exclude. Clinical correlation will be essential. 3. A smaller but similar-appearing fluid collection is seen within the right gluteus medius muscle an d has the same differential. These collections may communicate. 4. Renal cortical enhancement appears heterogeneous and there is mild urothelial thickening present w ithin the renal pelvis bilaterally. Correlate with clinical findings and urinalysis. 5. Cardiomegaly. 6. Moderate constipation. 7. Additional findings as above. ACT 112: Negative or not required by law. Electronically signed by: Rony Vera M.D. 03/22/2022 1:40 PM
--- NOTE | 2022-03-22 14:51 | Electrocardiogram Report ---
Test Reason : Blood Pressure : / mmHG Vent. Rate : 078 BPM Atrial Rate : 078 BPM P-R Int : 126 ms QRS Dur : 080 ms QT Int : 408 ms P-R-T Axes : 093 007 117 degrees QTc Int : 465 ms Poor data quality, interpretation may be adversely affected Ectopic atrial vs. Sinus rhythm with Premature ventricular complexes Left ventricular hypertrophy with repolarization abnormality Abnormal ECG When compared with ECG of 28-FEB-2022 06:46, Premature ventricular complexes now present Otherwise no significant change Confirmed by Gaston Davis ([id number]) on 03/22/2022 2:51:38 PM Referred By: REFERRED SELF Confirmed By:Gaston Davis
--- NOTE | 2022-03-22 16:05 | XRay Report ---
BONY ORBITS 3 VIEWS CLINICAL HISTORY: MRI clearance. FINDINGS: 3 views of the bony orbits are obtained. No prior studies are available for comparison at t he time of dictation. There is no radiodense/metallic foreign body seen in the region of the bony orb its. The bony orbits are intact as imaged. There is opacification of the left maxillary antrum. The m astoid air cells appear clear. The imaged calvarium appears intact. Postoperative change is seen invo lving the maxillary sinuses. Cerclage wires are noted on both sides of the mandible. IMPRESSION: There is no radiodense/metallic foreign body seen in the region of the bony orbits. ACT 112: Negative or not required by law. Electronically signed by: Rony Vera M.D. 03/22/2022 4:02 PM
--- NOTE | 2022-03-22 16:38 | Magnetic Resonance Report ---
MRI OF THE BRAIN WITHOUT IV CONTRAST CLINICAL HISTORY: Strokelike symptoms. Generalized weakness. Difficulty swallowing. COMPARISON STUDY: CT of the brain dated 03/22/2022. TECHNIQUE: MRI of the brain was performed utilizing various T1 and T2-weighted sequences in the axial , sagittal, and coronal planes. IV contrast was not administered for this examination. The examinatio n is modestly degraded by motion artifact. FINDINGS: Brain parenchyma: There is age-related involutional change noting mild subcortical and periventricula r microangiopathic disease. There is no hemorrhage or mass effect. There is no restricted diffusion t o suggest acute ischemia. Vigil-white matter differentiation is preserved. No extra-axial fluid collec tion is seen. The cerebellar tonsils are normal in configuration. Ventricles, sulci, and cisterns: Prominent secondary to involutional change. Pituitary and sella: Unremarkable. Intracranial vasculature: Normal flow voids are maintained at the skull base. Orbits: The bony orbits are grossly intact. Orbital contents are normal in appearance noting bilatera l ocular lens implants. Sinuses and mastoids: There is near complete opacification of the left maxillary antrum. Moderate muc osal thickening is seen within the ethmoid sinuses and the right maxillary sinus. There is a small le ft mastoid effusion. Calvarium: Unremarkable. Cervical cord: Partially visualized cervical spinal cord is normal in morphology and signal intensity . IMPRESSION: No acute intracranial abnormality. ACT 112: Negative or not required by law. Electronically signed by: Rony Vera M.D. 03/22/2022 4:36 PM
[2022-03-22] MEDS ORDERED: traZODone HCL 50 MG TAB PO PRN (16:52)
[2022-03-22] MEDS ORDERED: ALBUT/IPRATROP 3MG/0.5MG NEB 3 ML VIAL INH PRN (16:52)
[2022-03-22] MEDS ORDERED: SODIUM CHLORIDE 0.9% 1000ML 1,000 ML IV SCH (16:52)
[2022-03-22] MEDS ORDERED: ACETAMINOPHEN 325 MG TAB PO PRN (16:52)
[2022-03-22] MEDS ORDERED: ALBUTEROL HFA 8 GM INHALER INH PRN (16:52)
--- NOTE | 2022-03-22 17:36 | History & Physical Report ---
Date of Service March 22, 2022 Assessment & Plan (1) Weakness: Plan: 81 year old female with history of DM, HTN, CKD 3, anemia, PE/DVT on Eliquis, Asthma, Hyponatremia presenting with weakness, garbled speech, confusion, dysphagia. GENERALIZED WEAKNESS LIKELY FROM DEHYDRATION, POOR ORAL INTAKE D5NSS Speech therapy eval FROM URINARY TRACT INFECTION: Urine culture: Pending Ceftriaxone IV ordered POSSIBLE MYASTHENIA GRAVIS? (+) dysphagia per Speech Therapist in Center Care discussed with Neurologist Dr. Hewitt Acetylcholine receptor antibody ordered NIF test performed at bedside -30, okay per respiratory therapist NIF every [address] head: No acute process CT angiogram head and neck: Unrevealing Brain MRI: No acute CVA DIABETES TYPE 2 Insulin sliding scale HYPERTENSION Oral BP meds on hold for now Hydralazine as needed ACUTE KIDNEY INJURY ON CKD STAGE III Creatinine 1.3, baseline 0.9 IV fluids as above BMP daily CHRONIC PE, LEFT DVT On Eliquis Lovenox, renally adjusted, while p.o. meds on hold ASTHMA Continue Breo HYPONATREMIA Hold urea, ethacrynic acid Monitor daily DVT prophylaxis Lovenox subcutaneous CODE STATUS DNR/DNI per previous admission 2 weeks ago Tried to call patient's supply person'n-[id number] answer Voicemail left requesting callback Admission and Anticipated Discharge Date Admission Date: March 22, 2022 History of Present Illness Chief Complaint: weakness, garbled speech, confusion, dysphagia Primary Care Provider: Letitia Nam DO 81 year old female with history of DM, HTN, CKD 3, anemia, PE/DVT on Eliquis, Asthma, Hyponatremia presenting with weakness, garbled speech, confusion, dysphagia. Patient recently admitted to [facility] for weakness, hyponatremia and was subsequently transferred to [facility]. Apparently, patient's weakness did not improve while at [facility]. She was then transferred to [facility] Today, patient was noted to have "garbled speech", also failed swallow evaluation by speech therapist, and was also confused. She was then brought to [facility]. CT head, CT angio: unrevealing Brain MRI: unrevealing crea increased at 1.2 UA: possible UTI CXR: no infiltrates On exam, patient seen sleeping, drowsy. Oriented to person and place. States she feels washed out, also has productive cough. Denies inability to swallow saliva Denies focal weakness or numbness Appetite is poor No other symptoms Allergies Allergy/AdvReac Type Severity Reaction Status Date / Time sitagliptin Allergy Severe ANAPHYLAXIS Verified 03/22/22 13:14 empagliflozin Allergy Intermediate Blister Verified 03/22/22 13:14 [From Jardiance] furosemide Allergy Intermediate rash from Verified 03/22/22 13:14 "GENERIC" lasix hydrochlorothiazide Allergy Intermediate Rash Verified 03/22/22 13:14 Sulfa (Sulfonamide Allergy Intermediate PATEINT Verified 03/22/22 13:14 Antibiotics) HAS TOLERATED LASIX metoprolol Allergy Unknown ON MED LIST Verified 03/22/22 13:14 Penicillins Allergy Unknown Unknown Verified 03/22/22 13:14 codeine AdvReac Intermediate Confusion Verified 03/22/22 13:14 fenofibrate AdvReac Intermediate Muscle Pain Verified 03/22/22 13:14 prednisone AdvReac Intermediate delerium Verified 03/22/22 13:14 Xoxermh-SEC-IpB Reductase AdvReac Intermediate elevated ck Verified 03/22/22 13:14 Inhibitor [Elcezvo-Phq-Zyn Reductase Inhibitor] Home Medications Medication Instructions Recorded Confirmed Type albuterol sulfate 90 mcg/actuation 2 puff INHALATION BID PRN 04/25/19 03/22/22 History aerosol inhaler carvedilol 6.25 mg tablet 3.125 mg PO QPM 04/25/19 03/22/22 History carvedilol 6.25 mg tablet 6.25 mg PO QAM 04/25/19 03/22/22 History multivitamin 2 tab PO QAM 04/25/19 03/22/22 History repaglinide 1 mg tablet 1 mg PO TID 04/25/19 03/22/22 History trazodone 50 mg tablet 50 mg PO HS PRN 04/25/19 03/22/22 History budesonide 0.5 mg/2 mL suspension 0.5 mg INHALATION BID 12/16/21 03/22/22 History for nebulization diclofenac sodium 1 % topical gel 2 g TOPICAL QID PRN 12/16/21 03/22/22 History empagliflozin 10 mg tablet 10 mg PO QAM 12/16/21 03/22/22 History (Jardiance) fluoxetine 40 mg capsule 40 mg PO QAM 12/16/21 03/22/22 History fluticasone propionate 230 2 puff INHALATION BID 12/16/21 03/22/22 History mcg-salmeterol 21 mcg/actuation HFA inhaler (Advair HFA) glucosamine-chondroitin 250 mg-200 1 tab PO QAM 12/16/21 03/22/22 History mg tablet (Osteo Bi-Flex) ipratropium 0.5 mg-albuterol 3 mg 3 ml INHALATION TID PRN 12/16/21 03/22/22 History (2.5 mg base)/3 mL nebulization soln levocetirizine 5 mg tablet 5 mg PO HS 12/16/21 03/22/22 History metformin 500 mg tablet,extended 500 mg PO BID 12/16/21 03/22/22 History release 24 hr tiotropium bromide 2.5 2 puff INHALATION QAM 12/16/21 03/22/22 History mcg/actuation mist for inhalation (Spiriva Respimat) lisinopril 10 mg tablet 5 mg PO BID #0 tab 12/18/21 03/22/22 Rx apixaban 5 mg tablet (Eliquis) 5 mg PO BID 01/30/22 03/22/22 History aspirin 81 mg tablet,delayed 81 mg PO QAM 01/30/22 03/22/22 History release ethacrynic acid 25 mg tablet 25 mg PO QAM 01/30/22 03/22/22 History montelukast 10 mg tablet 10 mg PO QAM 01/30/22 03/22/22 History albuterol sulfate 2.5 mg INHALATION QID PRN 02/27/22 03/22/22 History gabapentin 100 mg capsule 100 mg PO BID 02/27/22 03/22/22 History docusate sodium 100 mg capsule 100 mg PO BID 30 Days #60 cap 03/06/22 03/22/22 Rx ethacrynic acid 25 mg tablet 50 mg PO DAILY 30 Days #60 tab 03/06/22 03/22/22 Rx (Edecrin) potassium chloride 10 mEq 10 meq PO DAILY 30 Days #30 tab 03/06/22 03/22/22 Rx tablet,extended release(part/cryst) urea 15 gram oral powder packet 15 g PO BID 30 Days ea 03/06/22 03/22/22 Rx (Ure-Na) Past Med/Surg History Medical History (Updated 03/22/22 @ 17:15 by Cal Menon, DO) Aortic valve insufficiency Asthma Carotid artery stenosis Chronic deep vein thrombosis (DVT) Chronic pulmonary embolism CKD (chronic kidney disease), stage III Diabetes mellitus, type II HTN (hypertension) Hyperlipidemia Irritable colon Osteoporosis 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) Surgical History (Updated 02/27/22 @ 14:45 by Ruthie Durant PA-C) History of colonoscopy Hx of total knee arthroplasty Family History Other Cancer Hypertension Social History (Updated 02/27/22 @ 14:46 by Ruthie Durant PA-C) Smoking Status: Never smoker Second Hand Exposure: No; Hx Alcohol Use: No Hx Substance Use: No Preferred Language: Bermudian Communication Ability: Impaired Buffing Machine Operator Semiautomatic Required: No Beliefs That Will Affect Care: None marital status: / Current Living Situation: Residential Current Living Situation Comment: Pts grandson lives with her How many Children do You have: 1 Feels Safe at Home: Declines to Answer Assistive Devices: Glasses and Walker Review of Systems Review of Systems: all noted and negative except for above Physical Exam Physical Exam: General- oriented x 2, not in distress, speaks in shortness sentences with no effort or accessory muscle use appears weak Head- atraumatic Eyes- PERRL, EOMI, anicteric ENT- (+) severely dry oral mucosa, thrush Neck- supple, no JVD, no adenopathy, no thyromegaly; carotids +2/2, no bruits appreciated Lungs- clear to auscultation bilaterally, no rales/wheezes Heart- normal rate, regular rhythm; no murmur, no gallop, no rub appreciated Abdomen- normal bowel sounds, nondistended, soft, nontender, no masses or hepatosplenomegaly Extremities- no pretibial edema, no calf tenderness; peripheral pulses intact Neuro-drowsy, oriented x 2; CN 2-12 grossly intact; motor 5/5 bilaterally;sensation 100% on all extremities; no other gross focal neurologic deficits Skin- warm & dry Results & Data Results & Data ([facility]) Vital Signs (Past 12 Hours) Vital Signs Temp Pulse Pulse Resp BP BP BP 03/22/22 17:09 36.6 C 80 20 150/65 H 03/22/22 15:59 36.7 C 89 18 133/61 03/22/22 14:00 83 18 132/51 L 03/22/22 12:00 76 22 144/55 H 03/22/22 11:03 36.8 C 89 22 129/71 Pulse Ox 03/22/22 17:09 99 03/22/22 15:59 97 03/22/22 14:00 99 03/22/22 12:00 99 03/22/22 11:03 99 all noted and reviewed including below Code Status & VTE Plan VTE Prophylaxis Plan VTE Prophylaxis will be ordered: Yes
[2022-03-22] MEDS ORDERED: CARBOHYDRATES FOR HYPOGLYCEMIA PO PRN (18:08)
[2022-03-22] MEDS ORDERED: hydrALAZINE HCL 20 MG/ML VIAL IV PRN (18:08)
[2022-03-22] MEDS ORDERED: GLUCOSE 40% GEL 15 GM TUBE PO PRN (18:08)
[2022-03-22] MEDS ORDERED: GLUCOSE 10 TABS/TUBE PO PRN (18:08)
[2022-03-22] MEDS ORDERED: DEXTROSE 50% 50 ML SYRINGE IV PRN (18:08)
[2022-03-22] MEDS ORDERED: GLUCAGON FOR INJ 1 MG VIAL SQ PRN (18:08)
[2022-03-22] MEDS: D5W AND NSS 1,000 ML IV SCH (18:27)
[2022-03-22] MEDS: BUDESONIDE 0.5 MG/2 ML VIAL (PULMICORT) INH SCH (19:50)
[2022-03-22] MEDS ORDERED: APIXABAN 5 MG TABLET PO SCH (21:00)
[2022-03-22] MEDS ORDERED: INSULIN ASPART PER UNIT SC SCH (21:00)
[2022-03-22] MEDS: GABAPENTIN 100 MG CAP PO SCH (21:35)
[2022-03-22] MEDS: carvediloL 3.125 MG TAB PO SCH (21:35)
[2022-03-22] MEDS: lisinopril 5 MG TAB PO SCH (21:35)
[2022-03-22] MEDS: DOCUSATE SODIUM 100 MG CAP PO SCH (21:35)
[2022-03-22] MEDS: LEVOCETIRIZINE 5 MG SCH (23:06)
[2022-03-23] MEDS: INSULIN ASPART PER UNIT SC SCH ×4 (00:52→18:22)
[2022-03-23] MEDS: D5W AND NSS 1,000 ML IV SCH ×2 (03:05→14:44)
[2022-03-23 05:42] LABS: Eosinophils # (auto) 0.02 K/uL (0-0.5); Eosinophils % (auto) 0.4 %; Hematocrit (blood only) 30.6 % (37-47); Hemoglobin 9.9 g/dL (12.0-16.0); Immature Granulocytes # (auto) 0.02 K/uL (0.00-0.02); Immature Granulocytes % (auto) 0.4 %; Lymphocytes # (auto) 0.28 K/uL (1.2-3.4); Lymphocytes % (auto) 5.3 %; Mean Corpuscular Hemoglobin 30.2 pg (25-34); Mean Corpuscular Hgb Conc 32.4 g/dL (32-36); Mean Corpuscular Volume 93.3 fL (80-100); Mean Platelet Volume 8.4 fL (7.4-10.4); Monocytes # (auto) 0.53 K/uL (0.11-0.59); Monocytes % (auto) 10.1 %; Neutrophils # (auto) 4.42 K/uL (1.4-6.5); Neutrophils % (auto) 83.8 %; Platelet Count 230 K/uL (130-400); RDW Coefficient of Variation 17.3 % (11.5-14.5); RDW Standard Deviation 58.6 fL (36.4-46.3); Red Blood Count 3.28 M/uL (4.2-5.4); White Blood Count 5.27 K/uL (4.8-10.8)
[2022-03-23 06:06] LABS: BUN Creatinine Ratio 35.9 (10-20); Calcium 8.2 mg/dl (8.5-10.1); Creatinine Clr Calc Pharmacy 45.2 ml/min; Est GFR (African American) 81.5 ml/min; Est GFR (Non-African American) 70.3 ml/min; Potassium 3.7 mmol/L (3.5-5.1)
[2022-03-23] MEDS: BUDESONIDE 0.5 MG/2 ML VIAL (PULMICORT) INH SCH ×2 (07:29→19:18)
[2022-03-23] MEDS: LEVOCETIRIZINE 5 MG SCH ×2 (07:33→15:19)
[2022-03-23] MEDS ORDERED: NON-FORMULARY MEDICATION (Glucosamine-Chondroitin [Osteo Bi-Flex] 250-200 mg Tablet) PO SCH (09:00)
[2022-03-23] MEDS ORDERED: ENOXAPARIN INJ 60 MG/0.6 ML SYR SQ SCH ×2 (09:00)
[2022-03-23] MEDS: ASPIRIN 81 MG ECTAB PO SCH (09:57)
[2022-03-23] MEDS: carvediloL 6.25 MG TAB PO SCH (09:57)
[2022-03-23] MEDS: DOCUSATE SODIUM 100 MG CAP PO SCH ×2 (09:57→22:33)
[2022-03-23] MEDS: FLUoxetine HCL 20 MG CAP PO SCH (09:57)
[2022-03-23] MEDS: FLUTICASONE/VILANTEROL 200/25MCG 14 PUFFS/INHALER INH SCH (09:57)
[2022-03-23] MEDS: UMECLIDINIUM BROMIDE 62.5MCG/BLISTER 7 PUFFS/INHALER INH SCH (09:58)
[2022-03-23] MEDS: lisinopril 5 MG TAB PO SCH ×2 (09:58→22:33)
[2022-03-23] MEDS: MONTELUKAST SODIUM 10 MG TABLET PO SCH (09:58)
[2022-03-23] MEDS: GABAPENTIN 100 MG CAP PO SCH ×2 (09:58→22:33)
[2022-03-23] MEDS: MULTIVITAMIN CHEWABLE TAB PO SCH (09:58)
[2022-03-23] MEDS: cefTRIAXone SODIUM 1,000 MG in DEXTROSE 5% 50 ML IV SCH (10:03)
--- NOTE | 2022-03-23 12:33 | Consultation Report ---
DATE OF SERVICE: 03/23/2022 REASON FOR CONSULTATION: Weakness. The patient and the chart served as the chief historian, and I discussed the patient with Dr. Ruggiero. HISTORY OF PRESENT ILLNESS: This patient had a protracted admission to [facility] for weakness, hyponatremia and was subsequently transferred to [facility] and then to a detention. The patient's weakness did not improve while at [facility]. On the day of admission, she was noted to have garbled speech and failed the swallowing eval and was confused, so she was brought to the hospital. Apparently, while ill, she lost a significant amount of weight. The patient is difficult to examine. She is mildly sleepy and her voice volume is very low, but not nasal. She is oriented to person. She felt it was 2022 and thought she was at home. She denies any weakness. She denies any incontinence. She denies any headache and she denies any spinal pain. She denies any paresthesias. PAST MEDICAL HISTORY: Notable for asthma, carotid stenosis, DVT, PE, chronic kidney disease, diabetes but no neuropathy, hypertension, hyperlipidemia, irritable colon, osteoporosis, repair of aortic valve with a tissue graft. PAST SURGICAL HISTORY: As above. Colonoscopy, total knee. FAMILY HISTORY: Cancer, hypertension. SOCIAL HISTORY: Nonsmoker, does not drink alcohol. The patient indicates that she lived at home prior to the admission and used a walker. ALLERGIES: SITAGLIPTIN, JARDIANCE, FUROSEMIDE, HCTZ, SULFA, METOPROLOL, PENICILLIN, CODEINE, FENOFIBRATE, PREDNISONE AND STATINS. HOME MEDICATIONS: Albuterol, carvedilol, multiple vitamins, repaglinide, trazodone, Prozac, Advair, glucosamine, levocetirizine, metformin, Spiriva, lisinopril, apixaban, aspirin, ethacrynic acid, montelukast, gabapentin 100 mg b.i.d., Colace, potassium, urea. DIAGNOSTIC WORKUP: Notable for an MRI of the brain with age-related chronic vascular changes. CTA of the neck showed evidence of possible fibromuscular dysplasia, otherwise unremarkable. Abdomen and pelvis CT showed an enhancing fluid collection in the right gluteus holly, indeterminate etiology and chronicity, possibly representing a seroma or hematoma. Smaller, but similar appearing fluid collection in the right gluteus medius muscle of having a same differential. Renal cortical enhancement, appearing heterogeneous, with mild uroepithelial thickening, cardiomegaly, moderate constipation. Other findings as above. CBC notable for an H and H of 11.2 and 35, platelet count 283. Sed rate 32. INR 1.1. Sodium normal. BUN ____ 47/1.2, glucose 241, calcium 9.5. Transaminases normal. Troponin elevated. TSH 2.2. CK 14. Acetylcholine receptor antibody ordered, but pending. Urinalysis; trace protein, trace glucose, 1+ ketones, 10-30 white cells, greater than 30 epithelial cells, 1+ urine bacteria. PHYSICAL EXAMINATION: The patient is sleepy, but arousable, answers questions, modestly hypophonic. She is very cachectic. She has significant distal atrophy in the lower extremities below the knees. Feet are high-arched. Her neck is supple. I do not appreciate any carotid bruits. Heart has regular rate and rhythm. Pupils appear post-surgical, although she denies that. I am unable to visualize the optic nerves. There is normal motility without fatigue, normal eye closure without fatigue, although for the most part, she is at rest and her eyes are closed. She is able to open them. There may be a marginal flattening of the left nasolabial fold. There is no neck flexor weakness or fatigue. No jaw opening weakness or fatigue. Gag is depressed bilaterally. Tongue is midline. There is minor jaw tremor and lip tremor noted. There is some occasional resting tremor, but more so there is a postural tremor. There is some minor rigidity, which may be more in the realm of gegenhalterni.e., velocity related. Strength is full in the uppers. She had a little bit of difficulty with proximal strength, but that appears to be on a cognitive basis. I do not appreciate any fatigability. Tone increased, but probably again gegenhaltenn the lowers. Essentially, her strength is full in the lower extremities. Her reflexes are mildly diffusely brisk. The right ankle is 2, the left is trace. There is no clonus and toes are downgoing. Vibration is appreciated at the ankles. No zeha-lh-byrm sensory loss to light touch. She has a severe tremor with intention. Dylu-zc-culj is adequate. Gait was not tested. IMPRESSION AND PLAN: This patient has been significantly ill with significant weight loss. She is modestly encephalopathic and mildly sleepy, which is probably related to dehydration, hyperglycemia, possible urinary tract infection. With the coughing, it raises the question of an underlying infectious etiology. In general, I would plan to adequately hydrate her. Correct electrolyte abnormalities. Hold trazodone. Regarding fibromuscular dysplasia, this should not explain her presentation. There are no infarcts on scan and no evidence of dissection. She is already on antiplatelet therapy. Consider imaging of the renal arteries to rule out fibromuscular dysplasia. At some point in the future, CTA of the neck on repeat would be appropriate. This patient has a severe essential tremor, which does not currently need to be treated. There is some minor evidence of some parkinsonism, but this is probably more g[place]hanhalten and overflow from her essential tremor. We will monitor as she is hydrated and less encephalopathic. I see no evidence of a disorder of weakness per se. There is no evidence of [place]ill[place]. I see no fatigability of eye closure. Her speech is hypophonic, but not nasal. Her neck flexors are full and essentially her strength is full within the limits of her illness. No objection to checking an acetylcholine receptor antibody titer, but I would not empirically treat her for myasthenia gravis. The patient does appear quite ill and I would recommend close monitoring of her respiratory status as you are doing, which would be appropriate on a primary pulmonary basis or if there was a neuromuscular cause of weakness. We will continue to follow with you. Job ID: [id number] MTDD
--- NOTE | 2022-03-23 17:27 | Hospitalist Progress Note ---
Date of Service March 23, 2022 Assessment & Plan (1) Weakness: Plan: 81 year old female with history of DM, HTN, CKD 3, anemia, PE/DVT on Eliquis, Asthma, Hyponatremia presenting with weakness, garbled speech, confusion, dysphagia. GENERALIZED WEAKNESS LIKELY FROM DEHYDRATION, POOR ORAL INTAKE Improving today Continue D5NSS Speech therapy eval: Repeat evaluation tomorrow FROM URINARY TRACT INFECTION: Urine culture: More than 3 types of organisms present, on high counts Ceftriaxone IV day #2 POSSIBLE MYASTHENIA GRAVIS? (+) dysphagia per Speech Therapist in Center Care discussed with Neurologist Dr. Hewitt Acetylcholine receptor antibody ordered NIF test performed at bedside -30, okay per respiratory therapist NIF every 4 hours: Okay so far CT head: No acute process CT angiogram head and neck: Unrevealing Brain MRI: No acute CVA Neurologist Dr. Dong recommendations noted and appreciated MG unlikely at this point DIABETES TYPE 2 Insulin sliding scale HYPERTENSION Oral BP meds on hold for now Hydralazine as needed ACUTE KIDNEY INJURY ON CKD STAGE III Creatinine 1.3, baseline 0.9 Creatinine now 0.78 IV fluids as above BMP daily CHRONIC PE, LEFT DVT On Eliquis Lovenox, while p.o. meds on hold ASTHMA Continue Breo HYPONATREMIA Hold urea, ethacrynic acid Monitor daily DVT prophylaxis Lovenox subcutaneous CODE STATUS DNR/DNI per previous admission 2 weeks ago Tried to call patient's contact worker'[id number] answer Voicemail left requesting callback Admission and Anticipated Discharge Date Admission Date: March 22, 2022 Subjective Follow-up for weakness and confusion, etc. Patient seen resting in bed, sleeping but easily awakened More alert today, answers more questions appropriately Oriented x2-3 Admits that she having poor appetite while in encompass also not drinking much fluids " Food does not taste as good as at home" Denies shortness of breath, cough, chest pain, palpitations, dizziness No abdominal pain, urinary symptoms, nausea vomiting No focal weakness or numbness Denies any other symptoms Review of Systems Review of Systems: all noted and negative except for above Physical Exam Physical Exam: General- oriented x 2, not in distress, speaks in sentences with no effort or accessory muscle use Somewhat weak, underweight Eyes- anicteric Neck- no JVD Lungs- clear breath sounds bilaterally, no crackles or wheezing Heart- normal rate, regular rhythm; no murmurs Abdomen- normal bowel sounds, nondistended, soft, nontender Extremities- no pretibial edema, no calf tenderness Neuro- alert, oriented x 2; no gross focal neurologic deficits Skin- warm & dry Results & Data Results & Data ([facility]) Vital Signs (Past 12 Hours) Vital Signs Temp Pulse Pulse Resp BP Pulse Ox 03/23/22 12:22 36.6 C 18 152/53 H 97 03/23/22 10:12 36.4 C L 85 20 152/68 H 98 03/23/22 08:00 82 03/23/22 07:34 84 20 95 all noted and reviewed including below
[2022-03-23] MEDS ORDERED: ENOXAPARIN 1 MG/KG SC SCH (21:00)
[2022-03-23] MEDS: carvediloL 3.125 MG TAB PO SCH (22:33)
[2022-03-23] MEDS: ENOXAPARIN INJ 60 MG/0.6 ML SYR SQ SCH (22:35)
[2022-03-24] MEDS: INSULIN ASPART PER UNIT SC SCH ×5 (00:51→23:53)
[2022-03-24] MEDS: D5W AND NSS 1,000 ML IV SCH ×2 (00:58→10:53)
[2022-03-24] MEDS: LEVOCETIRIZINE 5 MG SCH ×4 (01:06→23:55)
[2022-03-24] MEDS: BUDESONIDE 0.5 MG/2 ML VIAL (PULMICORT) INH SCH ×2 (07:14→20:36)
[2022-03-24 07:43] LABS: Creatinine Clr Calc Pharmacy 52.6 ml/min; Est GFR (African American) 94.2 ml/min; Est GFR (Non-African American) 81.3 ml/min
[2022-03-24] MEDS: carvediloL 6.25 MG TAB PO SCH (08:18)
[2022-03-24] MEDS: FLUoxetine HCL 20 MG CAP PO SCH (08:18)
[2022-03-24] MEDS: ASPIRIN 81 MG ECTAB PO SCH (08:18)
[2022-03-24] MEDS: DOCUSATE SODIUM 100 MG CAP PO SCH ×2 (08:18→21:53)
[2022-03-24] MEDS: ENOXAPARIN INJ 60 MG/0.6 ML SYR SQ SCH ×2 (08:19→21:57)
[2022-03-24] MEDS: MONTELUKAST SODIUM 10 MG TABLET PO SCH (08:19)
[2022-03-24] MEDS: MULTIVITAMIN CHEWABLE TAB PO SCH (08:19)
[2022-03-24] MEDS: GABAPENTIN 100 MG CAP PO SCH ×2 (08:19→21:53)
[2022-03-24] MEDS: lisinopril 5 MG TAB PO SCH ×2 (08:19→21:53)
[2022-03-24] MEDS: cefTRIAXone SODIUM 1,000 MG in DEXTROSE 5% 50 ML IV SCH (08:19)
[2022-03-24] MEDS: FLUTICASONE/VILANTEROL 200/25MCG 14 PUFFS/INHALER INH SCH (08:22)
[2022-03-24] MEDS: UMECLIDINIUM BROMIDE 62.5MCG/BLISTER 7 PUFFS/INHALER INH SCH (08:22)
--- NOTE | 2022-03-24 12:50 | Hospitalist Progress Note ---
Date of Service March 24, 2022 Assessment & Plan (1) Weakness: Plan: 81 year old female with history of DM, HTN, CKD 3, anemia, PE/DVT on Eliquis, Asthma, Hyponatremia presenting with weakness, garbled speech, confusion, dysphagia. GENERALIZED WEAKNESS LIKELY FROM DEHYDRATION, POOR ORAL INTAKE From poor appetite, ethacrynic acid use Improving today Continue D5NSS Speech therapy eval: For video fluoroscopic study tomorrow FROM URINARY TRACT INFECTION: Urine culture: More than 3 types of organisms present, on high counts Ceftriaxone IV day #3/3 POSSIBLE MYASTHENIA GRAVIS? (+) dysphagia per Speech Therapist in Center Care discussed with Neurologist Dr. Hewitt Acetylcholine receptor antibody ordered: pending NIF every 4 hours: Okay so far CT head: No acute process CT angiogram head and neck: Unrevealing Brain MRI: No acute CVA Neurologist Dr. Dong recommendations noted and appreciated MG unlikely at this point Generalized weakness felt to be secondary to dehydration, deconditioning DIABETES TYPE 2 Insulin sliding scale HYPERTENSION Oral BP meds on hold for now as patient is n.p.o. Hydralazine as needed ACUTE KIDNEY INJURY ON CKD STAGE III Creatinine 1.3, baseline 0.9 Creatinine now 0.67 IV fluids as above BMP daily CHRONIC PE, LEFT DVT On Eliquis Lovenox, while p.o. meds on hold ASTHMA Continue Breo HYPONATREMIA Hold urea, ethacrynic acid Monitor daily DVT prophylaxis Lovenox subcutaneous CODE STATUS DNR/DNI per previous admission 2 weeks ago plan of care discussed with patient's gradnson in detail and at length all questions answered he is understanding, agreeable, comfortable with the plan of care Admission and Anticipated Discharge Date Admission Date: March 22, 2022 Subjective Follow-up for weakness, dysphagia, etc. Seen resting in bed, comfortable, sleeping but easily awakened States she feels fine overall just tired Did not pass bedside speech therapy evaluation again today Denies focal weakness or numbness No abdominal pain, fevers or chills, urinary symptoms No other new symptoms Review of Systems Review of Systems: all noted and negative except for above Physical Exam Physical Exam: General- oriented x 2, not in distress, speaks in sentences with no effort or accessory muscle use Frail, appears weak but cooperative, follows commands Eyes- anicteric Neck- no JVD Lungs- clear breath sounds bilaterally, no rales/wheezes Heart- normal rate, regular rhythm; no murmurs Abdomen- normal bowel sounds, nondistended, soft, nontender Extremities- no pretibial edema, no calf tenderness Neuro- alert, oriented x 2; no gross focal neurologic deficits Skin- warm & dry Results & Data Results & Data ([facility]) Vital Signs (Past 12 Hours) Vital Signs Temp Pulse Pulse Resp BP BP Pulse Ox 03/24/22 11:00 36.7 C 76 18 136/63 97 03/24/22 07:15 70 20 96 03/24/22 07:00 36.3 C L 80 16 161/64 H 100 03/24/22 03:28 36.6 C 73 16 165/58 H 99 03/24/22 02:12 68 all noted and reviewed including below
[2022-03-24 13:45] LABS: BUN Creatinine Ratio 17.6 (10-20); Creatinine Clr Calc Pharmacy 51.9 ml/min; Est GFR (African American) 93.8 ml/min; Est GFR (Non-African American) 80.9 ml/min; Potassium 3.1 mmol/L (3.5-5.1)
--- NOTE | 2022-03-24 16:16 | Progress Notes ---
DATE OF SERVICE: 03/24/2022 SUBJECTIVE: I am seeing Mrs. Flores for generalized weakness. She is being hydrated. She has no new complaints other than being thirsty. Her acetylcholine receptor antibody titer is pending. Her respiratory parameters have been essentially unchanged. Speech therapy has seen her and made her n.p.o. Dietary has noted that she is n.p.o. and that she has lost 10% of her body weight. OBJECTIVE: On exam, she is sleepy, but arousable, oriented to person, I believe place and she thinks it is 2022. She follows some simple commands. Her eye closure is without fatigue. There is normal extraocular motility, I do not see any fatigability or extraocular muscle palsy or disconjugate gaze. No major facial asymmetry. No neck flexor or extensor fatigue or weakness. Jaw opening is full. Her strength is diffusely full. No fatigability of the deltoids, wrist extensors, iliopsoas. She still has intact ankle jerks. Mild tremor on intention. IMPRESSION AND PLAN: Dysphagia in the setting of illness and profound weight loss. MRI of the brain unrevealing. CTA showing fibromuscular dysplasia, which should be unrelated given the MRI showing no acute abnormalities. I see no fatigability on exam to suggest this is myasthenic. CK was low or normal. No evidence of a myopathic process, both clinically or via CK. TSH is normal. Recommend continued monitoring. Adequate hydration. The patient's BUN and creatinine are much improved, but clinically she still appears dry. Consider supplementation with thiamine, folic acid, and multiple vitamins via her IV fluids. I do not see any evidence of Wernicke's. Defer to dietary whether or not the patient can be on supplemental feeding via nasogastric tube or total parenteral nutrition. If the patient's parameters improved, she is less dehydrated and more awake and alert and no obvious etiology is found, would recommend transfer to an academic center for a nerve conduction EMG with repetitive stimulation. Again, I am not convinced that this represents myasthenia as her speech pattern is not typical for that and any weakness does not fatigue and I do not see any evidence of neuromuscular fatigue. Continue to monitor pulmonary parameters. We will follow with you. Job ID: [id number] [facility]
[2022-03-24] MEDS ORDERED: PHARMACY GLYCEMIC MGMT CONSULT PRN (17:01)
[2022-03-24] MEDS: POTASSIUM CHLORIDE / WTR 10 MEQ/100 ML PLCT IV SCH ×4 (18:24→22:42)
[2022-03-24] MEDS ORDERED: INSULIN GLARGINE SOLOSTAR 100 UNITS/ML 3 ML PEN SC ONE (18:45)
[2022-03-24] MEDS: D5NSS + 20MEQ KCL 20 MEQ/1,000 ML BAG IV SCH (19:18)
[2022-03-24] MEDS ORDERED: ACETAMINOPHEN 1000 MG/100 ML IV IV PRN (20:19)
[2022-03-24] MEDS: carvediloL 3.125 MG TAB PO SCH (21:53)
[2022-03-24] MEDS: ACETAMINOPHEN 1,000 MG/100 ML VIAL IV PRN (23:02)
[2022-03-25] MEDS ORDERED: INSULIN ASPART PER UNIT SC ONE (03:00)
[2022-03-25] MEDS: BUDESONIDE 0.5 MG/2 ML VIAL (PULMICORT) INH SCH ×2 (07:12→20:02)
[2022-03-25] MEDS: INSULIN ASPART PER UNIT SC SCH ×3 (07:15→18:11)
[2022-03-25 07:16] LABS: BUN Creatinine Ratio 14.5 (10-20); Calcium 7.8 mg/dl (8.5-10.1); Creatinine Clr Calc Pharmacy 56.9 ml/min; Est GFR (African American) 96.6 ml/min; Est GFR (Non-African American) 83.4 ml/min; Potassium 3.2 mmol/L (3.5-5.1)
[2022-03-25] MEDS: lisinopril 5 MG TAB PO SCH (07:19)
[2022-03-25] MEDS: GABAPENTIN 100 MG CAP PO SCH ×2 (07:19→20:23)
[2022-03-25] MEDS: carvediloL 6.25 MG TAB PO SCH (07:19)
[2022-03-25] MEDS: LEVOCETIRIZINE 5 MG SCH ×2 (07:19→13:46)
[2022-03-25] MEDS: ASPIRIN 81 MG ECTAB PO SCH (07:19)
[2022-03-25] MEDS: FLUoxetine HCL 20 MG CAP PO SCH (07:19)
[2022-03-25] MEDS: DOCUSATE SODIUM 100 MG CAP PO SCH ×2 (07:19→20:23)
[2022-03-25] MEDS: MULTIVITAMIN CHEWABLE TAB PO SCH (07:20)
[2022-03-25] MEDS: MONTELUKAST SODIUM 10 MG TABLET PO SCH (07:20)
[2022-03-25] MEDS ORDERED: INSULIN GLARGINE SOLOSTAR 100 UNITS/ML 3 ML PEN SC SCH (09:00)
[2022-03-25] MEDS: UMECLIDINIUM BROMIDE 62.5MCG/BLISTER 7 PUFFS/INHALER INH SCH (09:05)
[2022-03-25] MEDS: FLUTICASONE/VILANTEROL 200/25MCG 14 PUFFS/INHALER INH SCH (09:05)
[2022-03-25] MEDS: ENOXAPARIN INJ 60 MG/0.6 ML SYR SQ SCH ×2 (09:06→21:08)
[2022-03-25] MEDS: D5NSS + 20MEQ KCL 20 MEQ/1,000 ML BAG IV SCH (09:06)
[2022-03-25] MEDS: cefTRIAXone SODIUM 1,000 MG in DEXTROSE 5% 50 ML IV SCH (09:29)
[2022-03-25] MEDS: POTASSIUM CHLORIDE / WTR 10 MEQ/100 ML PLCT IV SCH ×3 (10:20→12:41)
[2022-03-25] MEDS: ONDANSETRON INJ 2 MG/ML 2 ML VIAL IV PRN (11:26)
--- NOTE | 2022-03-25 12:44 | Fluoroscopy Report ---
MODIFIED BARIUM SWALLOW CLINICAL HISTORY: Assess for aspiration. COMPARISON STUDY: None. FLUOROSCOPY TIME: 1.8. TECHNIQUE: A modified barium swallow was performed in conjunction with Speech Pathology. The patient ingested varying consistencies of barium containing material. Video fluoroscopy was performed. FINDINGS: Multiple episodes of silent tracheal aspiration were noted with single swallows of thin liq uids and swallows of mildly thick liquids. There was also aspiration with significant retention with pudding consistencies. IMPRESSION: 1. Multiple episodes of silent tracheal aspiration with thin liquids, mildly thick liquids and puddin g consistencies. 2. Full recommendations by speech pathology to follow. ACT 112: Negative or not required by law. Electronically signed by: Benoit Esquivel M.D. 03/25/2022 12:43 PM
--- NOTE | 2022-03-25 14:20 | Pharmacy Report ---
Pharmacy Glycemic Short Note 2 - Date of Service March 25, 2022 - Glycemic Short BSG Results (Last 24 hours): 03/24/22 03/24/22 03/25/22 18:12 23:49 03:34 Glucose POC Glucose 224 H 146 H 163 H 03/25/22 03/25/22 03/25/22 06:08 06:26 12:25 Glucose 146 H POC Glucose 163 H 139 H OUTPATIENT ANTIDIABETIC REGIMEN: * Empagliflozin 10mg PO qAM * Metformin 500mg PO BID * Repaglinide 1mg PO TID * HbA1c: 8.3% (12/18/21) ASSESSMENT: * Ms Flores is an 81yo diabetic F admitted with generalized weakness, garbled speech, confusion, dysphagia. * PO meds have been held on admission in the setting of dysphagia, NPO. * Pt was started on SQ basal/bolus insulin regimen. * Pharmacy will continue to follow and adjust as indicated. PLAN FOR INPATIENT GLYCEMIC CONTROL: * Hold outpatient oral diabetes medications * Basal insulin * Lantus 10 units SQ daily * Bolus insulin * NovoLog per scale ACHS or Q6hrs while NPO * Goal Range: Low 120 mg/dL - High 150 mg/dL * Correction Factor: 35 mg/dL/unit * Nutritional / Prandial insulin per carb ratio of 1 unit per 12 grams CHO consumed
--- NOTE | 2022-03-25 17:37 | Progress Notes ---
DATE OF SERVICE: 03/25/2022 SUBJECTIVE: I am seeing Mrs. Flores in followup of dysphagia status post illness and 10% body weigh t loss. The patient failed her swallowing evaluation today. She remains n.p.o. except for sips of w ater. She indicates that she has no complaints today. OBJECTIVE: Her oral mucosa appears less dry. There is normal extraocular motility without fatigabil ity. Normal eye closure, which is strong and without fatigability. Mild flattening of left nasolabi al fold. No neck flexor or extensor weakness. No jaw fatigue. Grossly, her strength is full. Ther e is some mild proximal weakness in the shoulders, but this appears to be related to inattention and perhaps shoulder pathology. Lower extremity strength is full. There is atrophy below the knees. I had difficulty eliciting ankle jerks today, but positioning was the major issue. IMPRESSION: This patient has had a significant illness with hyponatremia and significant weight loss . There was a clinical question as to whether or not she may be myasthenic. Her respiratory status is stable. She does not have a typical speech pattern of someone with myasthenia, i.e., she is hypop honic, but not nasally dysarthric. There is no respiratory compromise in the sense that she is not h aving any difficulty handling her secretions. Her strength appears intact. At least on the other da ys of evaluation, she had intact ankle jerks. She is really not overtly week considering what she roberson s been through and there is no fatigability. PLAN: I would recommend starting to feed the patient and resume her medications and see if she impro ves. I await the results of the acetylcholine receptor antibody titer. She could be transferred to a tertiary care center where she could have a nerve conduction EMG and repetitive stimulation. It wi ll depend on the desires of the family. We will follow with you. Job ID: [id number]
--- NOTE | 2022-03-25 18:32 | Hospitalist Progress Note ---
Date of Service March 25, 2022 Assessment & Plan (1) Weakness: Plan: Patient is an 81 yr female with H/O DM, HTN, CKD 3, anemia, PE/DVT on Eliquis, Asthma, Hyponatremia presents with weakness, garbled speech, confusion, dysphagia. Generalized weakness Dehydration, poor oral intake Was also on ethacrynic acid use On IV fluids PT OT Severe oropharyngeal dysphagia --Video Swallow:Multiple episodes of silent tracheal aspiration with thin liquids, mildly thick liquids and pudding consistencies. High risk for aspiration pneumonia N.p.o. for now Aspiration precautions Palliative care consulted to address goals of care Suspected UTI UTI ruled out Urine culture negative Received ceftriaxone for 3 days Suspecting myasthenia gravis --MRI Brain:No acute intracranial abnormality. --Neck CT:There is no hemorrhage, mass effect, or evidence of acute territorial ischemia by CT criteria. Unremarkable CT angiogram of the brain. Both internal carotid arteries demonstrate a beaded appearance typical for fibromuscular dysplasia. Otherwise unremarkable CT angiogram of the neck. The carotid and vertebral arteries are patent bilaterally. --Acetylcholine receptor antibody ordered: pending NIF every 4 hours Appreciate Neurology Input Consider transfer to tertiary care center, as may need nerve conduction EMG and repetitive stimulation Needs to address goals of care: Unable to reach family today DM II Continue Insulin sliding scale HTN Hold PO Meds while NPO Hydralazine as needed FARHAN on CKD III Cr back to baseline after IV fluids Monitor Chronic PE, Left DVT On Eliquis Lovenox, while p.o. meds on hold Asthma Continue Breo Hyponatremia Hold urea, ethacrynic acid Monitor daily Hypokalemia Replace as needed DVT Px Lovenox SQ CODE STATUS DNR/DNI Admission and Anticipated Discharge Date Admission Date: March 22, 2022 Subjective Patient is seen and examined at bedside Had video swallow study earlier today " My stomach is upset" Poor historian Tried to reach family over the phone, no answer Denies chest pain, dyspnea Review of Systems Review of Systems: All systems reviewed & are unremarkable except as noted in Subjective Physical Exam Physical Exam: Physical Exam: Vitals signs as noted above General Appearance:Thin, frail, elderly, no apparent distress Head: normocephalic, Atraumatic Eyes: normal inspection, EOMI Neck: supple, Trachea midline Respiratory/Chest: Normal breath sounds, minimal basal crackles, No accessory muscle use Cardiovascular: S1, S2, No murmur Abdomen/GI:Soft, Non tender, Bowel sounds present Extremities/Musculoskeletal:normal inspection, no edema Neurologic/Psych:AAOX2, grossly no focal neurological deficits Skin: normal color, warm Results & Data Results & Data ([facility]) Vital Signs (Past 12 Hours) Vital Signs Temp Pulse Pulse Resp BP BP Pulse Ox 03/25/22 15:30 36.9 C 81 161/62 H 97 03/25/22 12:30 36.9 C 77 167/61 H 98 03/25/22 11:00 36.6 C 74 18 170/63 H 99 03/25/22 07:13 76 16 97 03/25/22 07:00 36.8 C 66 18 174/62 H 98 Laboratory Results [facility] 03/25/22 06:08 Sodium 137 Potassium 3.2 L Chloride 110 H Carbon Dioxide 23 BUN 9 Creatinine 0.62 Glucose 146 H Calcium 7.8 L
[2022-03-25] MEDS: ACETAMINOPHEN 1,000 MG/100 ML VIAL IV PRN (19:28)
[2022-03-26] MEDS: INSULIN ASPART PER UNIT SC SCH ×4 (00:36→18:22)
[2022-03-26] MEDS: LEVOCETIRIZINE 5 MG SCH ×3 (00:36→15:33)
[2022-03-26 06:47] LABS: Hematocrit (blood only) 30.8 % (37-47); Hemoglobin 10.5 g/dL (12.0-16.0); Mean Corpuscular Hemoglobin 31.3 pg (25-34); Mean Corpuscular Hgb Conc 34.1 g/dL (32-36); Mean Corpuscular Volume 91.7 fL (80-100); Mean Platelet Volume 8.4 fL (7.4-10.4); Platelet Count 264 K/uL (130-400); RDW Coefficient of Variation 15.9 % (11.5-14.5); Red Blood Count 3.36 M/uL (4.2-5.4); White Blood Count 4.58 K/uL (4.8-10.8)
[2022-03-26 07:02] LABS: BUN Creatinine Ratio 14.8 (10-20); Calcium 7.9 mg/dl (8.5-10.1); Creatinine Clr Calc Pharmacy 65.3 ml/min; Est GFR (African American) 101.1 ml/min; Est GFR (Non-African American) 87.3 ml/min; Magnesium 1.3 mg/dl (1.7-2.4); Potassium 3.6 mmol/L (3.5-5.1)
[2022-03-26] MEDS: BUDESONIDE 0.5 MG/2 ML VIAL (PULMICORT) INH SCH ×2 (07:10→19:51)
[2022-03-26] MEDS: DOCUSATE SODIUM 100 MG CAP PO SCH ×2 (07:42→19:48)
[2022-03-26] MEDS: ASPIRIN 81 MG ECTAB PO SCH (07:42)
[2022-03-26] MEDS: MONTELUKAST SODIUM 10 MG TABLET PO SCH (07:43)
[2022-03-26] MEDS: ENOXAPARIN INJ 60 MG/0.6 ML SYR SQ SCH ×2 (07:43→21:30)
[2022-03-26] MEDS: UMECLIDINIUM BROMIDE 62.5MCG/BLISTER 7 PUFFS/INHALER INH SCH (07:43)
[2022-03-26] MEDS: GABAPENTIN 100 MG CAP PO SCH ×2 (07:43→19:48)
[2022-03-26] MEDS: MULTIVITAMIN CHEWABLE TAB PO SCH (07:43)
[2022-03-26] MEDS: FLUoxetine HCL 20 MG CAP PO SCH (07:43)
[2022-03-26] MEDS: FLUTICASONE/VILANTEROL 200/25MCG 14 PUFFS/INHALER INH SCH (07:44)
[2022-03-26] MEDS: cefTRIAXone SODIUM 1,000 MG in DEXTROSE 5% 50 ML IV SCH (08:26)
[2022-03-26] MEDS ORDERED: TPN/PPN CONSULT PHARMACY PRN (08:59)
[2022-03-26] MEDS ORDERED: NSS + 20MEQ KCL 20 MEQ/1,000 ML BAG IV ONE (09:05)
[2022-03-26] MEDS: MAGNESIUM SULFATE / D5W 1 GM/100 ML BAG IV SCH ×2 (10:09→11:11)
[2022-03-26] MEDS ORDERED: POTASSIUM PHOS 3 MMOL/1 ML INFUSION IV STA (12:08)
[2022-03-26] MEDS ORDERED: D5NSS + 20MEQ KCL 20 MEQ/1,000 ML BAG IV ONE (12:30)
[2022-03-26] MEDS ORDERED: POTASSIUM PHOSPHATE 21 MMOL in DEXTROSE 5% 500 ML IV ONE (12:30)
[2022-03-26] MEDS: INSULIN GLARGINE SOLOSTAR 100 UNITS/ML 3 ML PEN SC SCH (13:32)
[2022-03-26] MEDS: ONDANSETRON INJ 2 MG/ML 2 ML VIAL IV PRN (17:48)
--- NOTE | 2022-03-26 18:04 | Hospitalist Progress Note ---
Date of Service March 26, 2022 Assessment & Plan (1) Weakness: Plan: Patient is an 81 yr female with H/O DM, HTN, CKD 3, anemia, PE/DVT on Eliquis, Asthma, Hyponatremia presents with weakness, garbled speech, confusion, dysphagia. Generalized weakness Dehydration, poor oral intake Was also on ethacrynic acid use On IV fluids PT OT Severe oropharyngeal dysphagia --Video Swallow:Multiple episodes of silent tracheal aspiration with thin liquids, mildly thick liquids and pudding consistencies. High risk for aspiration pneumonia N.p.o. for now Aspiration precautions Palliative care consulted to address goals of care Plan to start PPN tomorrow Hypophosphatemia Replace electrolytes as needed Suspected UTI UTI ruled out Urine culture negative Received ceftriaxone for 3 days Suspecting myasthenia gravis --MRI Brain:No acute intracranial abnormality. --Neck CT:There is no hemorrhage, mass effect, or evidence of acute territorial ischemia by CT criteria. Unremarkable CT angiogram of the brain. Both internal carotid arteries demonstrate a beaded appearance typical for fibromuscular dysplasia. Otherwise unremarkable CT angiogram of the neck. The carotid and vertebral arteries are patent bilaterally. --Acetylcholine receptor antibody ordered: pending NIF every 4 hours Appreciate Neurology Input Consider transfer to tertiary care center, as may need nerve conduction EMG and repetitive stimulation Needs to address goals of care: Unable to reach family today DM II Continue Insulin sliding scale HTN Hold PO Meds while NPO Hydralazine as needed FARHAN on CKD III Cr back to baseline after IV fluids Monitor Chronic PE, Left DVT On Eliquis Lovenox, while p.o. meds on hold Asthma Continue Breo Hyponatremia Hold urea, ethacrynic acid Monitor daily Sodium 132 Hypokalemia Replace as needed DVT Px Lovenox SQ CODE STATUS DNR/DNI Admission and Anticipated Discharge Date Admission Date: March 22, 2022 Subjective Patient is seen and examined at bedside Lethargic during my encounter Complained of generalized pain, nausea with movement Poor historian Denies chest pain, dyspnea Review of Systems Review of Systems: All systems reviewed & are unremarkable except as noted in Subjective Physical Exam Physical Exam: Physical Exam: Vitals signs as noted above General Appearance:Thin, frail, elderly, no apparent distress Head: normocephalic, Atraumatic Eyes: normal inspection, EOMI Neck: supple, Trachea midline Respiratory/Chest: Normal breath sounds, minimal basal crackles, No accessory muscle use Cardiovascular: S1, S2, No murmur Abdomen/GI:Soft, Non tender, Bowel sounds present Extremities/Musculoskeletal:normal inspection, no edema Neurologic/Psych:AAOX2, grossly no focal neurological deficits, Lethargic Skin: normal color, warm Results & Data Results & Data ([facility]) Vital Signs (Past 12 Hours) Vital Signs Temp Pulse Resp BP Pulse Ox 03/26/22 16:09 36.8 C 95 H 18 152/74 H 98 03/26/22 12:04 36.9 C 81 18 160/73 H 97 03/26/22 08:10 37.0 C 79 18 122/63 92 03/26/22 07:10 87 16 98 Laboratory Results Short CBC 03/26/22 Range/Units 06:07 WBC 4.58 L (4.8-10.8) K/uL Hgb 10.5 L (12.0-16.0) g/dL Hct 30.8 L (37-47) % Plt Count 264 (130-400) K/uL BMP 03/26/22 06:07 Sodium 132 L Potassium 3.6 Chloride 104 Carbon Dioxide 22 BUN 8 Creatinine 0.54 L Glucose 117 H Calcium 7.9 L
--- NOTE | 2022-03-26 18:20 | Progress Notes ---
DATE OF SERVICE: 03/26/2022 SUBJECTIVE: I am seeing Mrs. Flores in followup of dysphagia and fibromuscular dysplasia. She remains n.p.o. as her swallowing is not adequate to take by mouth. The patient's acetylcholine receptor antibody titer is pending. OBJECTIVE: The patient is more alert today, appears less dry clinically. Followed simple commands. No fatigability of eye closure, and neck flexion and extension does not appear weak. Her strength is symmetric, although likely mildly generally weak, but without fatigue. I had some difficulty eliciting reflexes in her ankles today, likely related to positioning and toes were downgoing. IMPRESSION AND PLAN: 1. Asymptomatic fibromuscular dysplasia, no evidence of stroke. Antiplatelet therapy when able. Rectal aspirin if appropriate. 2. Oropharyngeal dysphagia. No convincing clinical evidence of myasthenia. Her voice pattern is more of low volume and hypophonia rather than nasality. She is in no respiratory distress. Await the results of the antibody titer. Alternatively, consider transfer to tertiary care center for a nerve conduction EMG and repetitive stimulation. I would strongly recommend feeding this patient, whether that is peripherally or via nasogastric tube. It is hard to imagine that she will improve in strength until she has more adequate nutrition. Job ID: [id number] [facility]
[2022-03-27] MEDS: INSULIN ASPART PER UNIT SC SCH ×5 (00:02→20:18)
[2022-03-27] MEDS: LEVOCETIRIZINE 5 MG SCH ×2 (00:03→07:34)
[2022-03-27] MEDS: BUDESONIDE 0.5 MG/2 ML VIAL (PULMICORT) INH SCH ×2 (07:09→19:38)
--- NOTE | 2022-03-27 07:24 | CT Scan Report ---
HEAD CT NONCONTRAST CT DOSE: 614.27 mGy.cm HISTORY: Left leg weakness. TECHNIQUE: Multiaxial CT images of the head were performed without the use of intravenous contrast. A utomated exposure control was utilized for this study. A dose lowering technique was utilized adheri ng to the principles of ALARA. Comparison: Head CT 03/22/2022. Findings: Opacified left maxillary sinus and mucosal thickening within the right maxillary sinus, unc hanged. The mastoid air cells are clear. The calvarium and skull base are intact. There is no mass, h ematoma, midline shift, acute infarct. White matter hypodensity is nonspecific but suggestive of micr ovascular ischemic change. The ventricles and sulci demonstrate mild age-related involutional changes . Stable ventricular prominence. Impression: 1. No acute infarct or intracranial hemorrhage. 2. Stable ventricular prominence. This could be due to central volume loss or normal pressure hydroce phalus. Clinical correlation recommended. ACT 112: Negative or not required by law. Electronically signed by: Primitivo Horvath M.D. 03/27/2022 7:22 AM
[2022-03-27] MEDS: GABAPENTIN 100 MG CAP PO SCH ×2 (07:34→19:57)
[2022-03-27] MEDS: FLUoxetine HCL 20 MG CAP PO SCH (07:34)
[2022-03-27] MEDS: ASPIRIN 81 MG ECTAB PO SCH (07:34)
[2022-03-27] MEDS: DOCUSATE SODIUM 100 MG CAP PO SCH ×2 (07:34→19:57)
[2022-03-27] MEDS: MONTELUKAST SODIUM 10 MG TABLET PO SCH (07:35)
[2022-03-27] MEDS: MULTIVITAMIN CHEWABLE TAB PO SCH (07:35)
[2022-03-27 07:57] LABS: Calcium 7.6 mg/dl (8.5-10.1); Creatinine Clr Calc Pharmacy 61.9 ml/min; Est GFR (African American) 99.4 ml/min; Est GFR (Non-African American) 85.7 ml/min; Magnesium 1.7 mg/dl (1.7-2.4); Phosphorus 2.5 mg/dl (2.5-4.9); Potassium 3.6 mmol/L (3.5-5.1)
[2022-03-27] MEDS ORDERED: DEXTROSE 10% 1,000 ML IV PRN (08:21)
--- NOTE | 2022-03-27 08:26 | Pharmacy Report ---
Pharmacy PN Initial Consult - Date of Service March 27, 2022 - Scope Pharmacy has been consulted to manage parenteral nutrition orders and order appropriate labs. As part of the Nutrition Support Team guidelines, pharmacy will work in conjunction with dietary when determining the patients caloric needs. - Subjective The patient is a 81 year old F admitted on 03/22/22 15:03 for DYSARTHRIA, CONFUSION, R/O CVA. Patient is to receive parenteral nutrition for prolonged [employer] O status. Pertinent PMH: n/A - Objective Height: 5 ft 3 in Weight: 55.2 kg Diet: NPO Vascular Access:: peripheral Intake & Output (Last 24Hrs): Intake & Output 03/25/22 03/26/22 03/27/22 03/28/22 06:59 06:59 06:59 06:59 Intake Total 2453.334 / 2453.334 2460 / 2460 862.834 / 862.834 Output Total 1275 / 1275 975 / 975 1600 / 1600 Balance 1178.334 / 2473.002 5516 / 1485 -737.166 / -737.166 Weight 55.7 kg 56 kg 55.2 kg Laboratory Data (Last 24 Hrs):: 03/26/22 03/27/22 06:07 06:38 Sodium 130 L Potassium 3.6 Chloride 102 Carbon Dioxide 24 BUN 8 Creatinine 0.57 L Glucose 145 H Calcium 7.6 L Phosphorus 1.9 L 2.5 Magnesium 1.7 Nutrition Assessment:: Please refer to the Notes section of the EMR for the most recent [employer] executive director note. - Assessment Ms Flores is an 81 y/o F with prolonged NPO status. PPN held yesterday due to critical phos and magnesium levels. These have been repleted and PPN to start today. - Plan For day 1 of PN administration, the following will be ordered: Macronutrients Amino acids 51 grams/day Dextrose 60 grams/day Lipids 40 grams/day Micronutrients Combined electrolytes -- mL - contains 35 mEq Na, 20 meq K, 4.5 mEq Ca, 5 mEq Mg, 35 mEq Cl, 29.5 mEq acetate per 20 mL Sodium phosphate -- MMol Sodium chloride 40 mEq Sodium acetate 40 mEq Potassium phosphate 21 mMol Potassium chloride -- mEq Potassium acetate -- mEq Magnesium sulfate 4.06 mEq Calcium gluconate -- mEq Multivitamins 10 mL Trace Elements 10 mL Additional additives: Total volume 1252 mL to be infused over 24 hrs will provide 808 kcal/day Final osmolarity 820 mOsm/L (maximum for PPN is 900 mOsm/L) Labs to be ordered per PN order protocol Pharmacy will follow and adjust parenteral nutrition orders on a daily basis. Thank you.
[2022-03-27] MEDS ORDERED: NSS + 20MEQ KCL 20 MEQ/1,000 ML BAG IV SCH (09:30)
--- NOTE | 2022-03-27 10:06 | Palliative Care Consultation ---
Date of Consultation March 27, 2022 Assessment & Plan (1) Dysphagia: Followed by Dr. Hewitt. MRI negative. ACh antibody testing pending for myasthenia gravis. Remains NPO and is starting parenteral nutrition. (2) Palliative care encounter: Mrs. Flores is not capable of goals of care discussion. There does not appear to be an advance directive in the chart. I have called both grandsons with no answer. Will continue to reach out and follow. [phone] I was able to reach Cisco by phone. We discussed Cleo's current status and concerns about how best to help her moving forward. We reviewed enteral nutrition. He understands that this is a temporary solution. He has been communicating with his brother Dung who lives with Cleo. Their hope is that with nutrition, her mental status and strength would improve. We discussed longer term issues for nutrition if she does not improve, including PEG versus comfort focused care. He is hopeful that she will be able to participate in this discussion. We will touch base again on Wednesday and arrange family meeting with Cisco and Dung to assess where Cleo is at that point and discuss goals moving forward. History of Present Illness Reason for Consultation: goals of care Requesting Physician: Dr. Moore Attending Physician: Duglas Moore MD History of Present Illness 81 yo lady who has had three hospitalizations in the last three months. She has a history of diabetes, asthma, hypertension, hyperlipidemia, osteoporosis and aortic valve repair. She was hospitalized in November with a DVT and PE and was on eliquis at home. She was also admitted twice in the February for weakness and a fall. She had been transferred to [facility] after her previous admission but weakness persisted and she was subsequently transferred to [facility]. She has had 13 lb weight loss during that time and is hyponatremic. She is also noted to have fibromuscular dysplasia and dysphagia. A ST evaluation and a videofluoroscopic swallow. She unfortunately has silent aspiration with thin liquids, mildly thick liquids and pudding consistency and is currently NPO per speech recommendation. We have been consulted to assist with goals of care. Cleo is sleeping but arousable. She is oriented to person only. She is able to tell me that her grandson, Dung, lives with her and that her grandson, Cisco, is her POA. She tells me that she has talked with him about what her wishes would be but is not able to elaborate with me. She does not recall discussion on prior admission during which she indicated that she would not want resuscitation. Allergies Allergy/AdvReac Type Severity Reaction Status Date / Time sitagliptin Allergy Severe ANAPHYLAXIS Verified 03/22/22 13:14 empagliflozin Allergy Intermediate Blister Verified 03/22/22 13:14 [From Jardiance] furosemide Allergy Intermediate rash from Verified 03/22/22 13:14 "GENERIC" lasix hydrochlorothiazide Allergy Intermediate Rash Verified 03/22/22 13:14 Sulfa (Sulfonamide Allergy Intermediate PATEINT Verified 03/22/22 13:14 Antibiotics) HAS TOLERATED LASIX metoprolol Allergy Unknown ON MED LIST Verified 03/22/22 13:14 Penicillins Allergy Unknown Unknown Verified 03/22/22 13:14 codeine AdvReac Intermediate Confusion Verified 03/22/22 13:14 fenofibrate AdvReac Intermediate Muscle Pain Verified 03/22/22 13:14 prednisone AdvReac Intermediate delerium Verified 03/22/22 13:14 Zauweae-HXQ-GwX Reductase AdvReac Intermediate elevated ck Verified 03/22/22 13:14 Inhibitor [Bnknwah-Rea-Skr Reductase Inhibitor] Home Medications Medication Instructions Recorded Confirmed Type albuterol sulfate 90 mcg/actuation 2 puff INHALATION BID PRN 04/25/19 03/22/22 History aerosol inhaler carvedilol 6.25 mg tablet 3.125 mg PO QPM 04/25/19 03/22/22 History carvedilol 6.25 mg tablet 6.25 mg PO QAM 04/25/19 03/22/22 History multivitamin 2 tab PO QAM 04/25/19 03/22/22 History repaglinide 1 mg tablet 1 mg PO TID 04/25/19 03/22/22 History trazodone 50 mg tablet 50 mg PO HS PRN 04/25/19 03/22/22 History budesonide 0.5 mg/2 mL suspension 0.5 mg INHALATION BID 12/16/21 03/22/22 History for nebulization diclofenac sodium 1 % topical gel 2 g TOPICAL QID PRN 12/16/21 03/22/22 History empagliflozin 10 mg tablet 10 mg PO QAM 12/16/21 03/22/22 History (Jardiance) fluoxetine 40 mg capsule 40 mg PO QAM 12/16/21 03/22/22 History fluticasone propionate 230 2 puff INHALATION BID 12/16/21 03/22/22 History mcg-salmeterol 21 mcg/actuation HFA inhaler (Advair HFA) glucosamine-chondroitin 250 mg-200 1 tab PO QAM 12/16/21 03/22/22 History mg tablet (Osteo Bi-Flex) ipratropium 0.5 mg-albuterol 3 mg 3 ml INHALATION TID PRN 12/16/21 03/22/22 History (2.5 mg base)/3 mL nebulization soln levocetirizine 5 mg tablet 5 mg PO HS 12/16/21 03/22/22 History metformin 500 mg tablet,extended 500 mg PO BID 12/16/21 03/22/22 History release 24 hr tiotropium bromide 2.5 2 puff INHALATION QAM 12/16/21 03/22/22 History mcg/actuation mist for inhalation (Spiriva Respimat) lisinopril 10 mg tablet 5 mg PO BID #0 tab 12/18/21 03/22/22 Rx apixaban 5 mg tablet (Eliquis) 5 mg PO BID 01/30/22 03/22/22 History aspirin 81 mg tablet,delayed 81 mg PO QAM 01/30/22 03/22/22 History release ethacrynic acid 25 mg tablet 25 mg PO QAM 01/30/22 03/22/22 History montelukast 10 mg tablet 10 mg PO QAM 01/30/22 03/22/22 History albuterol sulfate 2.5 mg INHALATION QID PRN 02/27/22 03/22/22 History gabapentin 100 mg capsule 100 mg PO BID 02/27/22 03/22/22 History docusate sodium 100 mg capsule 100 mg PO BID 30 Days #60 cap 03/06/22 03/22/22 Rx ethacrynic acid 25 mg tablet 50 mg PO DAILY 30 Days #60 tab 03/06/22 03/22/22 Rx (Edecrin) potassium chloride 10 mEq 10 meq PO DAILY 30 Days #30 tab 03/06/22 03/22/22 Rx tablet,extended release(part/cryst) urea 15 gram oral powder packet 15 g PO BID 30 Days ea 03/06/22 03/22/22 Rx (Ure-Na) Patient History Medical History Aortic valve insufficiency Asthma Carotid artery stenosis Chronic deep vein thrombosis (DVT) Chronic pulmonary embolism CKD (chronic kidney disease), stage III Diabetes mellitus, type II HTN (hypertension) Hyperlipidemia Irritable colon Osteoporosis 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) Surgical History History of colonoscopy Hx of total knee arthroplasty Family History Other Cancer Hypertension Social History Smoking Status: Never smoker Second Hand Exposure: No; Hx Alcohol Use: No Hx Substance Use: No Preferred Language: Kyrgyz Communication Ability: Impaired Auto Tech Required: No Beliefs That Will Affect Care: None marital status: / Current Living Situation: Residential Current Living Situation Comment: Pts grandson lives with her How many Children do You have: 1 Feels Safe at Home: Yes Assistive Devices: Walker Review of Systems Review of Systems: [place] Symptom Assessment Scale Pain 0/3 Dyspnea 0/3 Fatigue 2/3 Drowsiness 2/3 Palliative Performance Score 30% Physical Exam Constitutional: + frail appearing; no acute distress ENMT: Mouth: + dry oral mucous membranes Respiratory: normal respiratory effort; no labored breathing cough with deep inspiration Cardiovascular: Rate/Rhythm: regular rate and regular rhythm Gastrointestinal (Abdomen): soft, nontender Musculoskeletal: Extremities: + muscle atrophy Skin: warm Neurologic: lethargic Psychiatric: Orientation: oriented to person; + not oriented to place and + not oriented to time Results & Data ([facility]) Vital Signs (Past 12 Hours) Vital Signs Temp Pulse Pulse Resp BP Pulse Ox 03/27/22 07:33 74 03/27/22 07:09 74 18 98 03/27/22 07:00 97.3 F L 77 16 118/61 98 03/27/22 03:18 97.5 F L 77 18 120/67 98 03/26/22 23:33 78 03/26/22 22:44 97.7 F 78 18 124/66 98 PG Care Time/CCT Total # of Minutes Spent Total Time Spent: 60 Total Time Spent with Patient: Total time spent is greater than 50% in coordination of care (as documented) at patient's floor/unit and/or counseling patient: goals of care, family education and support Coding Level of Care Code 54317 Initial Inpt Care Lvl 2 Diagnoses Dysphagia R13.10 Palliative care encounter Z51.5
[2022-03-27] MEDS: ENOXAPARIN INJ 60 MG/0.6 ML SYR SQ SCH ×2 (10:30→20:20)
[2022-03-27] MEDS: INSULIN GLARGINE SOLOSTAR 100 UNITS/ML 3 ML PEN SC SCH (10:31)
[2022-03-27] MEDS: FLUTICASONE/VILANTEROL 200/25MCG 14 PUFFS/INHALER INH SCH (10:31)
[2022-03-27] MEDS: UMECLIDINIUM BROMIDE 62.5MCG/BLISTER 7 PUFFS/INHALER INH SCH (10:31)
--- NOTE | 2022-03-27 13:25 | Pharmacy Report ---
Pharmacy Glycemic Short Note 2 - Date of Service March 27, 2022 - Glycemic Short BSG Results (Last 24 hours): 03/26/22 03/26/22 03/27/22 18:19 23:56 05:44 Glucose POC Glucose 231 H 148 H 151 H 03/27/22 03/27/22 06:38 11:18 Glucose 145 H POC Glucose 131 H OUTPATIENT ANTIDIABETIC REGIMEN: * Empagliflozin 10mg PO qAM * Metformin 500mg PO BID * Repaglinide 1mg PO TID * HbA1c: 8.3% (12/18/21) ASSESSMENT: * BSGs yesterday were 051-348-341-148 mg/dL. BSGs today are 151-131 mg/dL. * Patient to be started on PPN today which is equivalent to D5 running previously. * Will continue Lantus 10 units daily + Novolog as BSGs previously within goal range with this. One elevated BSG yesterday due to late administration of Lantus. * Change Novolog to q4 due to PPN initiation. BACKGROUND * Ms Flores is an 81yo diabetic F admitted with generalized weakness, garbled speech, confusion, dysphagia. * PO meds have been held on admission in the setting of dysphagia, NPO. * Pt was started on SQ basal/bolus insulin regimen. * Pharmacy will continue to follow and adjust as indicated. PLAN FOR INPATIENT GLYCEMIC CONTROL: * Hold outpatient oral diabetes medications * Basal insulin * Lantus 10 units SQ daily * Bolus insulin * NovoLog per scale ACHS or Q6hrs while NPO * Goal Range: Low 120 mg/dL - High 150 mg/dL * Correction Factor: 35 mg/dL/unit * Nutritional / Prandial insulin per carb ratio of 1 unit per 12 grams CHO consumed
[2022-03-27] MEDS ORDERED: AMINO ACIDS 4.25% IV SCH (16:00)
[2022-03-27] MEDS ORDERED: PERIPHERAL TPN IV SCH (16:00)
[2022-03-27] MEDS ORDERED: D5W IV SCH (16:00)
[2022-03-27] MEDS: CLINOLIPID 20% IV FAT EMULSION 100 ML IV SCH ×2 (16:16→19:55)
[2022-03-27] MEDS: ACETAMINOPHEN 1,000 MG/100 ML VIAL IV PRN (16:37)
--- NOTE | 2022-03-27 18:03 | Hospitalist Progress Note ---
Date of Service March 27, 2022 Assessment & Plan (1) Weakness: Plan: Patient is an 81 yr female with H/O DM, HTN, CKD 3, anemia, PE/DVT on Eliquis, Asthma, Hyponatremia presents with weakness, garbled speech, confusion, dysphagia. Generalized weakness Dehydration, poor oral intake Was also on ethacrynic acid use On IV fluids PT OT Severe oropharyngeal dysphagia --Video Swallow:Multiple episodes of silent tracheal aspiration with thin liquids, mildly thick liquids and pudding consistencies. High risk for aspiration pneumonia N.p.o. for now Aspiration precautions Palliative care consulted to address goals of care Started on PPN Appreciate palliative care input Hypophosphatemia Replace electrolytes as needed Suspected UTI UTI ruled out Urine culture negative Received ceftriaxone for 3 days Suspecting myasthenia gravis --MRI Brain:No acute intracranial abnormality. --Neck CT:There is no hemorrhage, mass effect, or evidence of acute territorial ischemia by CT criteria. Unremarkable CT angiogram of the brain. Both internal carotid arteries demonstrate a beaded appearance typical for fibromuscular dysplasia. Otherwise unremarkable CT angiogram of the neck. The carotid and vertebral arteries are patent bilaterally. --Acetylcholine receptor antibody ordered: pending NIF every 4 hours Appreciate Neurology Input Consider transfer to tertiary care center, as may need nerve conduction EMG and repetitive stimulation Needs to address goals of care Appreciate palliative care input DM II Continue Insulin sliding scale HTN Hold PO Meds while NPO Hydralazine as needed FARHAN on CKD III Cr back to baseline after IV fluids Monitor Chronic PE, Left DVT On Eliquis Lovenox, while p.o. meds on hold Asthma Continue Breo Hyponatremia Hold urea, ethacrynic acid Monitor daily Sodium 130 IV fluids Hypokalemia Replace as needed DVT Px Lovenox SQ CODE STATUS DNR/DNI Admission and Anticipated Discharge Date Admission Date: March 22, 2022 Subjective Patient is seen and examined at bedside Offers no complaints Will be started on PPN today Appreciate palliative care input Unable to reach family when attempted Denies chest pain, dyspnea, nausea, abd pain Review of Systems Review of Systems: All systems reviewed & are unremarkable except as noted in Subjective Physical Exam Physical Exam: Physical Exam: Vitals signs as noted above General Appearance:Thin, frail, elderly, no apparent distress Head: normocephalic, Atraumatic Eyes: normal inspection, EOMI Neck: supple, Trachea midline Respiratory/Chest: Normal breath sounds, CTA, No accessory muscle use Cardiovascular: S1, S2, No murmur Abdomen/GI:Soft, Non tender, Bowel sounds present Extremities/Musculoskeletal:normal inspection, no edema Neurologic/Psych:AAOX2, grossly no focal neurological deficits Skin: normal color, warm Results & Data Results & Data ([facility]) Vital Signs (Past 12 Hours) Vital Signs Temp Pulse Pulse Resp BP Pulse Ox 03/27/22 14:00 37.1 C 80 16 139/69 98 03/27/22 11:00 36.3 C L 73 16 145/61 H 97 03/27/22 07:33 74 03/27/22 07:09 74 18 98 03/27/22 07:00 36.3 C L 77 16 118/61 98 Laboratory Results [facility] 03/27/22 06:38 Sodium 130 L Potassium 3.6 Chloride 102 Carbon Dioxide 24 BUN 8 Creatinine 0.57 L Glucose 145 H Calcium 7.6 L
[2022-03-27] MEDS: CETIRIZINE HCL 10 MG TABLET PO SCH (19:56)
[2022-03-28] MEDS: INSULIN ASPART PER UNIT SC SCH ×7 (00:13→23:57)
[2022-03-28] MEDS ORDERED: LABETALOL HCL IV 5 MG/ML 20ML IV STA (02:16)
[2022-03-28] MEDS: MAGNESIUM SULFATE / D5W 1 GM/100 ML BAG IV SCH ×2 (02:39→05:54)
[2022-03-28] MEDS: POTASSIUM CHLORIDE / WTR 10 MEQ/100 ML PLCT IV SCH ×4 (03:44→07:39)
[2022-03-28] MEDS ORDERED: ACETAMINOPHEN 1,000 MG/100 ML VIAL IV STA (06:10)
--- NOTE | 2022-03-28 06:16 | Communication Note ---
Date of Service: March 28, 2022 Patient with new headache symptoms as per RN. AP New headache symptoms Rule out ICH CT head now Hold aspirin and weight-based Lovenox until CT head results back
[2022-03-28 06:56] LABS: BUN Creatinine Ratio 18.6 (10-20); Calcium 7.8 mg/dl (8.5-10.1); Creatinine Clr Calc Pharmacy 50.4 ml/min; Est GFR (African American) 92.9 ml/min; Est GFR (Non-African American) 80.1 ml/min; Magnesium 2.1 mg/dl (1.7-2.4); Phosphorus 2.3 mg/dl (2.5-4.9); Potassium 4.3 mmol/L (3.5-5.1)
[2022-03-28] MEDS: BUDESONIDE 0.5 MG/2 ML VIAL (PULMICORT) INH SCH ×2 (07:37→19:53)
[2022-03-28] MEDS: MULTIVITAMIN CHEWABLE TAB PO SCH (07:40)
[2022-03-28] MEDS: MONTELUKAST SODIUM 10 MG TABLET PO SCH (07:40)
[2022-03-28] MEDS: DOCUSATE SODIUM 100 MG CAP PO SCH ×2 (07:40→20:18)
[2022-03-28] MEDS: FLUoxetine HCL 20 MG CAP PO SCH (07:40)
[2022-03-28] MEDS: GABAPENTIN 100 MG CAP PO SCH ×2 (07:40→20:18)
[2022-03-28] MEDS: INSULIN GLARGINE SOLOSTAR 100 UNITS/ML 3 ML PEN SC SCH (08:24)
[2022-03-28] MEDS: FLUTICASONE/VILANTEROL 200/25MCG 14 PUFFS/INHALER INH SCH (08:26)
[2022-03-28] MEDS: UMECLIDINIUM BROMIDE 62.5MCG/BLISTER 7 PUFFS/INHALER INH SCH (08:26)
[2022-03-28] MEDS ORDERED: SODIUM PHOSPHATE 3 MMOL/1 ML INFUSION IV ONE (09:04)
[2022-03-28] MEDS ORDERED: SODIUM PHOSPHATE 15 MMOL in SODIUM CHLORIDE 0.9% 250 ML IV ONE (09:15)
--- NOTE | 2022-03-28 10:07 | CT Scan Report ---
CT head/brain wo con CLINICAL HISTORY: 81 years-old Female with roberson. Acute headache with weakness TECHNIQUE: Multiple axial CT images of the head were obtained without contrast. A dose lowering tech nique was utilized adhering to the principles of ALARA. CT DOSE: 537.48 mGy.cm COMPARISON: Head CT 03/26/2022 FINDINGS: No acute intracranial hemorrhage, midline shift, intracranial mass, territorial ischemia or abnormal extra-axial collection. Mild age-related involutional changes. Unchanged ventriculomegaly. White gregg er hypodensities suggestive of chronic microvascular ischemic disease. The calvarium is intact. Trace left mastoid effusion. Right mastoid air cells and paranasal sinuses appear clear. Unremarkable soft tissues and orbits. Evidence of prior lens repair. IMPRESSION: 1. No acute intracranial abnormality. 2. Unchanged ventriculomegaly which may be secondary to ex vacuo changes versus normal pressure hydro cephalus. ACT 112: Negative or not required by law. The above report was generated using voice recognition software. It may contain grammatical, syntax o r spelling errors. Electronically signed by: Ricardo Gifford M.D. 03/28/2022 10:06 AM
[2022-03-28] MEDS: CLINOLIPID 20% IV FAT EMULSION 100 ML IV SCH ×4 (13:00→18:59)
[2022-03-28] MEDS ORDERED: D5W IV SCH (16:00)
[2022-03-28] MEDS ORDERED: AMINO ACIDS 4.25% IV SCH (16:00)
[2022-03-28] MEDS ORDERED: PERIPHERAL TPN IV SCH (16:00)
--- NOTE | 2022-03-28 16:04 | Hospitalist Progress Note ---
Date of Service March 28, 2022 Assessment & Plan (1) Weakness: Plan: Patient is an 81 yr female with H/O DM, HTN, CKD 3, anemia, PE/DVT on Eliquis, Asthma, Hyponatremia presents with weakness, garbled speech, confusion, dysphagia. Generalized weakness Dehydration, poor oral intake Was also on ethacrynic acid use Continue PT OT Severe oropharyngeal dysphagia --Video Swallow:Multiple episodes of silent tracheal aspiration with thin liquids, mildly thick liquids and pudding consistencies. High risk for aspiration pneumonia N.p.o. for now Aspiration precautions Palliative care consulted to address goals of care Continue PPN Appreciate palliative care input Hypophosphatemia Replace electrolytes as needed Suspected UTI UTI ruled out Urine culture negative Received ceftriaxone for 3 days Suspecting myasthenia gravis --MRI Brain:No acute intracranial abnormality. --Neck CT:There is no hemorrhage, mass effect, or evidence of acute territorial ischemia by CT criteria. Unremarkable CT angiogram of the brain. Both internal carotid arteries demonstrate a beaded appearance typical for fibromuscular dysplasia. Otherwise unremarkable CT angiogram of the neck. The carotid and vertebral arteries are patent bilaterally. --Acetylcholine receptor antibody ordered: pending NIF every 4 hours Appreciate Neurology Input Consider transfer to tertiary care center, as may need nerve conduction EMG and repetitive stimulation Needs to address goals of care Appreciate palliative care input DM II Continue Insulin sliding scale HTN Hold PO Meds while NPO Hydralazine as needed IV Hydralazine PRN FARHAN on CKD III Cr back to baseline after IV fluids Monitor Chronic PE, Left DVT On Eliquis Lovenox, while p.o. meds on hold Asthma Continue Breo Hyponatremia Hold urea, ethacrynic acid Monitor daily Sodium 130 Received IV fluids Hypokalemia Replace as needed DVT Px Lovenox SQ CODE STATUS DNR/DNI Admission and Anticipated Discharge Date Admission Date: March 22, 2022 Subjective Patient is seen and examined at bedside Headache better today Poor historian On PPN Denies chest pain, dyspnea, nausea, abd pain Review of Systems Review of Systems: All systems reviewed & are unremarkable except as noted in Subjective Physical Exam Physical Exam: Physical Exam: Vitals signs as noted above General Appearance:Thin, frail, elderly, no apparent distress Head: normocephalic, Atraumatic Eyes: normal inspection, EOMI Neck: supple, Trachea midline Respiratory/Chest: Normal breath sounds, CTA, No accessory muscle use Cardiovascular: S1, S2, No murmur Abdomen/GI:Soft, Non tender, Bowel sounds present Extremities/Musculoskeletal:normal inspection, no edema Neurologic/Psych:AAOX2, grossly no focal neurological deficits Skin: normal color, warm Results & Data Results & Data ([facility]) Vital Signs (Past 12 Hours) Vital Signs Temp Pulse Pulse Resp BP BP Pulse Ox 03/28/22 15:44 36.0 C L 83 18 175/71 H 98 03/28/22 15:37 78 03/28/22 11:55 36.2 C L 81 18 143/63 H 98 03/28/22 09:22 84 03/28/22 08:21 36.3 C L 76 16 151/72 H 100 03/28/22 07:35 81 16 98 03/28/22 06:04 36.7 C 87 18 155/68 H 97 Laboratory Results [facility] 03/28/22 05:46 Sodium 130 L Potassium 4.3 Chloride 101 Carbon Dioxide 24 BUN 13 Creatinine 0.70 Glucose 183 H Calcium 7.8 L
[2022-03-28] MEDS: CETIRIZINE HCL 10 MG TABLET PO SCH (20:18)
[2022-03-28] MEDS: ENOXAPARIN INJ 60 MG/0.6 ML SYR SQ SCH (20:19)
[2022-03-29] MEDS: INSULIN ASPART PER UNIT SC SCH ×6 (03:54→23:47)
[2022-03-29] MEDS: BUDESONIDE 0.5 MG/2 ML VIAL (PULMICORT) INH SCH ×2 (07:07→19:47)
[2022-03-29 07:28] LABS: Hematocrit (blood only) 30.8 % (37-47); Hemoglobin 10.5 g/dL (12.0-16.0); Mean Corpuscular Hemoglobin 29.8 pg (25-34); Mean Corpuscular Hgb Conc 34.1 g/dL (32-36); Mean Corpuscular Volume 87.5 fL (80-100); Mean Platelet Volume 8.4 fL (7.4-10.4); Platelet Count 254 K/uL (130-400); RDW Coefficient of Variation 16.3 % (11.5-14.5); RDW Standard Deviation 51.8 fL (36.4-46.3); Red Blood Count 3.52 M/uL (4.2-5.4); White Blood Count 4.85 K/uL (4.8-10.8)
[2022-03-29 08:13] LABS: BUN Creatinine Ratio 31.6 (10-20); Bilirubin,Total 0.6 mg/dl (0.2-1.0); Creatinine Clr Calc Pharmacy 61.9 ml/min; Est GFR (African American) 99.4 ml/min; Est GFR (Non-African American) 85.7 ml/min; Magnesium 1.7 mg/dl (1.7-2.4); Phosphorus 3.3 mg/dl (2.5-4.9); Potassium 3.5 mmol/L (3.5-5.1)
[2022-03-29] MEDS: INSULIN GLARGINE SOLOSTAR 100 UNITS/ML 3 ML PEN SC SCH (09:36)
[2022-03-29] MEDS: DOCUSATE SODIUM 100 MG CAP PO SCH ×2 (11:20→19:39)
[2022-03-29] MEDS: ENOXAPARIN INJ 60 MG/0.6 ML SYR SQ SCH ×2 (11:20→21:19)
[2022-03-29] MEDS: FLUoxetine HCL 20 MG CAP PO SCH (11:21)
[2022-03-29] MEDS: GABAPENTIN 100 MG CAP PO SCH ×2 (11:21→19:39)
[2022-03-29] MEDS: FLUTICASONE/VILANTEROL 200/25MCG 14 PUFFS/INHALER INH SCH ×2 (11:21→11:27)
[2022-03-29] MEDS: MULTIVITAMIN CHEWABLE TAB PO SCH (11:22)
[2022-03-29] MEDS: MONTELUKAST SODIUM 10 MG TABLET PO SCH (11:22)
[2022-03-29] MEDS: UMECLIDINIUM BROMIDE 62.5MCG/BLISTER 7 PUFFS/INHALER INH SCH (11:22)
[2022-03-29] MEDS ORDERED: PERIPHERAL TPN IV SCH (16:00)
[2022-03-29] MEDS ORDERED: D5W IV SCH (16:00)
[2022-03-29] MEDS ORDERED: AMINO ACIDS 4.25% IV SCH (16:00)
[2022-03-29] MEDS: CLINOLIPID 20% IV FAT EMULSION 100 ML IV SCH ×2 (16:09→19:03)
--- NOTE | 2022-03-29 16:26 | Hospitalist Progress Note ---
Date of Service March 29, 2022 Assessment & Plan (1) Weakness: Plan: Patient is an 81 yr female with H/O DM, HTN, CKD 3, anemia, PE/DVT on Eliquis, Asthma, Hyponatremia presents with weakness, garbled speech, confusion, dysphagia. Generalized weakness Dehydration, poor oral intake Was also on ethacrynic acid use Continue PT OT Severe oropharyngeal dysphagia --Video Swallow:Multiple episodes of silent tracheal aspiration with thin liquids, mildly thick liquids and pudding consistencies. High risk for aspiration pneumonia N.p.o. for now Aspiration precautions Continue PPN Appreciate palliative care input Goals of Care to be determined with family tomorrow Hypophosphatemia Replace electrolytes as needed Suspected UTI UTI ruled out Urine culture negative Received ceftriaxone for 3 days Suspecting myasthenia gravis --MRI Brain:No acute intracranial abnormality. --Neck CT:There is no hemorrhage, mass effect, or evidence of acute territorial ischemia by CT criteria. Unremarkable CT angiogram of the brain. Both internal carotid arteries demonstrate a beaded appearance typical for fibromuscular dysplasia. Otherwise unremarkable CT angiogram of the neck. The carotid and vertebral arteries are patent bilaterally. --Acetylcholine receptor antibody ordered: pending NIF every 4 hours Appreciate Neurology Input Consider transfer to tertiary care center, as may need nerve conduction EMG and repetitive stimulation Needs to address goals of care Appreciate palliative care input DM II Continue Insulin sliding scale HTN Hold PO Meds while NPO Hydralazine as needed IV Hydralazine PRN FARHAN on CKD III Cr back to baseline after IV fluids Monitor Chronic PE, Left DVT On Eliquis Lovenox, while p.o. meds on hold Asthma Continue Breo Hyponatremia Chronic Held urea, ethacrynic acid due to NPO status Monitor Sodium 130 Received IV fluids Hypokalemia Replace as needed DVT Px Lovenox SQ CODE STATUS DNR/DNI Admission and Anticipated Discharge Date Admission Date: March 22, 2022 Subjective Patient is seen and examined at bedside Poor historian Nods Yes to dizziness and nausea earlier today No other significant change from yesterday Continue PPN Denies chest pain, dyspnea, abd pain Review of Systems Review of Systems: All systems reviewed & are unremarkable except as noted in Subjective Physical Exam Physical Exam: Physical Exam: Vitals signs as noted above General Appearance:Thin, frail, elderly, no apparent distress Head: normocephalic, Atraumatic Eyes: normal inspection, EOMI Neck: supple, Trachea midline Respiratory/Chest: Normal breath sounds, CTA, No accessory muscle use Cardiovascular: S1, S2, No murmur Abdomen/GI:Soft, Non tender, Bowel sounds present Extremities/Musculoskeletal:normal inspection, no edema Neurologic/Psych:AAOX2, grossly no focal neurological deficits Skin: normal color, warm Results & Data Results & Data ([facility]) Vital Signs (Past 12 Hours) Vital Signs Temp Pulse Pulse Resp BP Pulse Ox 03/29/22 15:32 36.6 C 75 18 160/62 H 97 03/29/22 11:21 36.7 C 79 18 149/61 H 98 03/29/22 08:58 79 03/29/22 08:01 36.6 C 80 18 160/66 H 97 03/29/22 07:08 76 18 95 Laboratory Results Short CBC 03/29/22 Range/Units 05:21 WBC 4.85 (4.8-10.8) K/uL Hgb 10.5 L (12.0-16.0) g/dL Hct 30.8 L (37-47) % Plt Count 254 (130-400) K/uL BMP 03/29/22 05:21 Sodium 130 L Potassium 3.5 Chloride 98 Carbon Dioxide 25 BUN 18 Creatinine 0.57 L Glucose 145 H Calcium 8.0 L Liver Function 03/29/22 03/29/22 Range/Units 05:21 05:21 Total Bilirubin 0.6 (0.2-1.0) mg/dl AST 20 (13-39) U/L ALT 20 (7-52) U/L Alkaline Phosphatase 68 (34-104) U/L Albumin 2.8 L (3.4-5.0) gm/dl
[2022-03-29] MEDS: CETIRIZINE HCL 10 MG TABLET PO SCH (19:39)
[2022-03-30] MEDS: INSULIN ASPART PER UNIT SC SCH ×5 (04:10→23:49)
[2022-03-30 06:39] LABS: BUN Creatinine Ratio 40.7 (10-20); Calcium 7.6 mg/dl (8.5-10.1); Creatinine Clr Calc Pharmacy 65.3 ml/min; Est GFR (African American) 101.1 ml/min; Est GFR (Non-African American) 87.3 ml/min; Magnesium 1.6 mg/dl (1.7-2.4); Phosphorus 3.3 mg/dl (2.5-4.9); Potassium 3.1 mmol/L (3.5-5.1)
[2022-03-30] MEDS: BUDESONIDE 0.5 MG/2 ML VIAL (PULMICORT) INH SCH ×2 (07:00→20:11)
[2022-03-30] MEDS: GABAPENTIN 100 MG CAP PO SCH ×2 (07:17→18:58)
[2022-03-30] MEDS: DOCUSATE SODIUM 100 MG CAP PO SCH ×2 (07:17→18:58)
[2022-03-30] MEDS: FLUoxetine HCL 20 MG CAP PO SCH (07:17)
[2022-03-30] MEDS: MULTIVITAMIN CHEWABLE TAB PO SCH (07:18)
[2022-03-30] MEDS: MONTELUKAST SODIUM 10 MG TABLET PO SCH (07:18)
[2022-03-30] MEDS: INSULIN GLARGINE SOLOSTAR 100 UNITS/ML 3 ML PEN SC SCH (08:07)
[2022-03-30] MEDS: UMECLIDINIUM BROMIDE 62.5MCG/BLISTER 7 PUFFS/INHALER INH SCH (08:13)
[2022-03-30] MEDS: ENOXAPARIN INJ 60 MG/0.6 ML SYR SQ SCH ×2 (08:14→20:01)
[2022-03-30] MEDS: FLUTICASONE/VILANTEROL 200/25MCG 14 PUFFS/INHALER INH SCH (08:14)
[2022-03-30] MEDS ORDERED: SODIUM CHLORIDE 0.9% 500 ML IV ONE (08:33)
[2022-03-30] MEDS ORDERED: MAGNESIUM SULFATE / D5W 1 GM/100 ML BAG IV ONE (08:47)
[2022-03-30] MEDS: POTASSIUM CHLORIDE / WTR 10 MEQ/100 ML PLCT IV SCH ×2 (09:13→10:16)
--- NOTE | 2022-03-30 09:52 | Pharmacy Report ---
Pharmacy Glycemic Short Note 2 - Date of Service March 30, 2022 - Glycemic Short BSG Results (Last 24 hours): 03/29/22 03/29/22 03/29/22 12:05 16:54 20:00 Glucose POC Glucose 143 H 81 110 H 03/29/22 03/30/22 03/30/22 23:43 04:03 05:45 Glucose 130 H POC Glucose 147 H 147 H 03/30/22 07:57 Glucose POC Glucose 152 H OUTPATIENT ANTIDIABETIC REGIMEN: * Empagliflozin 10mg PO qAM * Metformin 500mg PO BID * Repaglinide 1mg PO TID * HbA1c: 8.3% (12/18/21) ASSESSMENT: 03/30/22 * Blood sugars at goal, patient receiving approximately 10 units basal and 4 units correctional insulin per day * Pt remains NPO, on PPN, containing 60g dextrose/day, no insulin in PN bag * Change BSG checks to Q6H, no further changing in dosing needed at this time 03/27/22 * BSGs yesterday were [phone] mg/dL. BSGs today are 151-131 mg/dL. * Patient to be started on PPN today which is equivalent to D5 running previously. * Will continue Lantus 10 units daily + Novolog as BSGs previously within goal range with this. One elevated BSG yesterday due to late administration of Lantus. * Change Novolog to q4 due to PPN initiation. BACKGROUND * Ms Flores is an 81yo diabetic F admitted with generalized weakness, garbled speech, confusion, dysphagia. * PO meds have been held on admission in the setting of dysphagia, NPO. * Pt was started on SQ basal/bolus insulin regimen. * Pharmacy will continue to follow and adjust as indicated. PLAN FOR INPATIENT GLYCEMIC CONTROL: * Hold outpatient oral diabetes medications * Basal insulin * Lantus 10 units SQ daily * Bolus insulin * NovoLog per scale ACHS or Q6hrs while NPO * Goal Range: Low 110 mg/dL - High 140 mg/dL * Correction Factor: 20 mg/dL/unit * Nutritional / Prandial insulin per carb ratio of 1 unit per 10 grams CHO consumed
[2022-03-30] MEDS: CLINOLIPID 20% IV FAT EMULSION 100 ML IV SCH ×2 (15:55→17:59)
[2022-03-30] MEDS ORDERED: D5W IV SCH (16:00)
[2022-03-30] MEDS ORDERED: AMINO ACIDS 4.25% IV SCH (16:00)
[2022-03-30] MEDS ORDERED: PERIPHERAL TPN IV SCH (16:00)
--- NOTE | 2022-03-30 18:10 | Hospitalist Progress Note ---
Date of Service March 30, 2022 Assessment & Plan (1) Weakness: Plan: Patient is an 81 yr female with H/O DM, HTN, CKD 3, anemia, PE/DVT on Eliquis, Asthma, Hyponatremia presents with weakness, garbled speech, confusion, dysphagia. Generalized weakness Dehydration, poor oral intake Was also on ethacrynic acid use Continue PT OT Severe oropharyngeal dysphagia --Video Swallow:Multiple episodes of silent tracheal aspiration with thin liquids, mildly thick liquids and pudding consistencies. High risk for aspiration pneumonia N.p.o. for now Aspiration precautions Continue PPN Appreciate palliative care input Goals of Care to be determined with family when available Continue current management Hypokalemia Hypomagnesemia Hypophosphatemia Replace electrolytes as needed UTI ruled out Urine culture negative Received ceftriaxone for 3 days Suspecting myasthenia gravis --MRI Brain:No acute intracranial abnormality. --Neck CT:There is no hemorrhage, mass effect, or evidence of acute territorial ischemia by CT criteria. Unremarkable CT angiogram of the brain. Both internal carotid arteries demonstrate a beaded appearance typical for fibromuscular dysplasia. Otherwise unremarkable CT angiogram of the neck. The carotid and vertebral arteries are patent bilaterally. --Acetylcholine receptor antibody ordered: pending NIF every 4 hours Appreciate Neurology Input Consider transfer to tertiary care center, as may need nerve conduction EMG and repetitive stimulation Needs to address goals of care Appreciate palliative care input DM II Continue Insulin sliding scale HTN Hold PO Meds while NPO IV Hydralazine PRN FARHAN on CKD III Cr back to baseline after IV fluids Monitor Chronic PE, Left DVT On Eliquis Lovenox, while p.o. meds on hold Asthma Continue Breo Hyponatremia Likely Chronic Held urea, ethacrynic acid due to NPO status Monitor Sodium 128 Today Received IV fluids DVT Px Lovenox SQ CODE STATUS DNR/DNI Admission and Anticipated Discharge Date Admission Date: March 22, 2022 Subjective Patient is seen and examined at bedside Poor historian Sleeping comfortably during my encounter Noted electrolyte abnormalities on blood work Review of Systems Review of Systems: All systems reviewed & are unremarkable except as noted in Subjective Physical Exam Physical Exam: Physical Exam: Vitals signs as noted above General Appearance:Thin, frail, elderly, no apparent distress Head: normocephalic, Atraumatic Eyes: normal inspection, EOMI Neck: supple, Trachea midline Respiratory/Chest: Normal breath sounds, CTA, No accessory muscle use Cardiovascular: S1, S2, No murmur Abdomen/GI:Soft, Non tender, Bowel sounds present Extremities/Musculoskeletal:normal inspection, no edema Neurologic/Psych:AAOX2, grossly no focal neurological deficits Skin: normal color, warm Results & Data Results & Data ([facility]) Vital Signs (Past 12 Hours) Vital Signs Temp Pulse Pulse Pulse Resp BP Pulse Ox 03/30/22 15:37 82 03/30/22 11:10 81 20 151/67 H 98 03/30/22 09:54 37.2 C 03/30/22 07:39 36.0 C L 75 20 164/63 H 97 03/30/22 07:13 74 03/30/22 07:01 74 16 94 03/30/22 06:32 36.7 C 78 18 153/54 H 100 Laboratory Results [facility] 03/30/22 05:45 Sodium 128 L Potassium 3.1 L Chloride 97 L Carbon Dioxide 25 BUN 22 Creatinine 0.54 L Glucose 130 H Calcium 7.6 L
[2022-03-30] MEDS: CETIRIZINE HCL 10 MG TABLET PO SCH (18:58)
[2022-03-30 23:32] LABS: Appearance Urine Cloudy (Clear); Bacteria Urine Automated Negative (Negative); Bilirubin Urine Negative (Negative); Blood Urine 2+ (Negative); Color Urine Yellow; Glucose Urine UA 1+ (Negative); Ketones Urine 1+ (Negative); Leukocyte Esterase Urine 2+ (Negative); Nitrite Urine Negative (Negative); Protein Urine Negative (Negative); RBC Urine Automated >30 /hpf (0-4); Specific Gravity Urine 1.015 (1.000-1.030); Urobilinogen Urine Negative (Negative); WBC Urine Automated >30 /hpf (0-5)
[2022-03-31] MEDS: INSULIN ASPART PER UNIT SC SCH ×3 (05:51→18:05)
[2022-03-31] MEDS: DOCUSATE SODIUM 100 MG CAP PO SCH ×2 (06:55→20:14)
[2022-03-31] MEDS: GABAPENTIN 100 MG CAP PO SCH ×2 (06:55→20:15)
[2022-03-31] MEDS: FLUoxetine HCL 20 MG CAP PO SCH (06:55)
[2022-03-31] MEDS: MULTIVITAMIN CHEWABLE TAB PO SCH (06:56)
[2022-03-31] MEDS: MONTELUKAST SODIUM 10 MG TABLET PO SCH (06:56)
[2022-03-31 07:23] LABS: BUN Creatinine Ratio 38.2 (10-20); Calcium 7.5 mg/dl (8.5-10.1); Creatinine Clr Calc Pharmacy 64.1 ml/min; Est GFR (African American) 100.5 ml/min; Est GFR (Non-African American) 86.7 ml/min; Magnesium 1.8 mg/dl (1.7-2.4); Phosphorus 3.1 mg/dl (2.5-4.9); Potassium 3.3 mmol/L (3.5-5.1)
[2022-03-31] MEDS: BUDESONIDE 0.5 MG/2 ML VIAL (PULMICORT) INH SCH ×2 (07:27→19:12)
[2022-03-31] MEDS: ENOXAPARIN INJ 60 MG/0.6 ML SYR SQ SCH ×2 (07:43→20:15)
[2022-03-31] MEDS: FLUTICASONE/VILANTEROL 200/25MCG 14 PUFFS/INHALER INH SCH (07:43)
[2022-03-31] MEDS: INSULIN GLARGINE SOLOSTAR 100 UNITS/ML 3 ML PEN SC SCH (07:43)
[2022-03-31] MEDS: UMECLIDINIUM BROMIDE 62.5MCG/BLISTER 7 PUFFS/INHALER INH SCH (07:44)
[2022-03-31] MEDS ORDERED: NSS + 20MEQ KCL 20 MEQ/1,000 ML BAG IV ONE (09:30)
[2022-03-31] MEDS: POTASSIUM CHLORIDE / WTR 10 MEQ/100 ML PLCT IV SCH ×2 (09:32→10:22)
[2022-03-31] MEDS ORDERED: ACETAMINOPHEN 650 MG SUPP PR PRN (10:15)
--- NOTE | 2022-03-31 10:15 | Palliative Care Progress Note ---
Date of Service March 31, 2022 Assessment & Plan (1) Weakness: Plan: No change. Not able to participate in PT. ACh antibody negative. Continue PPN (2) Dysphagia: Plan: On parenteral nutrition (3) Pain: Plan: Nonspecific with prolonged immobility. Unable to take po meds. Add pr tylenol. (4) Palliative care encounter: Plan: I spoke with her grandson, Cisco Flores, who is her POA. He and his brother Dung are interested in a family meeting to discuss goals of care in more detail. Unfortunately, neither are able to come in today. Family meeting scheduled for 1pm tomorrow. Admission and Anticipated Discharge Date Admission Date: March 22, 2022 Subjective Remains very weak. Continues on PPN. Nods or shakes her head to most que stions. Generally appropriate answers. Nodded when asked if having pain. Shook her head when asked if she could tell me where. Review of Systems Review of Systems: [place] Symptom Assessment Scale Pain 1/3 Dyspnea 0/3 Anxiety 0/3 Fatigue 3/3 Palliative Performance Score 20% Physical Exam Constitutional: + thin and + frail appearing ENMT: Mouth: + dry oral mucous membranes Respiratory: no labored breathing and does not use accessory muscles Cardiovascular: Rate/Rhythm: regular rate and regular rhythm Gastrointestinal (Abdomen): soft, nontender Musculoskeletal: Extremities: + muscle atrophy Neurologic: lethargic Results & Data ([facility]) Vital Signs (Past 12 Hours) Vital Signs Temp Pulse Pulse Resp BP Pulse Ox 03/31/22 07:27 77 18 97 03/31/22 07:10 72 03/31/22 06:29 97.5 F L 75 16 157/67 H 96 03/31/22 03:08 97.3 F L 75 16 143/58 H 98 03/30/22 23:25 87 03/30/22 23:08 97.3 F L 85 16 163/61 H 96 PG Care Time/CCT Total # of Minutes Spent Total Time Spent: 30 Total Time Spent with Patient: Total time spent is greater than 50% in coordination of care (as documented) at patient's floor/unit and/or counseling patient: symptom management, goals of care, coordination of care Coding Level of Care Code 79492 Subseq Hosp Care Lvl 2 Diagnoses Weakness R53.1 Dysphagia R13.10 Palliative care encounter Z51.5 Pain R52
--- NOTE | 2022-03-31 12:30 | Pharmacy Report ---
PHA: Parenteral Nutrition Con - Date of Service March 31, 2022 - Scope Pharmacy was consulted on 03/27 to manage parenteral nutrition orders for this patient. - Subjective The patient is currently on day 5 of peripheral parenteral nutrition for prolonged NPO status - Objective Height: 5 ft 3 in Weight: 59.2 kg Diet: NPO Intake & Output (24hrs):: Intake & Output 03/29/22 03/30/22 03/31/22 04/01/22 06:59 06:59 06:59 06:59 Intake Total 1909 / 1910 1485 / 1485 2237.167 / 2237.167 183.333 / 183.333 Output Total 1925 / 1925 975 / 975 1225 / 1225 Balance -15 / -15 510 / 510 1012.167 / 1012.167 183.333 / 183.333 Weight 59.1 kg 59 kg 59.2 kg Laboratory Data (Last 24 Hr):: 03/31/22 05:48 Sodium 127 L Potassium 3.3 L Chloride 96 L Carbon Dioxide 25 BUN 21 Creatinine 0.55 L Glucose 149 H Calcium 7.5 L Phosphorus 3.1 Magnesium 1.8 Nutrition Assessment:: Please refer to the Notes section of the EMR for the most recent second cutter note. - Plan For day 5 of PN administration, the following will be ordered below. Discussed with provider and plans for continued PPN until goals of care established. Per notes, meeting at 1pm tomorrow. Provider wanting to keep fluids around ~1500 mls with tpn for today. Has additional fluids to run today with PPN since sodium low and k low. Provider aware that we are unable to adjust much in PPN as we are at max mOsm/L for peripheral access and that outside electrolyte replacements will need to be ordered Macronutrients Amino acids 56 grams/day Dextrose 66 grams/day Lipids 40 grams/day Micronutrients Sodium chloride 100 mEq Magnesium sulfate 8.12 mEq Calcium gluconate 4.65 mEq Sodium phosphate 24 mM Multivitamins 10 mL Trace Elements 1 mL Additional additives: thiamine 100 mg Total volume 1392 mL + 200 ml (lipids) to be infused over 24 hrs will provide 848 kcal/day Final osmolarity ~888 mOsm/L (maximum for PPN is 900 mOsm/L) Labs, as indicated, will be ordered per protocol Pharmacy will continue to follow and adjust parenteral nutrition orders on a daily basis. Thank you for allowing us to participate in the care of this patient.
[2022-03-31] MEDS ORDERED: PERIPHERAL TPN IV SCH (16:00)
[2022-03-31] MEDS ORDERED: D5W IV SCH (16:00)
[2022-03-31] MEDS ORDERED: AMINO ACIDS 4.25% IV SCH (16:00)
[2022-03-31] MEDS: CLINOLIPID 20% IV FAT EMULSION 100 ML IV SCH ×2 (16:05→18:10)
--- NOTE | 2022-03-31 17:19 | Hospitalist Progress Note ---
Date of Service March 31, 2022 Assessment & Plan (1) Weakness: Plan: Patient is an 81 yr female with H/O DM, HTN, CKD 3, anemia, PE/DVT on Eliquis, Asthma, Hyponatremia presents with weakness, garbled speech, confusion, dysphagia. Generalized weakness Dehydration, poor oral intake Was also on ethacrynic acid use Continue PT OT Severe oropharyngeal dysphagia --Video Swallow:Multiple episodes of silent tracheal aspiration with thin liquids, mildly thick liquids and pudding consistencies. High risk for aspiration pneumonia N.p.o. for now Aspiration precautions Continue PPN Appreciate palliative care input Goals of Care to be determined with family when available Family meeting to be arranged tomorrow at 1PM Hypokalemia Hypomagnesemia Hypophosphatemia Replace electrolytes as needed UTI ruled out Urine culture negative Received ceftriaxone for 3 days Suspecting myasthenia gravis --MRI Brain:No acute intracranial abnormality. --Neck CT:There is no hemorrhage, mass effect, or evidence of acute territorial ischemia by CT criteria. Unremarkable CT angiogram of the brain. Both internal carotid arteries demonstrate a beaded appearance typical for fibromuscular dysplasia. Otherwise unremarkable CT angiogram of the neck. The carotid and vertebral arteries are patent bilaterally. --Acetylcholine receptor antibody ordered: pending NIF every 4 hours Appreciate Neurology Input Consider transfer to tertiary care center, as may need nerve conduction EMG and repetitive stimulation Needs to address goals of care Appreciate palliative care input DM II Continue Insulin sliding scale HTN Hold PO Meds while NPO IV Hydralazine PRN FARHAN on CKD III Cr back to baseline after IV fluids Monitor Chronic PE, Left DVT On Eliquis Lovenox, while p.o. meds on hold Asthma Continue Breo Hyponatremia Likely Chronic Held urea, ethacrynic acid due to NPO status Also due to poor oral intake Monitor Sodium 127 Today Gentle IV fluids DVT Px Lovenox SQ CODE STATUS DNR/DNI Admission and Anticipated Discharge Date Admission Date: March 22, 2022 Subjective Patient is seen and examined at bedside Poor historian Clinically no significant change from yesterday Has generalized weakness Palliative Care unable to have meeting with family today Review of Systems Review of Systems: All systems reviewed & are unremarkable except as noted in Subjective Physical Exam Physical Exam: Physical Exam: Vitals signs as noted above General Appearance:Thin, frail, elderly, no apparent distress Head: normocephalic, Atraumatic Eyes: normal inspection, EOMI Neck: supple, Trachea midline Respiratory/Chest: Normal breath sounds, CTA, No accessory muscle use Cardiovascular: S1, S2, No murmur Abdomen/GI:Soft, Non tender, Bowel sounds present Extremities/Musculoskeletal:normal inspection, no edema Neurologic/Psych:AAOX2, grossly no focal neurological deficits Skin: normal color, warm Results & Data Results & Data ([facility]) Vital Signs (Past 12 Hours) Vital Signs Temp Pulse Pulse Pulse Resp BP BP 03/31/22 16:47 36.2 C L 03/31/22 16:28 35.7 C L 70 16 134/52 L 03/31/22 14:53 66 03/31/22 11:25 36.5 C 73 16 137/57 L 03/31/22 07:27 77 18 03/31/22 07:10 72 03/31/22 06:29 36.4 C L 75 16 157/67 H Pulse Ox 03/31/22 16:47 03/31/22 16:28 98 03/31/22 14:53 03/31/22 11:25 95 03/31/22 07:27 97 03/31/22 07:10 03/31/22 06:29 96 Laboratory Results BMP 03/31/22 05:48 Sodium 127 L Potassium 3.3 L Chloride 96 L Carbon Dioxide 25 BUN 21 Creatinine 0.55 L Glucose 149 H Calcium 7.5 L Urine 03/30/22 Range/Units 23:00 Urine Color Yellow Urine Appearance Cloudy A (Clear) Urine pH 6.0 (4.5-7.5) Ur Specific [place] 1.015 (1.000-1.030) Urine Protein Negative (Negative) Urine Glucose (UA) 1+ H (Negative)
[2022-03-31] MEDS: CETIRIZINE HCL 10 MG TABLET PO SCH (20:14)
[2022-04-01] MEDS: INSULIN ASPART PER UNIT SC SCH ×3 (00:37→12:32)
[2022-04-01 06:48] LABS: Hematocrit (blood only) 32.4 % (37-47); Hemoglobin 10.9 g/dL (12.0-16.0); Mean Corpuscular Hemoglobin 29.7 pg (25-34); Mean Corpuscular Hgb Conc 33.6 g/dL (32-36); Mean Corpuscular Volume 88.3 fL (80-100); Mean Platelet Volume 8.3 fL (7.4-10.4); Platelet Count 244 K/uL (130-400); RDW Coefficient of Variation 16.4 % (11.5-14.5); RDW Standard Deviation 52.8 fL (36.4-46.3); Red Blood Count 3.67 M/uL (4.2-5.4); White Blood Count 5.56 K/uL (4.8-10.8)
[2022-04-01 07:07] LABS: Calcium 7.9 mg/dl (8.5-10.1); Creatinine Clr Calc Pharmacy 70.5 ml/min; Est GFR (African American) 103.7 ml/min; Est GFR (Non-African American) 89.5 ml/min; Magnesium 1.7 mg/dl (1.7-2.4); Phosphorus 3.1 mg/dl (2.5-4.9); Potassium 3.4 mmol/L (3.5-5.1)
[2022-04-01] MEDS: BUDESONIDE 0.5 MG/2 ML VIAL (PULMICORT) INH SCH (07:17)
[2022-04-01] MEDS: POTASSIUM CHLORIDE / WTR 10 MEQ/100 ML PLCT IV SCH ×3 (08:27→10:35)
[2022-04-01] MEDS: ENOXAPARIN INJ 60 MG/0.6 ML SYR SQ SCH (08:28)
[2022-04-01] MEDS ORDERED: MAGNESIUM SULFATE / D5W 1 GM/100 ML BAG IV ONE (08:30)
[2022-04-01] MEDS ORDERED: INSULIN GLARGINE SOLOSTAR 100 UNITS/ML 3 ML PEN SC SCH (09:00)
[2022-04-01] MEDS: GABAPENTIN 100 MG CAP PO SCH (09:09)
[2022-04-01] MEDS: MULTIVITAMIN CHEWABLE TAB PO SCH (09:09)
[2022-04-01] MEDS: MONTELUKAST SODIUM 10 MG TABLET PO SCH (09:09)
[2022-04-01] MEDS: FLUoxetine HCL 20 MG CAP PO SCH (09:09)
[2022-04-01] MEDS: DOCUSATE SODIUM 100 MG CAP PO SCH (09:09)
[2022-04-01] MEDS: UMECLIDINIUM BROMIDE 62.5MCG/BLISTER 7 PUFFS/INHALER INH SCH (09:10)
[2022-04-01] MEDS: FLUTICASONE/VILANTEROL 200/25MCG 14 PUFFS/INHALER INH SCH (10:03)
--- NOTE | 2022-04-01 11:08 | Hospitalist Progress Note ---
Date of Service April 01, 2022 Assessment & Plan (1) Weakness: Plan: 81 yr female with H/O DM, HTN, CKD 3, anemia, PE/DVT on Eliquis, Asthma, Hyponatremia presents with weakness, garbled speech, confusion, dysphagia. Generalized weakness Dehydration, poor oral intake Was also on ethacrynic acid use Continue PT OT Severe oropharyngeal dysphagia --Video Swallow:Multiple episodes of silent tracheal aspiration with thin liquids, mildly thick liquids and pudding consistencies. High risk for aspiration pneumonia N.p.o. for now Aspiration precautions Continue PPN Appreciate palliative care input Palliative planning GOC meeting with family today at 1PM Hypokalemia Hypomagnesemia Replace electrolytes as needed UTI ruled out Urine culture negative Received ceftriaxone for 3 days --MRI Brain:No acute intracranial abnormality. --Neck CT:There is no hemorrhage, mass effect, or evidence of acute territorial ischemia by CT criteria. Unremarkable CT angiogram of the brain. Both internal carotid arteries demonstrate a beaded appearance typical for fibromuscular dysplasia. Otherwise unremarkable CT angiogram of the neck. The carotid and vertebral arteries are patent bilaterally. --Acetylcholine receptor antibody ordered: <0.3 NIF every 4 hours Appreciate Neurology Input DM II Continue Insulin sliding scale HTN Hold PO Meds while NPO IV Hydralazine PRN FARHAN on CKD III Cr back to baseline after IV fluids Monitor Chronic PE, Left DVT On Eliquis Lovenox, while p.o. meds on hold Asthma Continue Breo Hyponatremia Likely Chronic Held urea, ethacrynic acid due to NPO status Also due to poor oral intake Monitor Sodium 129 Today Gentle IV fluids DVT Px Lovenox SQ CODE STATUS DNR/DNI Admission and Anticipated Discharge Date Admission Date: March 22, 2022 Subjective Patient seen and examined. Was sleepy. Opens eye to rousing but did not answer any questions. ROS could not be performed Physical Exam Constitutional: + well hydrated; no acute distress Thin elderly woman Eyes: PERRL, conjunctivae normal, anicteric sclerae ENMT: external ear and nose normal, oropharynx normal Respiratory: normal respiratory effort, lungs clear to auscultation Cardiovascular: Rate/Rhythm: regular rate S1 S2 Gastrointestinal (Abdomen): normal bowel sounds, soft, nontender, no hepatosplenomegaly Musculoskeletal: No pedal edema Neurologic: Drowsy but opens eye to rousing. Did not answer questions/follow commands. Limited exam Results & Data Results & Data ([facility]) Vital Signs (Past 12 Hours) Vital Signs Temp Pulse Pulse Resp BP Pulse Ox 04/01/22 07:34 83 04/01/22 07:18 81 20 96 04/01/22 06:42 36.8 C 94 H 18 114/61 93 04/01/22 03:00 36.1 C L 75 18 151/66 H 96 04/01/22 00:00 80 03/31/22 23:35 36.4 C L 79 18 153/66 H 96 Laboratory Results Abnormal lab results 03/31/22 03/31/22 04/01/22 Range/Units 11:46 18:04 00:22 RBC (4.2-5.4) M/uL Hgb (12.0-16.0) g/dL Hct (37-47) % RDW Std Deviation (36.4-46.3) fL RDW Coeff of Miguelangel (11.5-14.5) % Sodium (136-145) mmol/L Potassium (3.5-5.1) mmol/L BUN (6-23) mg/dl Creatinine (0.6-1.2) mg/dl BUN/Creatinine Ratio (10-20) Glucose (70-99(Fasting)) mg/dl POC Glucose 145 H 119 H 156 H (70-99) mg/dl Calcium (8.5-10.1) mg/dl 04/01/22 04/01/22 04/01/22 Range/Units 05:13 06:04 06:04 RBC 3.67 L (4.2-5.4) M/uL Hgb 10.9 L (12.0-16.0) g/dL Hct 32.4 L (37-47) % RDW Std Deviation 52.8 H (36.4-46.3) fL RDW Coeff of Miguelangel 16.4 H (11.5-14.5) % Sodium 129 L (136-145) mmol/L Potassium 3.4 L (3.5-5.1) mmol/L BUN 24 H (6-23) mg/dl Creatinine 0.50 L (0.6-1.2) mg/dl BUN/Creatinine Ratio 48.0 H (10-20) Glucose 151 H (70-99(Fasting)) mg/dl POC Glucose 181 H (70-99) mg/dl Calcium 7.9 L (8.5-10.1) mg/dl
[2022-04-01] MEDS ORDERED: GLYCOPYRROLATE 0.2 MG/ML VIAL IV PRN (13:23)
[2022-04-01] MEDS ORDERED: ONDANSETRON INJ 2 MG/ML 2 ML VIAL IV PRN (13:23)
[2022-04-01] MEDS ORDERED: LORazepam 0.5 MG TAB PO PRN (13:23)
[2022-04-01] MEDS ORDERED: MoRPHine SULFATE 2 MG/ML CARP IV PRN (13:23)
--- NOTE | 2022-04-01 14:36 | Palliative Care Progress Note ---
Date of Service April 01, 2022 Assessment & Plan (1) Pain: Plan: Tylenol ordered as needed. Will add morphine prn (2) Dysphagia: Plan: Has been on PPN. Family opting for comfort measures and stopping artificial nutrition. Notified pharmacy. (3) Palliative care encounter: Plan: I met with Cleo's grandson, Cisco, who is his POA. He has spoken with his brothers and they are all in agreement that Cleo would not want to live like this. He notes that since his grandfather , she has been depressed and more and more withdrawn. The brothers feel that she has "given up" and is ready to be with her . We discussed shift of care from problem oriented to comfort oriented. Will add morphine as above for pain and stop parenteral nutrition. Cisco asked about prognosis which is likely less than 10 days. We discussed SNF with hospice if she is stable for discharge. Notified Dr. Alvarez Admission and Anticipated Discharge Date Admission Date: March 22, 2022 Subjective Does not respond to voice or touch. Review of Systems Review of Systems: Unobtainable due to reduced consciousness [place] Symptom Assessment Scale Pain by observation 1/3 (furrowed brow) Dyspnea by observation 0/3 Palliative Performance Score 20% Physical Exam Constitutional: + thin and + frail appearing Respiratory: normal respiratory effort; no labored breathing Cardiovascular: Rate/Rhythm: regular rate and regular rhythm Gastrointestinal (Abdomen): soft, nontender Musculoskeletal: Extremities: + muscle atrophy Skin: warm and dry Results & Data ([facility]) Vital Signs (Past 12 Hours) Vital Signs Temp Pulse Pulse Resp BP Pulse Ox 04/01/22 11:12 97.7 F 98 H 16 134/73 96 04/01/22 07:34 83 04/01/22 07:18 81 20 96 04/01/22 06:42 98.2 F 94 H 18 114/61 93 04/01/22 03:00 97.0 F L 75 18 151/66 H 96 PG Care Time/CCT Total # of Minutes Spent Total Time Spent: 40 Total Time Spent with Patient: Total time spent is greater than 50% in coordination of care (as documented) at patient's floor/unit and/or counseling patient:goals of care, prognosis, symptom management, family education and support, coordination of care Coding Level of Care Code 95836 Subseq Hosp Care Lvl 3 Diagnoses Pain R52 Palliative care encounter Z51.5 Dysphagia R13.10
[2022-04-01] MEDS ORDERED: CLINOLIPID 20% IV FAT EMULSION 100 ML IV SCH (16:00)
[2022-04-01] MEDS ORDERED: D5W IV SCH (16:00)
[2022-04-01] MEDS ORDERED: AMINO ACIDS 4.25% IV SCH (16:00)
[2022-04-01] MEDS ORDERED: PERIPHERAL TPN IV SCH (16:00)
--- NOTE | 2022-04-02 12:15 | Hospitalist Progress Note ---
Date of Service April 02, 2022 Assessment & Plan (1) Weakness: Plan: 81 yr female with H/O DM, HTN, CKD 3, anemia, PE/DVT on Eliquis, Asthma, Hyponatremia presents with weakness, garbled speech, confusion, dysphagia. Generalized weakness Dehydration, poor oral intake Was also on ethacrynic acid use Severe oropharyngeal dysphagia --Video Swallow:Multiple episodes of silent tracheal aspiration with thin liquids, mildly thick liquids and pudding consistencies. High risk for aspiration pneumonia N.p.o. for now Aspiration precautions Family had GOC with Palliative specialist yesterday and transitioned patient to comfort measures only Palliative on board Hypokalemia Hypomagnesemia UTI ruled out Urine culture negative Received ceftriaxone for 3 days --MRI Brain:No acute intracranial abnormality. --Neck CT:There is no hemorrhage, mass effect, or evidence of acute territorial ischemia by CT criteria. Unremarkable CT angiogram of the brain. Both internal carotid arteries demonstrate a beaded appearance typical for fibromuscular dysplasia. Otherwise unremarkable CT angiogram of the neck. The carotid and vertebral arteries are patent bilaterally. 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 STATUS DNR/DNI Admission and Anticipated Discharge Date Admission Date: March 22, 2022 Subjective Patient seen and examined Not alert or oriented Grimaces to noxious stimuli Review of Systems Review of Systems: Unobtainable due to reduced consciousness Physical Exam Constitutional: + well hydrated; no acute distress ENMT: External ear normal, nose normal Respiratory: normal respiratory effort, lungs clear to auscultation Cardiovascular: Rate/Rhythm: regular rate S1 S2 Gastrointestinal (Abdomen): normal bowel sounds, soft, nontender, no hepatosplenomegaly Musculoskeletal: No pedal edema Neurologic: Not awake or alert. Grimaces to noxious stimuli.
--- NOTE | 2022-04-02 15:11 | Palliative Care Progress Note ---
Date of Service April 02, 2022 Assessment & Plan (1) Pain: Plan: Morphine available prn as is pr tylenol. She has not needed any pain medications and tolerates care per RN. (2) Dysphagia: Plan: PPN stopped yesterday per family wishes. Focus of care is comfort. (3) Palliative care encounter: Plan: I left a message with Cisco with an update. Cleo is likely to within the next few days. Palliative care will follow. Admission and Anticipated Discharge Date Admission Date: March 22, 2022 Subjective Nods her head when I talk about her grandsons and shakes her head when asked if having pain. Does not open eyes. Review of Systems Review of Systems: Unobtainable due to reduced consciousness ESAS Pain 0/3 Dyspnea by observation 0/3 PPS 20% Physical Exam Constitutional: + thin and + frail appearing ENMT: Mouth: + dry oral mucous membranes Respiratory: normal respiratory effort; no labored breathing Cardiovascular: no edema Gastrointestinal (Abdomen): soft Musculoskeletal: Extremities: + muscle atrophy Skin: warm and dry PG Care Time/CCT Total # of Minutes Spent Total Time Spent with Patient: Total time spent is greater than 50% in coordination of care (as documented) at patient's floor/unit and/or counseling patient: Coding Level of Care Code 68756 Subseq Hosp Care Lvl 2 Diagnoses Pain R52 Palliative care encounter Z51.5 Dysphagia R13.10
[2022-04-03] MEDS ORDERED: MoRPHine SULFATE 2 MG/ML CARP IV STA (06:16)
--- NOTE | 2022-04-03 09:27 | Death Pronouncement Note ---
Date of Service April 03, 2022 Pronouncement Note Admission Date March 22, 2022 Date and Time of Date of : 04/03/22 Time of : 08:59 Preliminary Cause of (1) Adult failure to thrive: (2) Severe malnutrition: (3) Oropharyngeal dysphagia: Summary Was called to evaluate patient. Patient was noted to have no breathing movement. Absent carotid pulse. Pupils were fixed and dilated Absent breath sounds and absent heart sounds. Patient was pronounced Yvette Peck was called and notified. Additional Data Attending physician: Shahrzad Alvarez MD
--- NOTE | 2022-04-03 09:29 | Discharge Summary ---
Date of Service April 03, 2022 Admission HPI Per Admitting Provider 81 year old female with history of DM, HTN, CKD 3, anemia, PE/DVT on Eliquis, Asthma, Hyponatremia presenting with weakness, garbled speech, confusion, dysphagia. Patient recently admitted to [facility] for weakness, hyponatremia and was subsequently transferred to [facility]. Apparently, patient's weakness did not improve while at [facility]. She was then transferred to [facility]. Today, patient was noted to have "garb led speech", also failed swallow evaluation by speech therapist, and was also confused. She was then brought to [facility]. CT head, CT angio: unrevealing Brain MRI: unrevealing crea increased at 1.2 UA: possible UTI CXR: no infiltrates On exam, patient seen sleeping, drowsy. Oriented to person and place. States she feels washed out, also has productive cough. Denies inability to swallow saliva Denies focal weakness or numbness Appetite is poor No other symptoms Admission Exam Per Admitting Provider General- oriented x 2, not in distress, speaks in shortness sentences with no effort or accessory muscle use appears weak Head- atraumatic Eyes- PERRL, EOMI, anicteric ENT- (+) severely dry oral mucosa, thrush Neck- supple, no JVD, no adenopathy, no thyromegaly; carotids +2/2, no bruits appreciated Lungs- clear to auscultation bilaterally, no rales/wheezes Heart- normal rate, regular rhythm; no murmur, no gallop, no rub appreciated Abdomen- normal bowel sounds, nondistended, soft, nontender, no masses or hepatosplenomegaly Extremities- no pretibial edema, no calf tenderness; peripheral pulses intact Neuro-drowsy, oriented x 2; CN 2-12 grossly intact; motor 5/5 bilaterally;sensation 100% on all extremities; no other gross focal neurologic deficits Skin- warm & dry Principal Diagnosis Adult Failure to thrive Severe malnutrition Dysphagia Discharge Data Allergies Allergy/AdvReac Type Severity Reaction Status Date / Time sitagliptin Allergy Severe ANAPHYLAXIS Verified 03/22/22 13:14 empagliflozin Allergy Intermediate Blister Verified 03/22/22 13:14 [From Jardiance] furosemide Allergy Intermediate rash from Verified 03/22/22 13:14 "GENERIC" lasix hydrochlorothiazide Allergy Intermediate Rash Verified 03/22/22 13:14 Sulfa (Sulfonamide Allergy Intermediate PATEINT Verified 03/22/22 13:14 Antibiotics) HAS TOLERATED LASIX metoprolol Allergy Unknown ON MED LIST Verified 03/22/22 13:14 Penicillins Allergy Unknown Unknown Verified 03/22/22 13:14 codeine AdvReac Intermediate Confusion Verified 03/22/22 13:14 fenofibrate AdvReac Intermediate Muscle Pain Verified 03/22/22 13:14 prednisone AdvReac Intermediate delerium Verified 03/22/22 13:14 [id number]-UEJ-TmL Reductase AdvReac Intermediate elevated ck Verified 03/22/22 13:14 Inhibitor [Rsysgtg-Bjd-Abl Reductase Inhibitor] Consultations 03/22/22 17:52 Consult Neurology Routine 03/25/22 12:22 Consult Palliative Care Routine 04/01/22 13:23 Consult Palliative Care Routine Ordered Studies 03/22/22 11:10 CT abd pelvis IV con only Stat CT angio head wo/w Stat CT angio neck with con Stat 03/22/22 14:55 MR brain wo con Stat 03/25/22 11:30 FL video swallow Routine 03/26/22 22:30 CT head/brain wo con Urgent 03/28/22 06:15 CT head/brain wo con Urgent Hospital Course (1) Adult failure to thrive: (2) Severe malnutrition: (3) Oropharyngeal dysphagia: Patient presented with worsening weakness, confusion, dysphagia CT head and MRI brain did not show acute abnormalities Patient was evaluated by Neurology Patient was evaluated by speech therapist and had video swallow which showed aspiration. Patient was started on PPN However, patient's clinical status did not improve Family decided to transition to comfort measures only. Patient on 04/03/22 at 8:59AM Total Time Total Time Spent Total Time Spent (In Minutes): 35 Total Time Includes: Examination of the Patient, Discharge Planning and Other Discharge Plan Discharge Items Patient Disposition: Other Date/Time: 04/03/22 08:59
--- NOTE | 2022-04-04 15:28 | Coding Query ---
CODING QUERY To promote full compliance with coding requirements relating to patient care, provider participation is requested in all cases of toe puncher uncertainty. Please assist us with the question(s) below: Coding Question(s): Pt admitted with failure to thrive, garbled speech, confusion and dysphagia. Please document, if known or suspected, the etiology of the dysphagia/failure to thrive. Thanks for your help! Vernon Finnegan [facility] Physician's Response(s): Suspected Principal Diagnosis: "that condition established after study, to be chiefly responsible for occasioning the admission of the patient to the hospital for care." Co-Existing Principal Diagnosis: "when two or more diagnoses equally meet the criteria for principal diagnosis as determined by the circumstances of admission, diagnostic work up, and/or therapy provided, and the Alphabetic Index, Tabular List, or another coding guideline does not provide sequencing direction, any one of the diagnoses may be sequenced first." "When the physician has documented what appears to be a current diagnosis in the body of the record, but has not included the diagnosis in the final diagnostic statement, the physician should be asked whether the diagnosis should be added." (Source Coding [facility] 2 QTR90. p3-4) JANNIE
--- NOTE | 2022-04-06 05:01 | Coding Query ---
CODING QUERY To promote full compliance with coding requirements relating to patient care, provider participation is requested in all cases of die forger uncertainty. Please assist us with the question(s) below: Coding Question(s): 81 year-old admitted with DM, HTN, CKD3, hyponatremic presenting with weakness, garbled speech, dysphagia presenting from [facility]. Failure to thrive, severe malnutrition and oropharyngeal dysphagia. Neuro consulted, Myasthenia Gravis ruled out. * Please document, if known or suspected, the etiology of the weakness,garbled speech and dysphagia. Thanks for your help! Vernon Finnegan [facility] Physician's Response(s): Unknown etiology of dysphagia Poor intake contributed to malnutrition Principal Diagnosis: "that condition established after study, to be chiefly responsible for occasioning the admission of the patient to the hospital for care." Co-Existing Principal Diagnosis: "when two or more diagnoses equally meet the criteria for principal diagnosis as determined by the circumstances of admission, diagnostic work up, and/or therapy provided, and the Alphabetic Index, Tabular List, or another coding guideline does not provide sequencing direction, any one of the diagnoses may be sequenced first." "When the physician has documented what appears to be a current diagnosis in the body of the record, but has not included the diagnosis in the final diagnostic statement, the physician should be asked whether the diagnosis should be added." (Source Coding Clinic 2 QTR90. p3-4) MAURICED
== END 2022-04-03 10:15 | disposition expired | DRG 391 ==
LOC: ED 10:47 → 2N 15:03 → SUATTDRO 15:03 → 2N 15:59 → 2W 04-01 18:30